=== PATIENT | male | born 1935 | race Hispanic/Latino ===

== ENCOUNTER 2018-12-22 11:50 | Observation (INO) | payer MEDICARE, OTHER ==
[~2018-12-22] VITALS: Ht 180.3 cm; Wt 61.4 kg
[~2018-12-22 11:50] MED LIST: ADVAIR 250-501 EACH INH; AMLODIPINE BESY10 MG PO; CLOPIDOGREL75 MG PO; GABAPENTIN100 MG; GLIMEPIRIDE1 MG; HYDROCHLOROTH12.5 M1 PO; LISINOPRIL20 MG PO; METOPROLOL TART50 MG PO; OMEPRAZOLE20 M1 PO; OMEPRAZOLE40 MG PO; PREDNISONE5 M1 PO; WARFARIN SODIUM2 MG PO; WARFARIN SODIUM3 MG PO
--- OUTSIDE RECORDS SUMMARY | 2018-12-22 11:53 | XMS REPORT | Clinical Summary ---
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 7 mcg/dose DISKUS Active albuterol (PROAIR Inhale 1-2 0 HFA,PROVENTIL puffs. 7 HFA,VENTOLIN HFA) 90 mcg/actuation inhaler Active amLODIPine (NORVASC) 5 mg Take 1 tablet 0 tablet by mouth. 7 Active levothyroxine (SYNTHROID, Take 25 mcg 0 LEVOXYL) 25 mcg tablet by mouth 8 daily. Active glimepiride (AMARYL) 1 MG Take 1 mg by 0 tablet mouth. Active metoprolol tartrate Take 25 mg by 0 (LOPRESSOR) 25 mg tablet mouth every 8 12 (twelve) hours. Active omeprazole (PriLOSEC) 40 0 MG capsule 8 Active warfarin (COUMADIN) 3 MG Take 3 mg by 0 tablet mouth. Active predniSONE (DELTASONE) 5 TAKE 1 TABLET 0 mg tablet BY MOUTH 8 EVERY DAY WITH FOOD/MILK Active hydroCHLOROthiazide Take 50 mg by 0 (HYDRODIURIL) 50 MG mouth daily. tablet Active ofloxacin (FLOXIN) 0.3 % 5 drops 0 otic solution daily. 01/20/2018 ofloxacin (FLOXIN) 0.3 % Administer 5 10 mL 2 otic solution drops to the 8 right ear 2 (two) times a day for 10 days. Active Problems No known active problems Encounters Care Team Description Date Type Specialty Shy Dillard MD Multiple nasal polyps (Primary Dx); Mixed hearing loss, bilateral; Tinnitus, bilateral 01/30/2018 Office Visit Otolaryngology Shy Dillard MD Bilateral impacted cerumen (Primary Dx); History of cholesteatoma; History of nasal polyp; Sensorineural hearing loss (SNHL) of both ears; Other infective acute otitis externa of right ear 01/10/2018 Office Visit Otolaryngology after 12/21/2017 Social History Date Tobacco Use Types Packs/Day Years Used Former Smoker Smokeless Tobacco: Never Used Alcohol Use Drinks/Week oz/Week Comments No Sex Assigned at Date Recorded Not on file Industry Job Start Date Occupation Not on file Not on file Not on file Travel End Travel History Travel Start No recent travel history available. Last Filed Vital Signs Time Taken Vital Sign Reading 01/30/2018 2:28 PM CDT Blood Pressure 183/83 01/30/2018 2:28 PM CDT Pulse 54 - Temperature - - Respiratory Rate - - Oxygen Saturation - - Inhaled Oxygen - Concentration 01/30/2018 2:28 PM CDT Weight 68 kg (150 lb) 01/30/2018 2:28 PM CDT Height 180.3 cm (5' 11") 01/30/2018 2:28 PM CDT Body Mass Index 20.92 Plan of Treatment Health Maintenance Due Date Last Done Comments SHINGLES VACCINES (#1) 1986 65+ PNEUMOCOCCAL VACCINE 2001 (1 of 2 - PCV13) PNEUMOCOCCAL 2001 POLYSACCHARIDE VACCINE AGE 65 AND OVER INFLUENZA VACCINE 05/30/2018 Results Not on fileafter 12/21/2017 Insurance Payer Benefit Subscriber ID Type Phone Address Plan / Group [employer] xxxxxxxxx O MCR Advance Directives Patient has advance care planning documents on file. For more information, joni owusu contact: Arturo Rasmussen [address] [place] [address]
--- OUTSIDE RECORDS SUMMARY | 2018-12-22 11:54 | XMS REPORT | Continuity of Care Document ---
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 11/28/2016 [facility] Asthma Resolved Problem 11/30/2018 [facility] Heart attack Resolved Problem 11/30/2018 [facility] Hypertension Resolved Problem 11/30/2018 [facility] Stroke Resolved Problem 11/30/2018 [facility] MALIGNANT NEOPLASM OF RIGHT KIDNEY, EXCE Active [facility] DIZZINESS AND GIDDINESS Active [facility] Medications Medication Details Route Status Patient Instructions Ordering Provider Order Date Source Warfarin 6 mg, 2 tab, Route: PO, Drug form: TAB, Q5PM, Dosing Weight 67.926, kg, Start date: 11/28/18 17:00:00 TRANSISTOR TESTER, Duration: 1 doses or times, Stop date: 11/28/18 17:00:00 CSTNotes: Nurse to ensure documentation of patient education per anticoagulation policy. Avoid large intake of vitamin-K containing foods diet. (Same As: Coumadin) WASTE: F/P - P Waste Black; E - P Waste Black Inactive 11/28/2018 [facility] Kirby packet 1 pkt, Route: PO, Drug Form: PWDR, Dosing Weight 67.926, kg, BID-Before Meals, Start date: 11/28/18 16:30:00 TRANSISTOR TESTER, Duration: 14 day, Stop date: 12/12/18 7:30:00 CSTNotes: (Same as: Kirby Mccarthy) Inactive 11/28/2018 [facility] losartan 100 mg oral tablet 100 mg=1 tab, PO, Daily, # 30 tab, 3 Refill(s) Active 11/28/2018 [facility] isosorbide mononitrate 60 mg oral tablet, extended release 60 mg=1 tab, PO, QAM, # 30 tab, 3 Refill(s) Active 11/28/2018 [facility] metoprolol tartrate 25 mg oral tablet 12.5 mg=0.5 tab, PO, Q12H, # 30 tab, 3 Refill(s) Active 11/28/2018 [facility] clopidogrel 75 mg oral tablet 75 mg=1 tab, PO, Daily, # 30 tab, 3 Refill(s) Active 11/28/2018 [facility] atorvastatin 40 mg oral tablet 40 mg=1 tab, PO, Bedtime, # 30 tab, 3 Refill(s) Active 11/28/2018 [facility] Aspirin 81 MG Enteric Coated Tablet 81 mg=1 tab, PO, Daily, # 100 tab, 3 Refill(s) Active 11/28/2018 [facility] pantoprazole 40 mg oral enteric coated tablet 40 mg=1 tab, PO, Q24H, # 30 tab, 3 Refill(s) Active 11/28/2018 [facility] NIFEdipine 60 mg oral tablet, extended release 60 mg=1 tab, PO, BID, # 60 tab, 3 Refill(s) Active 11/28/2018 [facility] normal saline 0.9% IV 250 mL 250 mL, Rate: 75 ml/hr, Infuse over: 3.3 hr, Route: IV, Dosing Weight 67.926 kg, Total Volume: 250, Start date: 11/28/18 10:38:00 TRANSISTOR TESTER, Duration: 1 doses or times, Stop date: 11/28/18 13:55:00 TRANSISTOR TESTER, 1.85, m2 Inactive 11/28/2018 [facility] Coumadin 7.5 mg, 1 tab, Route: PO, Drug form: TAB, Q5PM, Dosing Weight 67.926, kg, Start date: 11/27/18 17:00:00 TRANSISTOR TESTER, Duration: 1 doses or times, Stop date: 11/27/18 17:00:00 CSTNotes: Nurse to ensure documentation of patient education per anticoagulation policy. Avoid large intake of vitamin-K containing foods diet. WASTE: F/P - P Waste Black; E - P Waste Black (Same As: Coumadin) Inactive 11/27/2018 [facility] magnesium citrate 58.2 MG/ML Oral Solution 300 ml, Route: PO, Drug Form: LIQ, Dosing Weight 67.926, kg, ONCE, Start date: 11/27/18 15:45:00 TRANSISTOR TESTER, Stop date: 11/27/18 15:45:00 CSTNotes: (Same as: Citrate of Magnesia) Concentration: 1.745 gm / 30 mL Inactive 11/27/2018 [facility] magnesium citrate 58.2 MG/ML Oral Solution 300 ml, Route: PO, Drug Form: LIQ, Dosing Weight 67.926, kg, ONCE, Start date: 11/27/18 12:51:00 TRANSISTOR TESTER, Stop date: 11/27/18 12:51:00 CSTNotes: (Same as: Citrate of Magnesia) Concentration: 1.745 gm / 30 mL Inactive 11/27/2018 [facility] molasses 240 mL, Route: KS, Drug Form: SYRP, Dosing Weight 67.926, kg, ONCE, Milk of Molasses Enema, Start date: 11/27/18 12:50:00 TRANSISTOR TESTER, Stop date: 11/27/18 12:50:00 CSTNotes: (Same as:Molasses) Inactive 11/27/2018 [facility] Lactulose 667 MG/ML Oral Solution 10 gm, 15 ml, Route: PO, Drug form: SYRP, Daily, Dosing Weight 67.926, kg, PRN Constipation, Start date: 11/27/18 10:20:00 TRANSISTOR TESTER, Duration: 30 day, Stop date: 12/27/18 10:19:00 CSTNotes: (Same as:Chronulac) No Longer Active 11/27/2018 [facility] Zofran 4 mg, 2 mL, Route: IVP, Drug form: INJ, ONCE, Dosing Weight 67.926, kg, Priority: STAT, Start date: 11/27/18 8:57:00 TRANSISTOR TESTER, Stop date: 11/27/18 8:57:00 CSTNotes: (Same as: Zofran) MEDICATION WASTE Product Size: 4 mg Product Wasted: ___ mg Inactive 11/27/2018 [facility] Tylenol 325 mg, 1 tab, Route: PO, Drug form: TAB, ONCE, Start date: 11/26/18 18:45:00 TRANSISTOR TESTER, Stop date: 11/26/18 18:45:00 CSTNotes: Do not exceed 4 gm/day. (Same as: Tylenol) Inactive 11/27/2018 [facility] Acetaminophen 300 MG / Codeine Phosphate 30 MG Oral Tablet [Tylenol with Codeine #3] 1 tab, Route: PO, Dosing Weight 67.926, kg, ONCE, Start date: 11/26/18 17:51:00 TRANSISTOR TESTER, Stop date: 11/26/18 17:51:00 TRANSISTOR TESTER Inactive 11/26/2018 [facility] Warfarin 5 mg, 1 tab, Route: PO, Drug form: TAB, Q5PM, Dosing Weight 67.926, kg, Start date: 11/26/18 17:00:00 TRANSISTOR TESTER, Duration: 1 doses or times, Stop date: 11/26/18 17:00:00 CSTNotes: Nurse to ensure documentation of patient education per anticoagulation policy. Avoid large intake of vitamin-K containing foods diet. WASTE: F/P - P Waste Black; E - P Waste Black (Same As: Coumadin) Inactive 11/26/2018 [facility] Miralax 17 gm, 1 pkt, Route: PO, Drug form: PWDR, ONCE, Dosing Weight 67.926, kg, Start date: 11/26/18 16:42:00 TRANSISTOR TESTER, Stop date: 11/26/18 16:42:00 CSTNotes: Dissolve in 8 oz of water or juice. (Same as: Uma ax) Inactive 11/26/2018 [facility] Warfarin 5 mg, 1 tab, Route: PO, Drug form: TAB, Q5PM, Dosing Weight 67.926, kg, Start date: 11/25/18 17:00:00 TRANSISTOR TESTER, Duration: 1 doses or times, Stop date: 11/25/18 18:07:00 CSTNotes: Nurse to ensure documentation of patient education per anticoagulation policy. Avoid large intake of vitamin-K containing foods diet. WASTE: F/P - P Waste Black; E - P Waste Black (Same As: Coumadin) Inactive 11/25/2018 [facility] molasses 240 mL, Route: KS, Drug Form: SYRP, Dosing Weight 67.926, kg, ONCE, Milk of Molasses Enema, Start date: 11/24/18 17:32:00 TRANSISTOR TESTER, Stop date: 11/24/18 17:32:00 CSTNotes: (Same as:Molasses) Inactive 11/24/2018 [facility] Docusate Sodium 50 MG / sennosides, [facility] 8.6 MG Oral Tablet 1 tab, Route: PO, Drug Form: TAB, Dosing Weight 67.926, kg, BID, Start date: 11/24/18 17:00:00 TRANSISTOR TESTER, Duration: 30 day, Stop date: 12/24/18 9:00:00 CSTNotes: (Same as Senokot-S) Equiv. to Marline-Colace. No Longer Active 11/24/2018 [facility] Warfarin 5 mg, 1 tab, Route: PO, Drug form: TAB, Q5PM, Dosing Weight 67.926, kg, Start date: 11/24/18 17:00:00 TRANSISTOR TESTER, Duration: 1 doses or times, Stop date: 11/24/18 17:00:00 CSTNotes: Nurse to ensure documentation of patient education per anticoagulation policy. Avoid large intake of vitamin-K containing foods diet. WASTE: F/P - P Waste Black; E - P Waste Black (Same As: Coumadin) Inactive 11/24/2018 [facility] Docusate 100 mg, 1 cap, Route: PO, Drug form: CAP, BID, Dosing Weight 67.926, kg, PRN Constipation, Start date: 11/24/18 15:41:00 TRANSISTOR TESTER, Duration: 30 day, Stop date: 12/24/18 15:40:00 CSTNotes: (Same as: Colace) (Do Not Crush) No Longer Active 11/24/2018 [facility] Heparin 80 unit/kg Bolus (Heparin Dosing Weight) Route: IVP, PRN, 5,400 unit, 5.4 mL, Drug form: INJ, PRN, Heparin Protocol, Start date: 11/24/18 11:30:00 TRANSISTOR TESTER Stop date: 12/24/18 11:29:00 TRANSISTOR TESTER, 30 day No Longer Active 11/24/2018 [facility] heparin additive 25,000 unit [18 unit/kg/hr] + Premix Diluent Sodium Chloride 0.45% 500 mL 500 mL, Rate: 24.45 ml/hr, Infuse over: 20.4 hr, Route: IV, Dosing Weight 67.93 kg, Total Volume: 500 mL, Start date: 11/24/18 11:30:00 TRANSISTOR TESTER, Duration: 30 day, Stop date: 12/24/18 11:29:00 TRANSISTOR TESTER, 1.85, [id number]: Total Concentration=50 unit/ ml Total dijtuo=262 ml Send Med Request 2 hours prior to next bag No Longer Active 11/24/2018 [facility] Heparin 40 unit/kg Bolus (Heparin Dosing Weight) Route: IVP, PRN, 2,700 unit, 2.7 mL, Drug form: INJ, PRN, Heparin Protocol, Start date: 11/24/18 11:30:00 TRANSISTOR TESTER Stop date: 12/24/18 11:29:00 TRANSISTOR TESTER, 30 day No Longer Active 11/24/2018 [facility] Losartan 100 mg, 2 tab, Route: PO, Drug form: TAB, Daily, Dosing Weight 69.091, kg, Start date: 11/24/18 9:00:00 TRANSISTOR TESTER, Duration: 30 day, Stop date: 12/23/18 9:00:00 CSTNotes: (Same as: Cozaar) No Longer Active 11/24/2018 [facility] NIFEdipine 60 mg oral tablet, extended release 60 mg, 1 tab, Route: PO, Drug form: ERTAB, BID, Dosing Weight 67.926, kg, Start date: 11/23/18 11:07:00 TRANSISTOR TESTER, Duration: 30 day, Stop date: 12/23/18 9:00:00 CSTNotes: (Same as: Adalat CC, Procardia XL) Give on empty stomach. Take 1 hour before or 2 hours after meal; "Avoid grapefruit and grapefruit juice". Do not crush No Longer Active 11/23/2018 [facility] Nicardipine 40 mg, 200 mL, Rate: Titrate, Start Dose: 5 mg/hr, Titration: 2.5 mg/hr every 15 minutes, Goal(s): MAPNotes: Same as: Cardene No Longer Active 11/23/2018 [facility] Enoxaparin 40 mg, 0.4 mL, Route: SUB-Q, Drug form: INJ, [id number], Dosing Weight 67.926, kg, Start date: 11/23/18 9:00:00 TRANSISTOR TESTER, Duration: 30 day, Stop date: 12/22/18 9:00:00 CSTNotes: (Same as: Lovenox) No Longer Active 11/23/2018 [facility] clopidogrel 75 mg, 1 tab, Route: PO, Drug form: TAB, Daily, Dosing Weight 67.926, kg, Start date: 11/23/18 9:00:00 TRANSISTOR TESTER, Duration: 30 day, Stop date: 12/22/18 9:00:00 CSTNotes: (Same As: Plavix) No Longer Active 11/23/2018 [facility] Losartan 50 mg, 1 tab, Route: PO, Drug form: TAB, ONCE, Dosing Weight 67.926, kg, Start date: 11/23/18 8:30:00 TRANSISTOR TESTER, Stop date: 11/23/18 8:30:00 CSTNotes: (Same as: Raji) Inactive 11/23/2018 [facility] Nitroglycerin 0.4 mg, 1 tab, Route: SL, Drug form: TAB, Q5Min, Dosing Weight 67.926, kg, PRN Chest Pain, Start date: 11/22/18 14:57:00 TRANSISTOR TESTER, Duration: 3 doses or times, Stop date: Limited # of timesNotes: (Same as: Nitroquick, Nitrostat) "Do Not Crush" Sublingual tablet No Longer Active 11/22/2018 [facility] Losartan 100 mg, Route: PO, Drug form: TAB, Daily, Dosing Weight 69.091, kg, Start date: 11/22/18 9:00:00 TRANSISTOR TESTER, Duration: 30 day, Stop date: 12/21/18 9:00:00 CSTNotes: (Same as: Raji) No Longer Active 11/22/2018 [facility] Pepcid 20 mg, 2 mL, Route: IV, Drug form: INJ, ONCE, Dosing Weight 67.784, kg, Start date: 11/22/18 8:00:00 TRANSISTOR TESTER, Stop date: 11/22/18 8:00:00 CSTNotes: (Same as: Pepcid) Can be dilute in 5-10cc NS IVP: Slow IV push over at least 2 minutes. Inactive 11/22/2018 [facility] Solu-Medrol 125 mg, 2 mL, Route: IV, Drug form: INJ, ONCE, Dosing Weight 67.784, kg, Start date: 11/22/18 8:00:00 TRANSISTOR TESTER, Stop date: 11/22/18 8:00:00 CSTNotes: (Same as:Solu-MEDROL, A-Methapred) Inactive 11/22/2018 [facility] Sodium Chloride 0.9% (Bolus) IV 250 mL, 250 ml/hr, Infuse Over: 1 hr, Route: IV, 250, Drug form: INJ, ONCALL, Priority: Routine, Dosing Weight 67.784 kg, Start date: 11/22/18 3:00:00 TRANSISTOR TESTER, Duration: 1 doses or times No Longer Active 11/22/2018 [facility] Sodium Chloride 0.9% IV 750 mL 750 mL, Rate: 75 ml/hr, Infuse over: 10 hr, Route: IVPB, Dosing Weight 67.784 kg, Total Volume: 750, Start date: 11/22/18 2:48:00 TRANSISTOR TESTER, Duration: 24 hr, Stop date: 11/23/18 2:47:00 TRANSISTOR TESTER, 1.85, m2 No Longer Active 11/22/2018 [facility] Solu-Medrol 125 mg, 2 mL, Route: IV, Drug form: INJ, ONCE, Dosing Weight 67.784, kg, Start date: 11/21/18 12:59:00 TRANSISTOR TESTER, Stop date: 11/21/18 12:59:00 CSTNotes: (Same as:Solu-MEDROL, A-Methapred) Inactive 11/21/2018 [facility] Aspirin 81 mg, 1 tab, Route: PO, Drug form: ECTAB, Daily, Dosing Weight 69.091, kg, Start date: 11/20/18 17:00:00 TRANSISTOR TESTER, Duration: 30 day, Stop date: 12/20/18 9:00:00 CSTNotes: Do not crush or chew. (Same As: Ecotrin) No Longer Active 11/20/2018 [facility] EPINEPHrine 0.3 mg injectable kit 0.3 mg, Route: IM, Drug form: INJ, ONCALL, Dosing Weight 69.091, kg, Start date: 11/20/18 15:00:00 TRANSISTOR TESTER, Duration: 1 doses or timesNotes: (Same as: Epipen Auto Inejctor) Prefilled syringe for IM use. No Longer Active 11/20/2018 [facility] Losartan 25 mg, 1 tab, Route: PO, Drug form: TAB, Daily, Dosing Weight 69.091, kg, Start date: 11/20/18 12:00:00 TRANSISTOR TESTER, Duration: 30 day, Stop date: 12/20/18 9:00:00 CSTNotes: (Same as: Cozaar) No Longer Active 11/20/2018 [facility] atorvastatin 40 mg, 1 tab, Route: PO, Drug form: TAB, Bedtime, Dosing Weight 69.091, kg, Start date: 11/17/18 21:00:00 TRANSISTOR TESTER, Duration: 30 day, Stop date: 12/16/18 21:00:00 CSTNotes: (Same as: Lipitor) No Longer Active 11/18/2018 [facility] Prednisone 5 mg, 1 tab, Route: PO, Drug form: TAB, Daily, Dosing Weight 69.091, kg, Start date: 11/17/18 9:00:00 TRANSISTOR TESTER, Duration: 30 day, Stop date: 12/16/18 9:00:00 CSTNotes: Take with food. No Longer Active 11/17/2018 [facility] Omeprazole 40 mg, Route: PO, Drug form: DRC, Daily, Dosing Weight 69.091, kg, Start date: 11/17/18 9:00:00 TRANSISTOR TESTER, Duration: 30 day, Stop date: 12/16/18 9:00:00 TRANSISTOR TESTER Inactive 11/17/2018 [facility] Imdur 60 mg, 1 tab, Route: PO, Drug form: ERTAB, QAM, Dosing Weight 69.091, kg, Start date: 11/17/18 9:00:00 TRANSISTOR TESTER, Duration: 30 day, Stop date: 12/16/18 9:00:00 CSTNotes: (Same as:Imdur) "Do Not Crush" Take on empty stomach/ full glass of water. Do not crush No Longer Active 11/17/2018 [facility] metoprolol tartrate 25 mg, 1 tab, Route: PO, Drug form: TAB, BID, Dosing Weight 69.091, kg, Start date: 11/17/18 9:00:00 TRANSISTOR TESTER, Duration: 30 day, Stop date: 12/16/18 17:00:00 CSTNotes: (Same as: Lopressor) Inactive 11/17/2018 [facility] Amlodipine 5 mg, 1 tab, Route: PO, Drug form: TAB, BID, Dosing Weight 69.091, kg, Start date: 11/17/18 9:00:00 TRANSISTOR TESTER, Duration: 30 day, Stop date: 12/16/18 17:00:00 CSTNotes: (Same as: Norvasc) Inactive 11/17/2018 [facility] Furosemide 40 MG Oral Tablet [Lasix] 40 mg, 1 tab, Route: PO, Drug form: TAB, Daily, Dosing Weight 69.091, kg, Start date: 11/17/18 9:00:00 TRANSISTOR TESTER, Duration: 30 day, Stop date: 12/16/18 9:00:00 CSTNotes: (Same as: Lasix) May cause GI upset. Give with food or milk. No Longer Active 11/17/2018 [facility] Protonix 40 mg, 1 tab, Route: PO, Drug form: ECTAB, Q24H, Start date: 11/17/18 7:00:00 TRANSISTOR TESTER, Duration: 30 day, Stop date: 12/16/18 7:00:00 CSTNotes: Tablet should not be chewed or crushed. (Same as: Protonix) No Longer Active 11/17/2018 [facility] Thyroxine 25 microgram, 1 tab, Route: PO, Drug form: TAB, Daily, Dosing Weight 69.091, kg, Start date: 11/17/18 6:30:00 TRANSISTOR TESTER, Duration: 30 day, Stop date: 12/16/18 6:30:00 CSTNotes: Take 1 hour before or 2 hours after meal; Enteral feeds may interefere with the absorption of this medication. (Same as:Levothroid) No Longer Active 11/17/2018 [facility] Amlodipine 10 mg, 1 tab, Route: PO, Drug form: TAB, Daily, Dosing Weight 69.091, kg, Start date: 11/17/18 0:53:00 TRANSISTOR TESTER, Duration: 30 day, Stop date: 12/16/18 9:00:00 CSTNotes: (Same as: Norvasc) No Longer Active 11/17/2018 [facility] heparin additive 25,000 unit [18 unit/kg/hr] + Premix Diluent Sodium Chloride 0.45% 500 mL 500 mL, Rate: 24.87 ml/hr, Infuse over: 20.1 hr, Route: IV, Dosing Weight 69.091 kg, Total Volume: 500 mL, Start date: 11/17/18 0:29:00 TRANSISTOR TESTER, Duration: 30 day, Stop date: 12/17/18 0:28:00 TRANSISTOR TESTER, 1.86, [id number]: Total Concentration=50 unit/ ml Total zvoiec=198 ml Send Med Request 2 hours prior to next bag No Longer Active 11/17/2018 [facility] Heparin 40 unit/kg Bolus (Heparin Dosing Weight) Route: IVP, PRN, 2,800 unit, 2.8 mL, Drug form: INJ, PRN, Heparin Protocol, Start date: 11/17/18 0:29:00 TRANSISTOR TESTER Stop date: 12/17/18 0:28:00 TRANSISTOR TESTER, 30 day No Longer Active 11/17/2018 [facility] Heparin 80 unit/kg Bolus (Heparin Dosing Weight) Route: IVP, PRN, 5,500 unit, 5.5 mL, Drug form: INJ, PRN, Heparin Protocol, Start date: 11/17/18 0:29:00 TRANSISTOR TESTER Stop date: 12/17/18 0:28:00 TRANSISTOR TESTER, 30 day No Longer Active 11/17/2018 [facility] Calcium Gluconate 2 gm, 20 mL, Route: IVPB, PRN, Dosing Weight 69.091, kg, PRN Abnormal Lab Result, For NON-ICU Patients Only., Start date: 11/17/18 0:26:00 TRANSISTOR TESTER, Duration: 30 day, Stop date: 12/17/18 0:25:00 CSTNotes: WASTE: F/P - Sink; E - Municipal Trash Bin No Longer Active 11/17/2018 [facility] Magnesium Oxide 800 mg, 2 tab, Route: PO, Drug form: TAB, PRN, Dosing Weight 69.091, kg, PRN Abnormal Lab Result, For NON-ICU Patients Only., Start date: 11/17/18 0:26:00 TRANSISTOR TESTER, Duration: 30 day, Stop date: 12/17/18 0 :25:00 CSTNotes: (Same as: Mag-Ox 400) Magnesium oxide [id number] elemental magnesium Dose=____mg magnesium oxide (___mg elemental magnesium) No Longer Active 11/17/2018 [facility] Magnesium Sulfate 2 gm, 50 mL, Route: IVPB, Drug form: INJ, PRN, Dosing Weight 69.091, kg, PRN Abnormal Lab Result, For NON-ICU Patients Only., Start date: 11/17/18 0:26:00 TRANSISTOR TESTER, Duration: 30 day, Stop date: 12/17/18 0:25:00 CSTNotes: WASTE: F/P - Sink; E - Municipal Trash Bin No Longer Active 11/17/2018 [facility] potassium phosphate 30 mmol, 10 mL, Route: IVPB, PRN, Dosing Weight 69.091, kg, PRN Abnormal Lab Result, For NON-ICU Patients Only., Start date: 11/17/18 0:26:00 TRANSISTOR TESTER, Duration: 30 day, Stop date: 12/17/18 0:25:00 CSTNot es: (Same as: K Phosphate.) Do not infuse phosphorous concurrently in the same line as TPN or IVF that contains calcium. For double lumen central lines, phosphorous may be infused in a separate lumen from TPN. 1 mMol phoshate has 1.47 mEq potassium Infuse over 4 hours No Longer Active 11/17/2018 [facility] Potassium Chloride 10 mEq, 50 mL, Route: IVPB, Drug form: INJ, PRN, Dosing Weight 69.091, kg, PRN Abnormal Lab Result, For NON-ICU Patients Only, Start date: 11/17/18 0:26:00 TRANSISTOR TESTER, Duration: 30 day, Stop date: 12/17/18 0:25:00 CSTNotes: (Same as: KCL) Infuse over 2 hours. No Longer Active 11/17/2018 [facility] sodium phosphate 30 mmol, 10 mL, Route: IVPB, PRN, Dosing Weight 69.091, kg, PRN Abnormal Lab Result, For NON-ICU Patients Only., Start date: 11/17/18 0:26:00 TRANSISTOR TESTER, Duration: 30 day, Stop date: 12/17/18 0:25:00 CSTNot es: Infuse over 4 hour. Do not infuse phosphorous concurrently in the same line as TPN or IVF that contains calcium. For double lumen central lines, phosphorous may be infused in a separate lumen from TPN. No Longer Active 11/17/2018 [facility] potassium phosphate-sodium phosphate 250 mg-280 mg-160 mg oral powder for reconstitution 2 pkt, Route: PO, Drug Form: PDR/REC, Dosing Weight 69.091, kg, PRN, PRN Abnormal Lab Result, For NON-ICU Patients Only, Start date: 11/17/18 0:26:00 TRANSISTOR TESTER, Duration: 30 day, Stop date: 12/17/18 0:25:00 CSTNotes: (Same as: Phos-NaK) Each 1.5 gm pkt has 250mg phosphorous. Mix w/2.5oz water and stir. No Longer Active 11/17/2018 [facility] meclizine 25 mg oral tablet 25 mg=1 tab, PO, Daily, 0 Refill(s) No Longer Active 11/17/2018 [facility] Warfarin 4 mg, 2 tab, Route: PO, Drug form: TAB, Q- and Th, Dosing Weight 69.545, kg, Start date: 03/06/18 9:00:00 CDT, Duration: 30 day, Stop date: 04/03/18 9:00:00 CDTNotes: Nurse to ensure documentation of patient education per anticoagulation policy. Avoid large intake of vitamin-K containing foods diet. (Same As: Coumadin) WASTE: F/P - P Waste Black; E - P Waste Black No Longer Active 03/06/2018 [facility] atorvastatin 80 mg, 2 tab, Route: PO, Drug form: TAB, Bedtime, Dosing Weight 69.545, kg, Start date: 03/05/18 21:00:00 CDT, Duration: 30 day, Stop date: 04/03/18 21:00:00 CDTNotes: (Same as: Lipitor) Inactive 03/06/2018 [facility] Omnipaque 350 75 ml, Route: IV, Drug Form: SOLN, Dosing Weight 69.545, kg, ONCE, Start date: 03/05/18 12:29:00 CDT, Stop date: 03/05/18 12:29:00 CDTNotes: (same as:Omnipaque 350). WASTE: F/P - Black; E - Municipal Trash Bin Inactive 03/05/2018 [facility] Warfarin 4 mg, 2 tab, Route: PO, Drug form: TAB, Q-M-W-F, Dosing Weight 69.545, kg, Start date: 03/05/18 9:00:00 CDT, Duration: 30 day, Stop date: 04/02/18 9:00:00 CDTNotes: Nurse to ensure documentation of patient education per anticoagulation policy. Avoid large intake of vitamin-K containing foods diet. (Same As: Coumadin) WASTE: F/P - P Waste Black; E - P Waste Black Inactive 03/05/2018 [facility] atorvastatin 40 mg, 1 tab, Route: PO, Drug form: TAB, Bedtime, Dosing Weight 69.545, kg, Start date: 03/04/18 21:00:00 CDT, Duration: 30 day, Stop date: 04/02/18 21:00:00 CDTNotes: (Same as: Lipitor) No Longer Active 03/05/2018 [facility] Hydralazine 10 mg, 0.5 mL, Route: IV, Drug form: INJ, Q3H, Dosing Weight 69.545, kg, PRN Other -See Comment, Start date: 03/04/18 13:16:00 CDT, Duration: 30 day, Stop date: 04/03/18 13:15:00 CDT, SBP>160 mmHgNotes: (Same as: Apresoline) Push over 5 minutes No Longer Active 03/04/2018 [facility] Warfarin 3 mg, 3 tab, Route: PO, Drug form: TAB, Q-Sa and Turcios, Dosing Weight 69.545, kg, Start date: 03/04/18 9:00:00 CDT, Stop date: 03/31/18 20:00:00 CDTNotes: Nurse to ensure documentation of patient education per anticoagulation policy. Avoid large intake of vitamin-K containing foods diet. (Same As: Coumadin) WASTE: F/P - P Waste Black; E - P Waste Black No Longer Active 03/04/2018 [facility] budesonide-formoterol 2 puff, Route: INHALER, Drug Form: AERO/A, BID, Start date: 03/04/18 9:00:00 CDT, Duration: 30 day, Stop date: 04/02/18 17:00:00 CDTNotes: (Same as: Symbicort) WASTE: Aerosol - Return to Pharmacy No Longer Active 03/04/2018 [facility] Prednisone 5 mg, 5 mL, Route: PO, Drug form: SOLN, Daily, Dosing Weight 69.545, kg, Start date: 03/04/18 9:00:00 CDT, Duration: 30 day, Stop date: 04/02/18 9:00:00 CDTNotes: (Same as: Liquid Pred) Take with food. Inactive 03/04/2018 [facility] Omeprazole 40 mg, Route: PO, Drug form: DRC, Daily, Dosing Weight 69.545, kg, Start date: 03/04/18 9:00:00 CDT, Duration: 30 day, Stop date: 04/02/18 9:00:00 CDT Inactive 03/04/2018 [facility] metoprolol tartrate 25 mg, 1 tab, Route: PO, Drug form: TAB, BID, Dosing Weight 69.545, kg, Start date: 03/04/18 9:00:00 CDT, Duration: 30 day, Stop date: 04/02/18 17:00:00 CDTNotes: (Same as: Lopressor) No Longer Active 03/04/2018 [facility] Hydrochlorothiazide 25 mg, 1 tab, Route: PO, Drug form: TAB, Daily, Dosing Weight 69.545, kg, Start date: 03/04/18 9:00:00 CDT, Duration: 30 day, Stop date: 04/02/18 9:00:00 CDTNotes: (Same as: Hydrodiuril) With food. No Longer Active 03/04/2018 [facility] Saline Flush 0.9% 10 ml, Route: IVP, Drug Form: INJ, Dosing Weight 69.545, kg, Q12H, Start date: 03/04/18 9:00:00 CDT, Duration: 30 day, Stop date: 04/02/18 21:00:00 CDTNotes: (Same as: BD Posiflush) No Longer Active 03/04/2018 [facility] Thyroxine 25 microgram, 1 tab, Route: PO, Drug form: TAB, Daily, Dosing Weight 69.545, kg, Start date: 03/04/18 9:00:00 CDT, Duration: 30 day, Stop date: 04/02/18 9:00:00 CDTNotes: Take 1 hour before or 2 hours after meal; Enteral feeds may interefere with the absorption of this medication. (Same as:Levothroid) No Longer Active 03/04/2018 [facility] Advair Diskus 250 mcg-50 mcg inhalation powder 1 puff, Route: INHALATION, Drug Form: AERO, Dosing Weight 69.545, kg, BID, Start date: 03/04/18 9:00:00 CDT, Duration: 30 day, Stop date: 04/02/18 17:00:00 CDT Inactive 03/04/2018 [facility] Amlodipine 5 mg, 1 tab, Route: PO, Drug form: TAB, BID, Dosing Weight 69.545, kg, Start date: 03/04/18 9:00:00 CDT, Duration: 30 day, Stop date: 04/02/18 17:00:00 CDTNotes: (Same as: Norvasc) No Longer Active 03/04/2018 [facility] predniSONE 5 mg, 2 tab, Route: PO, Drug form: TAB, Daily, Start date: 03/04/18 9:00:00 CDT, Duration: 30 day, Stop date: 04/02/18 9:00:00 CDTNotes: Take with food. No Longer Active 03/04/2018 [facility] Protonix 40 mg, 1 tab, Route: PO, Drug form: ECTAB, Q12H, Start date: 03/04/18 9:00:00 CDT, Duration: 30 day, Stop date: 04/02/18 21:00:00 CDTNotes: Tablet should not be chewed or crushed. (Same as: Protonix) No Longer Active 03/04/2018 [facility] Dextrose 50% Syringe 25 gm, 50 mL, Route: IVP, Drug Form: INJ, Dosing Weight 69.545, kg, PRN, PRN Blood Glucose Results, Start date: 03/04/18 7:46:00 CDT, Duration: 30 day, Stop date: 04/03/18 7:45:00 CDT No Longer Active 03/04/2018 [facility] Glucagon 1 mg, Route: IM, Drug form: PDR/INJ, PRN, Dosing Weight 69.545, kg, PRN Blood Glucose Results, Start date: 03/04/18 7:46:00 CDT, Duration: 30 day, Stop date: 04/03/18 7:45:00 CDT No Longer Active 03/04/2018 [facility] Insulin Lispro 2 unit, 0.02 mL, Route: SUB-Q, Drug form: SOLN, TID-Before Meals, Dosing Weight 69.545, kg, PRN Blood Glucose Results, Start date: 03/04/18 7:46:00 CDT, Duration: 30 day, Stop date: 04/03/18 7:45:00 CDTNotes: (Same as: Humalog ) Roll in palms of hands gently; Do not shake `vigorously. "Single Patient Use Only " WASTE: F/P - Black; E - Municipal Trash Bin Stable for 28 days at room temperature. Expires in days from Date No Longer Active 03/04/2018 [facility] Saline Flush 0.9% 10 ml, Route: IVP, Drug Form: INJ, Dosing Weight 69.545, kg, PRN, PRN Line Flush, Start date: 03/04/18 7:10:00 CDT, Duration: 30 day, Stop date: 04/03/18 7:09:00 CDTNotes: (Same as: BD Posiflush) No Longer Active 03/04/2018 [facility] non-formulary 80 mg=, PO, Daily, Take 2 capsules (80mg) by mouth every morning. Take on a empty stomach at least 1 hour before or 2 hours after breakfast or lunch, Refill(s) 0 Active 03/04/2018 [facility] Prednisone 5 mg, PO, Daily, Quantity sufficient, 0 Refill(s) Active 03/04/2018 [facility] valsartan 80 mg, PO, Daily, Patient Started on this med Monday. Dizziness started after taking this medication pre patient and spouse, 0 Refill(s) Inactive 03/04/2018 [facility] Warfarin 3 mg, PO, Daily, takes 3mg Monday and Monday, 0 Refill(s) Active 03/04/2018 [facility] Amlodipine 5 mg, PO, BID, 0 Refill(s) Active 03/04/2018 [facility] Hydrochlorothiazide 25 mg, PO, Daily, 0 Refill(s) Active 03/04/2018 [facility] omeprazole 40 mg oral delayed release capsule 40 mg=1 cap, PO, Daily, 0 Refill(s) Active 03/04/2018 [facility] Thyroxine 25 microgram, PO, Daily, 0 Refill(s) Active 03/04/2018 [facility] metoprolol tartrate 25 mg, PO, BID, 0 Refill(s) Active 03/04/2018 [facility] Advair Diskus 250 mcg-50 mcg inhalation powder 1 puff, INHALATION, BID, 0 Refill(s) Active 03/04/2018 [facility] Meclizine 25 mg, Route: PO, Drug form: TAB, ONCE, Dosing Weight 77.727, kg, Priority: STAT, Start date: 03/04/18 2:42:00 CDT, Stop date: 03/04/18 2:42:00 CDT Inactive 03/04/2018 [facility] Saline Flush 0.9% 10 mL, Route: IVP, Drug Form: INJ, Dosing Weight 77.727, kg, PRN, PRN Line Flush, Start date: 03/04/18 0:56:00 CDT, Duration: 30 day, Stop date: 04/03/18 0:55:00 CDTNotes: (Same as: BD Posiflush) No Longer Active 03/04/2018 [facility] Allergies, Adverse Reactions, Alerts Substance Category Reaction Severity Reaction type Status Date Reported Comments Source aspirin Assertion Drug allergy Active [facility] Vicodin Assertion Drug allergy Active [facility] iodine topical Assertion Drug allergy Active [facility] ciprofloxacin Assertion Drug allergy Active [facility] hydrALAZINE Assertion Drug allergy Active [facility] propoxyphene Assertion Drug allergy Active [facility] barium sulfate Assertion Drug allergy Active [facility] Zocor Assertion Drug allergy Active [facility] Benadryl Assertion Drug allergy Active [facility] Januvia Assertion Drug allergy Active [facility] contrast media (iodine-based) Assertion Drug allergy Active [facility] Xarelto Assertion Drug allergy Active [facility] metFORMIN Assertion Drug allergy Active [facility] HYDROcodone Assertion Drug allergy Active [facility] levoFLOXacin Assertion Drug allergy Active [facility] Immunizations Immunization Date Given Site Status Last Updated Comments Source Results Order Name Results Value Reference Range Date Interpretation Comments Source CHEM PANEL eGFR 39 mL/min/1.73m2 11/28/2018 Result Comment: The eGFR is calculated using the CKD-EPI formula. In most young, healthy individuals the eGFR will be >90 mL/min/1.73m2. The eGFR declines with age. An eGFR of 60-89 may be normal in some populations, particularly the elderly, for whom the CKD-EPI formula has not been extensively validated. Use of the eGFR is not recommended in the following populations: Individuals with unstable creatinine concentrations, including patients and those with serious co-morbid conditions. Patients with extremes in muscle mass or diet. The data above are obtained from the National Kidney Disease Education Program (NKDEP) which additionally recommends that when the eGFR is used in patients with extremes of body mass index for purposes of drug dosing, the eGFR should be multiplied by the estimated BMI. [facility] CHEM PANEL CO2 24 meq/L 24 - 32 11/28/2018 [facility] CHEM PANEL Chloride Lvl 108 meq/L 95 - 109 11/28/2018 [facility] CHEM PANEL AGAP 12.4 meq/L 10.0 - 20.0 11/28/2018 [facility] CHEM PANEL Calcium Lvl 8.1 mg/dL 8.5 - 10.5 11/28/2018 [facility] CHEM PANEL BUN 41 mg/dL 7 - 22 11/28/2018 [facility] CHEM PANEL Glucose Lvl 174 mg/dL 70 - 99 11/28/2018 [facility] CHEM PANEL Sodium Lvl 140 meq/L 135 - 145 11/28/2018 [facility] CHEM PANEL Potassium Lvl 4.4 meq/L 3.5 - 5.1 11/28/2018 [facility] CHEM PANEL Creatinine Lvl 1.63 mg/dL 0.50 - 1.40 11/28/2018 [facility] CHEM PANEL eGFR 33 mL/min/1.73m2 11/28/2018 Result Comment: The eGFR is calculated using the CKD-EPI formula. In most young, healthy individuals the eGFR will be >90 mL/min/1.73m2. The eGFR declines with age. An eGFR of 60-89 may be normal in some populations, particularly the elderly, for whom the CKD-EPI formula has not been extensively validated. Use of the eGFR is not recommended in the following populations: Individuals with unstable creatinine concentrations, including patients and those with serious co-morbid conditions. Patients with extremes in muscle mass or diet. The data above are obtained from the National Kidney Disease Education Program (NKDEP) which additionally recommends that when the eGFR is used in patients with extremes of body mass index for purposes of drug dosing, the eGFR should be multiplied by the estimated BMI. [facility] CHEM PANEL Calcium Lvl 8.4 mg/dL 8.5 - 10.5 11/28/2018 [facility] CHEM PANEL CO2 21 meq/L 24 - 32 11/28/2018 [facility] CHEM PANEL Chloride Lvl 107 meq/L 95 - 109 11/28/2018 [facility] CHEM PANEL AGAP 15.4 meq/L 10.0 - 20.0 11/28/2018 [facility] CHEM PANEL BUN 43 mg/dL 7 - 22 11/28/2018 [facility] CHEM PANEL Sodium Lvl 139 meq/L 135 - 145 11/28/2018 [facility] CHEM PANEL Creatinine Lvl 1.85 mg/dL 0.50 - 1.40 11/28/2018 [facility] CHEM PANEL Potassium Lvl 4.4 meq/L 3.5 - 5.1 11/28/2018 [facility] CHEM PANEL Glucose Lvl 78 mg/dL 70 - 99 11/28/2018 [facility] CHEM PANEL Magnesium Lvl 3.6 mg/dL 1.8 - 2.4 11/28/2018 Result Comment: Critical Result(s) called to Rebecca Kim at 11/28/2018 03:18 byJw. Read back OK. [facility] CHEM PANEL Phosphorus 4.0 mg/dL 2.5 - 4.5 11/28/2018 [facility] HEMATOLOGY PT 18.6 s 12.0 - 14.7 11/28/2018 [facility] HEMATOLOGY INR 1.59 0.85 - 1.17 11/28/2018 [facility] HEMATOLOGY Lymphocytes # 1.3 K/CMM 1.0 - 5.5 11/28/2018 [facility] HEMATOLOGY Neutrophils # 8.8 K/CMM 1.5 - 8.1 11/28/2018 [facility] HEMATOLOGY Monocytes 7.7 % 2.0 - 12.0 11/28/2018 [facility] HEMATOLOGY Eosinophils 1.3 % 0.0 - 4.0 11/28/2018 [facility] HEMATOLOGY Basophils 0.4 % 0.0 - 1.0 11/28/2018 [facility] HEMATOLOGY Eosinophils # 0.1 K/CMM 0.0 - 0.5 11/28/2018 [facility] HEMATOLOGY Monocytes # 0.9 K/CMM 0.0 - 0.8 11/28/2018 [facility] HEMATOLOGY Anisocyte 1+ *ABN* (11/28/18 2:15 AM) None Seen 11/28/2018 [facility] HEMATOLOGY Segs 78.9 % 45.0 - 75.0 11/28/2018 [facility] HEMATOLOGY Lymphocytes 11.7 % 20.0 - 40.0 11/28/2018 [facility] HEMATOLOGY MCH 26.3 pg 27.0 - 31.0 11/28/2018 [facility] HEMATOLOGY MCHC 32.9 g/dL 32.0 - 36.0 11/28/2018 [facility] HEMATOLOGY RDW 21.4 % 11.5 - 14.5 11/28/2018 [facility] HEMATOLOGY MCV 80.0 fL 80.0 - 94.0 11/28/2018 [facility] HEMATOLOGY Hct 33.7 % 42.0 - 54.0 11/28/2018 [facility] HEMATOLOGY Platelet 192 K/CMM 133 - 450 11/28/2018 [facility] HEMATOLOGY MPV 8.7 fL 7.4 - 10.4 11/28/2018 [facility] HEMATOLOGY WBC 11.2 K/CMM 3.7 - 10.4 11/28/2018 [facility] HEMATOLOGY Hgb 11.1 g/dL 14.0 - 18.0 11/28/2018 [facility] HEMATOLOGY RBC 4.21 M/CMM 4.70 - 6.10 11/28/2018 [facility] Abdomen AP DX Abdomen AP DX EXAM: XR ABDOMEN 1 VIEW DATE: 11/27/2018 15:41 TRANSISTOR TESTER INDICATION: - constipation COMPARISON: Abdominal x-ray from 11/27/2018, 10:19 AM TECHNIQUE: AP supine view of the abdomen. FINDINGS: Interval improved now mild to moderate gaseous distention of the small bowel loops are seen as well as moderate fecal material throughout the colonic loops of bowel, more prominent at the cecum and ascending colon. Air is present within the stomach and rectum. Multiple surgical sutures are seen in the abdomen, unchanged. Lower thorax is unremarkable. Multilevel degenerative changes including right lateral subluxation of L4. IMPRESSION: 1. Interval improved now mild to moderate gaseous dilated small bowel loops in a nonobstructive pattern. 2. Moderate diffuse colonic stool burden. 11/27/2018 - - Read by: Howard Eid MD Dictated Date/time: 11/27/18 20:09 Electronically Signed by: Howard Eid MD 11/27/18 20:14 FINAL REPORT [facility] CHEM PANEL eGFR 47 mL/min/1.73m2 11/27/2018 Result Comment: The eGFR is calculated using the CKD-EPI formula. In most young, healthy individuals the eGFR will be >90 mL/min/1.73m2. The eGFR declines with age. An eGFR of 60-89 may be normal in some populations, particularly the elderly, for whom the CKD-EPI formula has not been extensively validated. Use of the eGFR is not recommended in the following populations: Individuals with unstable creatinine concentrations, including patients and those with serious co-morbid conditions. Patients with extremes in muscle mass or diet. The data above are obtained from the National Kidney Disease Education Program (NKDEP) which additionally recommends that when the eGFR is used in patients with extremes of body mass index for purposes of drug dosing, the eGFR should be multiplied by the estimated BMI. [facility] CHEM PANEL Magnesium Lvl 2.5 mg/dL 1.8 - 2.4 11/27/2018 [facility] CHEM PANEL Phosphorus 3.6 mg/dL 2.5 - 4.5 11/27/2018 [facility] HEMATOLOGY Eosinophils # 0.1 K/CMM 0.0 - 0.5 11/27/2018 [facility] HEMATOLOGY Monocytes # 0.6 K/CMM 0.0 - 0.8 11/27/2018 [facility] HEMATOLOGY Neutrophils # 6.1 K/CMM 1.5 - 8.1 11/27/2018 [facility] HEMATOLOGY Basophils 0.1 % 0.0 - 1.0 11/27/2018 [facility] HEMATOLOGY Lymphocytes # 1.0 K/CMM 1.0 - 5.5 11/27/2018 [facility] HEMATOLOGY Segs 77.8 % 45.0 - 75.0 11/27/2018 [facility] HEMATOLOGY Lymphocytes 12.3 % 20.0 - 40.0 11/27/2018 [facility] HEMATOLOGY Monocytes 8.3 % 2.0 - 12.0 11/27/2018 [facility] HEMATOLOGY Eosinophils 1.5 % 0.0 - 4.0 11/27/2018 [facility] HEMATOLOGY Hgb 10.3 g/dL 14.0 - 18.0 11/27/2018 [facility] HEMATOLOGY MCH 26.8 pg 27.0 - 31.0 11/27/2018 [facility] HEMATOLOGY Hct 30.3 % 42.0 - 54.0 11/27/2018 [facility] HEMATOLOGY MCV 79.2 fL 80.0 - 94.0 11/27/2018 [facility] HEMATOLOGY RBC 3.83 M/CMM 4.70 - 6.10 11/27/2018 [facility] HEMATOLOGY Platelet 147 K/CMM 133 - 450 11/27/2018 [facility] HEMATOLOGY MPV 8.4 fL 7.4 - 10.4 11/27/2018 [facility] HEMATOLOGY RDW 20.8 % 11.5 - 14.5 11/27/2018 [facility] HEMATOLOGY MCHC 33.8 g/dL 32.0 - 36.0 11/27/2018 [facility] HEMATOLOGY WBC 7.8 K/CMM 3.7 - 10.4 11/27/2018 [facility] CHEM PANEL Glucose Lvl 116 mg/dL 70 - 99 11/27/2018 [facility] CHEM PANEL AGAP 14.8 meq/L 10.0 - 20.0 11/27/2018 [facility] CHEM PANEL Calcium Lvl 7.7 mg/dL 8.5 - 10.5 11/27/2018 [facility] CHEM PANEL Chloride Lvl 107 meq/L 95 - 109 11/27/2018 [facility] CHEM PANEL CO2 20 meq/L 24 - 32 11/27/2018 [facility] CHEM PANEL Creatinine Lvl 1.39 mg/dL 0.50 - 1.40 11/27/2018 [facility] CHEM PANEL Sodium Lvl 138 meq/L 135 - 145 11/27/2018 [facility] CHEM PANEL Potassium Lvl 3.8 meq/L 3.5 - 5.1 11/27/2018 [facility] CHEM PANEL BUN 41 mg/dL 7 - 22 11/27/2018 [facility] HEMATOLOGY PT 15.5 s 12.0 - 14.7 11/27/2018 [facility] HEMATOLOGY INR 1.25 0.85 - 1.17 11/27/2018 [facility] Abdomen AP DX Abdomen AP DX EXAM: XR ABDOMEN 1 VIEW DATE: 11/27/2018 1019 hours INDICATION: Nausea with constipation. COMPARISON: Abdominal x-ray from 11/24/2018. TECHNIQUE: Limited AP supine view of the abdomen. FINDINGS: Again noted persisting gaseous distention of the small bowel loops are seen as well as moderate fecal material throughout the colonic loops of bowel, more prominent at the cecum and ascending colon. Air is present within the stomach and rectum. Multiple surgical sutures are seen in the abdomen, unchanged. Lower thorax is unremarkable. IMPRESSION: 1. Persistent gaseous dilated small bowel loops which may represent ileus or partial small bowel obstruction. 2. Moderate colonic stool burden, grossly unchanged along the cecum and ascending colon. 11/27/2018 - - This report was dictated by a Dental Detail Representative/Fellow/Physician Grain Operator. I have personally reviewed the images as well as the interpretation and agree with the findings. Read by: Eric Stephens DO Resident/Fellow/Physician Grain Operator: Eric Stephens DO Dictated Date/time: 11/27/18 11:49 Electronically Signed by: Ruben Ferguson 11/27/18 12:02 FINAL REPORT [facility] HEMATOLOGY PT 14.5 s 12.0 - 14.7 11/26/2018 [facility] HEMATOLOGY INR 1.15 0.85 - 1.17 11/26/2018 [facility] HEMATOLOGY MPV 8.5 fL 7.4 - 10.4 11/26/2018 [facility] HEMATOLOGY Platelet 130 K/CMM 133 - 450 11/26/2018 [facility] HEMATOLOGY MCV 79.5 fL 80.0 - 94.0 11/26/2018 [facility] HEMATOLOGY RBC 3.48 M/CMM 4.70 - 6.10 11/26/2018 [facility] HEMATOLOGY Hct 27.6 % 42.0 - 54.0 11/26/2018 [facility] HEMATOLOGY RDW 20.8 % 11.5 - 14.5 11/26/2018 [facility] HEMATOLOGY Hgb 9.1 g/dL 14.0 - 18.0 11/26/2018 [facility] HEMATOLOGY MCH 26.1 pg 27.0 - 31.0 11/26/2018 [facility] HEMATOLOGY MCHC 32.8 g/dL 32.0 - 36.0 11/26/2018 [facility] HEMATOLOGY WBC 6.5 K/CMM 3.7 - 10.4 11/26/2018 [facility] HEMATOLOGY Plav Effect Plt 152 PRU 11/26/2018 [facility] HEMATOLOGY Monocytes 8.3 % 2.0 - 12.0 11/26/2018 [facility] HEMATOLOGY Lymphocytes 14.6 % 20.0 - 40.0 11/26/2018 [facility] HEMATOLOGY Segs 75.4 % 45.0 - 75.0 11/26/2018 [facility] HEMATOLOGY Eosinophils # 0.1 K/CMM 0.0 - 0.5 11/26/2018 [facility] HEMATOLOGY Monocytes # 0.5 K/CMM 0.0 - 0.8 11/26/2018 [facility] HEMATOLOGY Lymphocytes # 0.9 K/CMM 1.0 - 5.5 11/26/2018 [facility] HEMATOLOGY Eosinophils 1.4 % 0.0 - 4.0 11/26/2018 [facility] HEMATOLOGY Neutrophils # 4.9 K/CMM 1.5 - 8.1 11/26/2018 [facility] HEMATOLOGY Basophils 0.3 % 0.0 - 1.0 11/26/2018 [facility] CHEM PANEL Magnesium Lvl 2.7 mg/dL 1.8 - 2.4 11/25/2018 [facility] HEMATOLOGY Plav Effect Plt 198 PRU 11/25/2018 [facility] HEMATOLOGY PTT 149.4 s 22.9 - 35.8 11/25/2018 Result Comment: Critical Result(s) called to ANAHI ANTONIO at 11/25/2018 06:35 byJUANA. Read back OK. [facility] HEMATOLOGY PTT 115.2 s 22.9 - 35.8 11/25/2018 Result Comment: Critical Result(s) called to Anahi Antonio at 11/24/2018 21:06 by Maurice Combs. Read back OK. [facility] HEMATOLOGY PTT 36.7 s 22.9 - 35.8 11/24/2018 [facility] HEMATOLOGY Anisocyte 1+ *ABN* (11/24/18 11:50 AM) None Seen 11/24/2018 [facility] Abdomen AP DX Abdomen AP DX EXAM: XR ABDOMEN 1 VIEW DATE: 11/24/2018 15:40 TRANSISTOR TESTER INDICATION: - r/o obstruction ADDITIONAL INFORMATION: None. COMPARISON: CT chest 11/17/2018 TECHNIQUE: Frontal images of the abdomen=2. FINDINGS: Lines and tubes: Overlying electrocardiogram leads. Lower thorax: Unremarkable where visualized. Bowel: Moderately large rectal stool burden with frothy appearance of stool within the cecum. No dilated colonic loops. Gaseous distention and dilatation of small bowel loops within the left abdomen measuring up to approximately 4.4 cm. Solid organs: No abnormal mass or organomegaly seen. Delayed right renal nephrogram may indicate retained contrast from prior contrast enhanced exam. Contrast opacified bladder. Calcifications: No abnormal calcifications found. Bones: Degenerative changes of the thoracolumbar spine. IMPRESSION: 1. Gaseous distention and dilatation of small bowel loops may represent ileus or partial small bowel obstruction. 2. Moderately large colonic stool burden with frothy appearance of stool within the cecum may indicate slow transit or constipation. 11/24/2018 - - Read by: Marques Tirado MD PHD Dictated Date/time: 11/24/18 21:13 Electronically Signed by: Marques Tirado MD PH 11/24/18 21:17 FINAL REPORT [facility] CHEM PANEL Phosphorus 3.9 mg/dL 2.5 - 4.5 11/24/2018 [facility] HEMATOLOGY POC Activated Clotting Time 153 s 11/23/2018 [facility] HEMATOLOGY POC Activated Clotting Time 162 s 11/23/2018 [facility] HEMATOLOGY POC Activated Clotting Time 166 s 11/23/2018 [facility] HEMATOLOGY Microcyte 1+ *ABN* (11/23/18 12:40 AM) None Seen 11/23/2018 [facility] PARATHYROID PROFILE Ca Ion WB 1.05 mMol/L 1.05 - 1.25 11/23/2018 [facility] PARATHYROID PROFILE Ca Norm WB 1.07 mMol/L 1.05 - 1.25 11/23/2018 [facility] HEMATOLOGY Plt Morph Normal (11/22/18 4:18 PM) 11/22/2018 [facility] HEMATOLOGY Atypical Lymphs 0.0 % <=0.0 % 11/22/2018 [facility] HEMATOLOGY Basophils # 0.1 K/CMM 0.0 - 0.2 11/22/2018 [facility] HEMATOLOGY Bands 0.0 % 0.0 - 11.0 11/22/2018 [facility] PARATHYROID PROFILE Ca Ion WB 1.12 mMol/L 1.05 - 1.25 11/22/2018 [facility] PARATHYROID PROFILE Ca Norm WB 1.07 mMol/L 1.05 - 1.25 11/22/2018 [facility] BLOOD BANK RESULTS Antibody Scrn Negative (11/22/18 4:44 AM) 11/22/2018 [facility] BLOOD BANK RESULTS ABO/Rh O POS 11/22/2018 [facility] HEMATOLOGY Microcyte 1+ *ABN* (11/22/18 4:44 AM) None Seen 11/22/2018 [facility] HEMATOLOGY Microcyte 1+ *ABN* (11/21/18 12:24 AM) None Seen 11/21/2018 [facility] Lung ventilation/perfusion scan NM Lung ventilation/perfusion scan NM EXAM: NM Pulmonary Ventilation and Perfusion Imaging DATE: 11/20/2018 13:59 TRANSISTOR TESTER INDICATION: - rule out chronic PE COMPARISON: None. TECHNIQUE: After inhalation of 20 mCi of Xe-133 gas posterior images of the lungs were obtained. Subsequently, the patient was injected with 5 mCi of Tc-99m MAA and multiple static images of the lungs were obtained in different projections. FINDINGS: Ventilation images demonstrate homogenous tracer distribution in the both lungs. Subsequently there is washout of xenon gas from both lungs with xenon retention in the left lung suggestive of mild airway obstruction. Perfusion images demonstrate heterogenous uptake, with no segmental or subsegmental mismatch. There are no segmental or subsegmental perfusion defects seen on perfusion images to suggest acute pulmonary embolism. IMPRESSION: 1. Low probability for pulmonary embolism. 2. Mild left lung air trapping suggestive of obstructive lung disease. 11/20/2018 - - This report was dictated by a Dental Detail Representative/Fellow/Physician Grain Operator. I have personally reviewed the images as well as the interpretation and agree with the findings. Read by: Amrik Mantilla MD Resident/Fellow/Physician Grain Operator: Amrik Mantilla MD Dictated Date/time: 11/20/18 16:28 Electronically Signed by: Bisi Goins MD 11/20/18 17:31 FINAL REPORT [facility] URINE AND STOOL UA Urobilinogen <=1.0 mg/dL 0.1 - 1.0 11/20/2018 [facility] URINE AND STOOL UA Sq Epi None Seen 11/20/2018 [facility] URINE AND STOOL UA Ketones Negative mg/dL Negative mg/dL 11/20/2018 [facility] URINE AND STOOL UA Protein 100 mg/dL Negative mg/dL 11/20/2018 [facility] URINE AND STOOL UA Nitrite Negative (11/20/18 12:27 AM) Negative 11/20/2018 [facility] URINE AND STOOL UA Blood Negative (11/20/18 12:27 AM) Negative 11/20/2018 [facility] URINE AND STOOL UA Bili Negative *NA* (11/20/18 12:27 AM) Negative 11/20/2018 [facility] URINE AND STOOL UA Leuk Est Negative (11/20/18 12:27 AM) Negative 11/20/2018 [facility] URINE AND STOOL UA WBC 1 /HPF 0 - 5 11/20/2018 [facility] URINE AND STOOL UA Glucose Negative mg/dL Negative mg/dL 11/20/2018 [facility] URINE AND STOOL UA Mucus Few /LPF None Seen /LPF 11/20/2018 [facility] URINE AND STOOL UA Spec Grav 1.009 <=1.030 11/20/2018 [facility] URINE AND STOOL UA pH 5.5 5.0 - 8.0 11/20/2018 [facility] URINE AND STOOL UA Turbidity Clear (11/20/18 12:27 AM) Clear 11/20/2018 [facility] URINE AND STOOL UA Color Yellow *NA* (11/20/18 12:27 AM) Yellow 11/20/2018 [facility] Brain wo contrast CT Brain wo contrast CT EXAM: CT BRAIN WITHOUT CONTRAST DATE: 11/19/2018 9:44 PM TRANSISTOR TESTER INDICATION: - Preop eval. Previous strokes COMPARISON: 03/05/2018 TECHNIQUE: Routine axial images of the brain were obtained using a conventional ct scanner. Reformatted images in the sagittal and coronal plane were included. IV contrast: None. FINDINGS: There is no interval change in the extensive, bilateral, cerebellar infarcts involving the upper aspects of both hemispheres and inferolateral portion of the cerebellum on the left. Evidence of gliosis is also seen in the left thalamus. A left posterior cerebral artery territory infarct is also noted involving the junction of parietal and occipital lobes. The appearance of the remainder of the brain parenchyma is alsounchanged. Specifically, there has been no significant interval hemorrhage or development of hydrocephalus. Bilateral functional endoscopic sinus surgery changes are present with antrostomies and partial ethmoidectomies. Incidental imaging of the orbits, skull, and skull base also demonstrates no interval change. Endovascular coils are identified medial to the ramus of the mandible on the right. 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 CT examination of the remainder of the brain is also unchanged. 11/19/2018 - - Read by: Trevin Barnett MD Dictated Date/time: 11/19/18 22:59 Electronically Signed by: Trevin Barnett MD 11/19/18 23:04 FINAL REPORT [facility] SPECIAL CHEMISTRY Hgb A1C 5.9 % <=5.6 % 11/17/2018 [facility] Chest wo contrast CT Chest wo contrast CT EXAM: CT CHEST WITHOUT CONTRAST DATE: 11/17/2018 4:02 PM TRANSISTOR TESTER INDICATION: - preop COMPARISON: No prior CT chest available for comparison. PET/CT 12/08/2016. Renal cell carcinoma. TECHNIQUE: Volumetric CT of the chest is acquired without contrast. Axial, coronal and sagittal images are provided. IV contrast: None. DLP: 202.1 mGy-cm FINDINGS: There is a new ill-defined nodular opacity seen in the right upper lobe measuring 11 mm on image 51 of series 5. Left lower lobe groundglass nodule measures 12 mm on image 100, new from prior study. Additional new small patchy groundglass opacities are seen in the right lung, as example in the right lower lobe on image 130 ad right upper lobe on image 79. Similar new patchy opacities in the left lower lobe and lingula are seen on image 128. New bilateral trace pleural effusions. Airways are patent. No pneumothorax. There are no enlarged intrathoracic lymph nodes. Calcified left hilar nodes is most consistent with sequela of prior granulomatous disease. The heart is normal in size. The aorta and main pulmonary artery have normal caliber. Moderate atherosclerotic changes seen in the aorta and coronary arteries. No pericardial effusion. Status post left nephrectomy. Small hypodense exophytic right renal lesions measuring up to 6 mm are seen on image 222 and 224 of series 5, unchanged. Stable left hepatic hypodense focal lesion measuring 1.4 cm in image 164. Atherosclerotic changes are seen the upper abdomen. Bilateral gynecomastia. Stable tiny sclerotic foci at T12 vertebral body series 2017 may represent bone islands. No acute osseous lesions noted. Degenerative changes in the thoracolumbar spine. IMPRESSION: 1. New ill-defined nodular opacity in the right upper lobe may represent infectious/inflammatory etiology or metastasis. CT follow-up in 3 months is advised. 2. New left lower lobe groundglass nodule and a few small bilateral patchy groundglass opacities are likely of infectious/inflammatory etiology and can be reassessed on subsequent CT follow-up. 3. New bilateral trace pleural effusions. 4. Atherosclerotic changes seen the aorta and coronary arteries. 5. Status post left nephrectomy. 6. Suboptimal evaluation of stable small hypodense exophytic right renal lesions. 7. Stable left hepatic hypodense focal lesion, likely a cyst. 11/17/2018 - - Read by: Cammy Womack MD Dictated Date/time: 11/17/18 22:33 Electronically Signed by: Cammy Womack MD 11/17/18 22:49 FINAL REPORT [facility] CARDIAC ENZYMES BNP 422 pg/mL <=100 pg/mL 11/17/2018 [facility] CHEM PANEL Bili Total 0.4 mg/dL 0.2 - 1.3 11/17/2018 [facility] CHEM PANEL Albumin Lvl 2.6 g/dL 3.5 - 5.0 11/17/2018 [facility] CHEM PANEL Total Protein 6.1 g/dL 6.4 - 8.4 11/17/2018 [facility] CHEM PANEL Alk Phos 145 unit/L 39 - 136 11/17/2018 [facility] CHEM PANEL AST 54 unit/L 0 - 37 11/17/2018 [facility] CHEM PANEL ALT 46 unit/L 0 - 65 11/17/2018 [facility] CHEM PANEL B/C Ratio 17 6 - 25 11/17/2018 [facility] CHEM PANEL Globulin 3.5 g/dL 2.7 - 4.2 11/17/2018 [facility] CHEM PANEL A/G Ratio 0.7 0.7 - 1.6 11/17/2018 [facility] Chest 1view DX Chest 1view DX EXAM: XR CHEST 1 VIEW DATE: 11/17/2018 12:26 AM 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 IMPRESSION: 1. Stable cardiomediastinal silhouette. Atherosclerotic changes in the aortic knob. 2. Linear opacity in the left lower lung likely atelectatic, though superimposed infection cannot be excluded. Small nodular opacity overlying the right lower lung is not well seen on prior study. This may represent overlap of structures, although pulmonary nodules cannot be excluded. Correlation with CT advised. 3. No pleural effusions or pneumothorax. 4. Prominent pulmonary vasculature, unchanged. 11/17/2018 - - Read by: Cammy Womack MD Dictated Date/time: 11/17/18 07:50 Electronically Signed by: Cammy Womack MD 11/17/18 07:54 FINAL REPORT [facility] HEMATOLOGY INR 1.60 0.85 - 1.17 03/05/2018 [facility] HEMATOLOGY PT 19.2 s 12.0 - 14.7 03/05/2018 [facility] Brain/Neck CTA Brain/Neck CTA CT angiogram head. CT angiogram neck. HISTORY: Dizziness. Neck pain. COMPARISON: No prior studies available. TECHNIQUE: Prior to IV contrast administration, noncontrast CT head protocol performed. Following administration of IV contrast, CT angiogram protocol of the neck and CT angiogram protocol of the head were performed. Source images and reconstructions reviewed. This includes 3-D reconstructions. Patient administered Omnipaque 350, 100 mL IV. Any reported ICA stenoses indirectly reference the distal internal carotid diameter as the denominator for stenosis measurement, utilizing consensus panel criteria. DLP: 1424 mGy*cm FINDINGS: CT HEAD NONCONTRAST: Comparison with study performed the prior day. Generalized cerebral atrophy again noted. Moderate low-density changes compatible with chronic small vessel disease. 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 Physiologic basal ganglia calcifications present. Infarcts bilateral cerebellar hemispheres. No acute osseous of the malleus seen. Prior paranasal sinus surgery evident. Prior mastoid surgery suggested. Orbits and globes within normal limits. CTA NECK: Top of aortic arch and its branches unremarkable. Right brachiocephalic artery and bilateral subclavian arteries widely patent. Proximal and mid right CCA unremarkable. Although marked calcified and noncalcified plaque distal CCA extends into the proximal right ICA, no flow limiting stenoses identified. Resulting stenoses appearing less than 50%. Mid right ICA unremarkable. Moderate calcified plaque CCA bifurcations/proximal left ICA present, however only mild resulting stenoses present. Mid left ICA unremarkable. There is a very dominant right vertebral artery. Most of the right vertebral artery is unremarkable until its distal aspect with areas high-grade stenoses. This is seen at the base of the skull. Prominent calcified and noncalcified plaque present. The very distal right vertebral artery is widely patent. Left vertebral artery small although patent until distally where several areas of poor enhancement and visualization are suspicious for areas of marked stenosis. At the base of the skull the vessel is very poorly visualized and markedly diminished in size. The very distal aspect of the left vertebral artery is again small but patent. CTA HEAD: Marked atherosclerotic calcifications distal bilateral ICA evident however no definite flow-limiting stenoses appreciated. Flow-limiting disease difficult to exclude. No evidence of significant flow-limiting disease involving the bilateral middle cerebral or anterior cerebral arteries. Anterior communicating artery not visualized. Basilar artery unremarkable. Left posterior cerebral artery unremarkable. Left posterior communicating artery not clearly seen. Persistent origin right LEGAL [employer]OR with prominent right posterior communicating artery. P1 segment right LEGAL [employer]OR not clearly seen. P2 segment unremarkable. No aneurysm or vascular malformation seen. Dural sinuses appear within normal limits. Lung apices clear. Superior mediastinum within normal limits. Thyroid appears small in size. No cervical adenopathy. Parapharyngeal/prevertebral soft tissues appear within normal limits. IMPRESSION: 1. Marked calcified and noncalcified plaque bilateral CCA/proximal ICA more prominent on the right without evidence of flow-limiting stenoses. 2. Very dominant right vertebral artery with high-grade stenoses at the skull base. 3. Small left vertebral artery demonstrates areas of suspected flow-limiting stenoses distal aspect. 4. Marked atherosclerotic calcific changes distal bilateral ICA with no definite flow-limiting stenoses. 5. Narrowing origin right MCA does not appear hemodynamically significant particularly on coronal reconstructions. 6. Persistent origin right LEGAL COL[employer]OR. 7. No acute findings on noncontrast CT head images. No significant interval change compare with study performed the prior day. SL: [id number] 03/05/2018 - - Read by: Teddy Valle MD Dictated Date/time: 03/05/18 17:20 Electronically Signed by: Teddy Valle MD 03/05/18 17:49 FINAL REPORT [facility] PANEL eGFR 51 mL/min/1.73m2 03/05/2018 Result Comment: The eGFR is calculated using the CKD-EPI formula. In most young, healthy individuals the eGFR will be >90 mL/min/1.73m2. The eGFR declines with age. An eGFR of 60-89 may be normal in some populations, particularly the elderly, for whom the CKD-EPI formula has not been extensively validated. Use of the eGFR is not recommended in the following populations: Individuals with unstable creatinine concentrations, including patients and those with serious co-morbid conditions. Patients with extremes in muscle mass or diet. The data above are obtained from the National Kidney Disease Education Program (NKDEP) which additionally recommends that when the eGFR is used in patients with extremes of body mass index for purposes of drug dosing, the eGFR should be multiplied by the estimated BMI. [facility] CHEM PANEL AST 17 unit/L 0 - 37 03/05/2018 [facility] CHEM PANEL Alk Phos 80 unit/L 39 - 136 03/05/2018 [facility] CHEM PANEL Globulin 2.5 g/dL 2.7 - 4.2 03/05/2018 [facility] CHEM PANEL ALT 15 unit/L 0 - 65 03/05/2018 [facility] CHEM PANEL A/G Ratio 0.9 0.7 - 1.6 03/05/2018 [facility] CHEM PANEL Bili Total 0.7 mg/dL 0.2 - 1.3 03/05/2018 [facility] CHEM PANEL Glucose Lvl 99 mg/dL 70 - 99 03/05/2018 [facility] CHEM PANEL Calcium Lvl 8.0 mg/dL 8.5 - 10.5 03/05/2018 [facility] CHEM PANEL AGAP 10.1 meq/L 10.0 - 20.0 03/05/2018 [facility] CHEM PANEL B/C Ratio 14 6 - 25 03/05/2018 [facility] CHEM PANEL CO2 29 meq/L 24 - 32 03/05/2018 [facility] CHEM PANEL Chloride Lvl 106 meq/L 95 - 109 03/05/2018 [facility] CHEM PANEL Sodium Lvl 141 meq/L 135 - 145 03/05/2018 [facility] CHEM PANEL Creatinine Lvl 1.31 mg/dL 0.50 - 1.40 03/05/2018 [facility] CHEM PANEL Potassium Lvl 4.1 meq/L 3.5 - 5.1 03/05/2018 [facility] CHEM PANEL BUN 18 mg/dL 7 - 22 03/05/2018 [facility] CHEM PANEL Albumin Lvl 2.3 g/dL 3.5 - 5.0 03/05/2018 [facility] CHEM PANEL Total Protein 4.8 g/dL 6.4 - 8.4 03/05/2018 [facility] HEMATOLOGY WBC 7.3 K/CMM 3.7 - 10.4 03/05/2018 [facility] RBC 3.83 M/CMM 4.70 - 6.10 03/05/2018 [facility] RDW 20.4 % 11.5 - 14.5 03/05/2018 [facility] Platelet 157 K/CMM 133 - 450 03/05/2018 [facility] MPV 8.1 fL 7.4 - 10.4 03/05/2018 [facility] Hgb 9.5 g/dL 14.0 - 18.0 03/05/2018 [facility] Hct 29.8 % 42.0 - 54.0 03/05/2018 [facility] MCH 24.9 pg 27.0 - 31.0 03/05/2018 [facility] MCHC 32.0 g/dL 32.0 - 36.0 03/05/2018 [facility] MCV 77.8 fL 80.0 - 94.0 03/05/2018 [facility] Monocytes # 0.6 K/CMM 0.0 - 0.8 03/05/2018 [facility] Microcyte 1+ *ABN* (03/05/18 4:42 AM) None Seen 03/05/2018 [facility] Segs 74.4 % 45.0 - 75.0 03/05/2018 [facility] Lymphocytes 16.5 % 20.0 - 40.0 03/05/2018 [facility] Basophils 0.3 % 0.0 - 1.0 03/05/2018 [facility] Eosinophils 0.3 % 0.0 - 4.0 03/05/2018 [facility] Monocytes 8.5 % 2.0 - 12.0 03/05/2018 [facility] RBC Morph See Note (03/05/18 4:42 AM) 03/05/2018 [facility] Plt Morph Normal (03/05/18 4:42 AM) 03/05/2018 [facility] Lymphocytes # 1.2 K/CMM 1.0 - 5.5 03/05/2018 [facility] Segs-Bands # 5.4 K/CMM 1.5 - 8.1 03/05/2018 [facility] Brain wo contrast MRI Brain wo contrast MRI Patient Name: OMKAR CASTILLO : 1935; Age: 82 years y/o Male MR: [id number] Study: Brain wo contrast MRI 03/04/2018 7:10 AM CDT Ordering Physician: Agustin Kimball MD Clinical Indication: New onset severe dizziness beginning yesterday while Patient was laying in his bed at home. Patient is CA Patient receiving PO and biweekly infsion meds. Patient also stated his BP meds make him dizzy.; Comparison: CT head dated 03/04/2018. TECHNIQUE: Multiplanar MRI of the brain is performed on a 1.5 Madiha magnet. Contrast: None. FINDINGS: BRAIN PARENCHYMA: No abnormal signal identified on diffusion-weighted imaging to suggest an acute infarction. Multiple small bilateral old cerebellar infarcts identified. There is an old medial and posterior left occipital lobe infarct. Patchy increased signal on T2-weighted images in the frontal white matter bilaterally, right occipital periventricular white matter and centrum semiovale bilaterally consistent with a small amount of small vessel occlusive change for age. No other abnormal areas of signal intensity identified about the brain. No significant extra-axial fluid collection, mass effect or shift. CEREBELLOPONTINE REGIONS AND SKULL BASE: The craniocervical junction, skull base and pituitary gland are unremarkable. Cerebellar pontine angles unremarkable bilaterally. VENTRICLES: The ventricles and sulci are enlarged for the patient's age but not out of proportion to each other. Findings are consistent with changes of cerebral atrophy. VESSELS: The left vertebral artery is dominant to the right vertebral artery. Otherwise normal flow-voids identified in the major vessels at the base of the brain. ORBITS, VISUALIZED PARANASAL SINUSES AND MASTOIDS: Small amount of left ethmoid sinus disease. Bilateral mastoid air cell disease. Prior bilateral nasoantral windows. IMPRESSION: 1. 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 2. 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 3. Small amount of small vessel occlusive change for age. 4. Cerebral atrophy. 5. Small amount of left ethmoid sinus disease. 6. Bilateral mastoid air cell disease. SL: ROBLES 03/04/2018 - - Read by: Junaid Gonsalves MD Dictated Date/time: 03/04/18 13:04 Electronically Signed by: Junaid Gonsalves MD 03/04/18 13:17 FINAL REPORT [facility] Brain wo contrast MRA Brain wo contrast MRA Patient Name: OMKAR CASTILLO : 1935; Age: 82 years y/o Male MR: [id number] Study: Brain wo contrast MRA 03/04/2018 7:10 AM CDT Ordering Physician: Agustin Kimball MD Clinical Indication: New onset severe dizziness beginning yesterday while Patient was laying in his bed at home. Patient is [place] Patient receiving PO and biweekly infsion meds. Patient also stated his BP meds make him dizzy.; Comparison: CT head dated 03/04/2018. Technique: Magnetic resonance angiography of the [place] of [place] was performed without contrast. 3D reconstructed images were created. FINDINGS: The right vertebral artery is small in size. There is a narrowed appearance to the left vertebral artery at the level of the craniocervical junction with marked focal stenosis to the left vertebral artery at the level of the medulla. Then there is mild dilatation of the remainder of the left distal vertebral artery. There is origin to the right posterior cerebral artery. Flow is not seen within the left posterior communicating artery. There is focal stenosis at the origin of the right middle cerebral artery and origin of the A1 segment of the right anterior cerebral artery. No other evidence for intracranial stenosis or intracranial aneurysm. SL: [id number] 03/04/2018 - - Read by: Junaid Gonsalves MD Dictated Date/time: 03/04/18 13:19 Electronically Signed by: Junaid Gonsalves MD 03/04/18 13:25 FINAL REPORT [facility] CARDIAC ENZYMES CK MB Index 2.8 0.0 - 2.5 03/04/2018 [facility] CARDIAC ENZYMES Troponin-I null 0.00 - 0.40 03/04/2018 [facility] CARDIAC ENZYMES Total CK 71 unit/L 12 - 191 03/04/2018 [facility] CARDIAC ENZYMES CK MB 2.0 ng/mL 0.5 - 3.6 03/04/2018 [facility] CARDIAC ENZYMES BNP 167 pg/mL <=100 pg/mL 03/04/2018 [facility] CHEM PANEL eGFR 74 mL/min/1.73m2 03/04/2018 Result Comment: The eGFR is calculated using the CKD-EPI formula. In most young, healthy individuals the eGFR will be >90 mL/min/1.73m2. The eGFR declines with age. An eGFR of 60-89 may be normal in some populations, particularly the elderly, for whom the CKD-EPI formula has not been extensively validated. Use of the eGFR is not recommended in the following populations: Individuals with unstable creatinine concentrations, including patients and those with serious co-morbid conditions. Patients with extremes in muscle mass or diet. The data above are obtained from the National Kidney Disease Education Program (NKDEP) which additionally recommends that when the eGFR is used in patients with extremes of body mass index for purposes of drug dosing, the eGFR should be multiplied by the estimated BMI. [facility] CHEM PANEL AGAP 9.7 meq/L 10.0 - 20.0 03/04/2018 [facility] CHEM PANEL B/C Ratio 19 6 - 25 03/04/2018 [facility] CHEM PANEL Globulin 2.9 g/dL 2.7 - 4.2 03/04/2018 [facility] CHEM PANEL A/G Ratio 0.9 0.7 - 1.6 03/04/2018 [facility] CHEM PANEL ALT 19 unit/L 0 - 65 03/04/2018 [facility] CHEM PANEL Calcium Lvl 7.9 mg/dL 8.5 - 10.5 03/04/2018 [facility] CHEM PANEL Albumin Lvl 2.7 g/dL 3.5 - 5.0 03/04/2018 [facility] CHEM PANEL CO2 26 meq/L 24 - 32 03/04/2018 [facility] CHEM PANEL Total Protein 5.6 g/dL 6.4 - 8.4 03/04/2018 [facility] CHEM PANEL Alk Phos 91 unit/L 39 - 136 03/04/2018 [facility] CHEM PANEL Bili Total 0.4 mg/dL 0.2 - 1.3 03/04/2018 [facility] CHEM PANEL AST 22 unit/L 0 - 37 03/04/2018 [facility] CHEM PANEL Chloride Lvl 108 meq/L 95 - 109 03/04/2018 [facility] CHEM PANEL Creatinine Lvl 0.96 mg/dL 0.50 - 1.40 03/04/2018 [facility] CHEM PANEL Potassium Lvl 3.7 meq/L 3.5 - 5.1 03/04/2018 [facility] CHEM PANEL BUN 18 mg/dL 7 - 22 03/04/2018 [facility] CHEM PANEL Sodium Lvl 140 meq/L 135 - 145 03/04/2018 [facility] CHEM PANEL Glucose Lvl 95 mg/dL 70 - 99 03/04/2018 [facility] Microcyte 1+ *ABN* (03/04/18 1:33 AM) None Seen 03/04/2018 [facility] HEMATOLOGY Segs 66.6 % 45.0 - 75.0 03/04/2018 [facility] Lymphocytes 24.7 % 20.0 - 40.0 03/04/2018 [facility] Monocytes 7.9 % 2.0 - 12.0 03/04/2018 [facility] HEMATOLOGY Basophils 0.5 % 0.0 - 1.0 03/04/2018 [facility] Eosinophils 0.3 % 0.0 - 4.0 03/04/2018 [facility] Segs-Bands # 4.7 K/CMM 1.5 - 8.1 03/04/2018 [facility] Monocytes # 0.6 K/CMM 0.0 - 0.8 03/04/2018 [facility] Lymphocytes # 1.7 K/CMM 1.0 - 5.5 03/04/2018 [facility] PTT 21.1 s 22.9 - 35.8 03/04/2018 [facility] INR 1.53 0.85 - 1.17 03/04/2018 [facility] PT 18.5 s 12.0 - 14.7 03/04/2018 [facility] Hgb 10.2 g/dL 14.0 - 18.0 03/04/2018 [facility] MCV 77.1 fL 80.0 - 94.0 03/04/2018 [facility] Hct 32.4 % 42.0 - 54.0 03/04/2018 [facility] MCH 24.2 pg 27.0 - 31.0 03/04/2018 [facility] WBC 7.1 K/CMM 3.7 - 10.4 03/04/2018 [facility] MCHC 31.4 g/dL 32.0 - 36.0 03/04/2018 [facility] RDW 20.9 % 11.5 - 14.5 03/04/2018 [facility] MPV 7.8 fL 7.4 - 10.4 03/04/2018 [facility] RBC 4.20 M/CMM 4.70 - 6.10 03/04/2018 [facility] Platelet 155 K/CMM 133 - 450 03/04/2018 [facility] LIPIDS CHD Risk 4.22 4.00 - 7.30 03/04/2018 [facility] LIPIDS VLDL 43 03/04/2018 [facility] LIPIDS LDL (Calculated) 144 mg/dL <=99 mg/dL 03/04/2018 [facility] LIPIDS HDL 58 mg/dL >=61 mg/dL 03/04/2018 [facility] LIPIDS Chol 245 mg/dL <=199 mg/dL 03/04/2018 [facility] LIPIDS Trig 217 mg/dL <=149 mg/dL 03/04/2018 [facility] SPECIAL CHEMISTRY Hgb A1C 6.4 % <=5.6 % 03/04/2018 [facility] URINE AND STOOL UA Color Ltyellow 03/04/2018 [facility] URINE AND STOOL UA Urobilinogen <=1.0 mg/dL 0.1 - 1.0 03/04/2018 [facility] URINE AND STOOL UA Blood Small *ABN* (03/04/18 1:33 AM) Negative 03/04/2018 [facility] URINE AND STOOL UA Bili Negative *NA* (03/04/18 1:33 AM) Negative 03/04/2018 [facility] URINE AND STOOL UA Ketones Negative mg/dL Negative mg/dL 03/04/2018 [facility] URINE AND STOOL UA Glucose Negative mg/dL Negative mg/dL 03/04/2018 [facility] URINE AND STOOL UA Leuk Est Negative (03/04/18 1:33 AM) Negative 03/04/2018 [facility] URINE AND STOOL UA Nitrite Negative (03/04/18 1:33 AM) Negative 03/04/2018 [facility] URINE AND STOOL UA WBC null 0 - 5 03/04/2018 [facility] URINE AND STOOL UA Hyal Cast 3 /LPF 0 - 2 03/04/2018 [facility] URINE AND STOOL UA RBC 1 /HPF 0 - 2 03/04/2018 [facility] URINE AND STOOL UA Sq Epi Occasional /LPF Few /LPF 03/04/2018 [facility] URINE AND STOOL UA Protein 100 mg/dL Negative mg/dL 03/04/2018 [facility] URINE AND STOOL UA pH 6.0 5.0 - 8.0 03/04/2018 [facility] URINE AND STOOL UA Spec Grav 1.010 <=1.030 03/04/2018 [facility] URINE AND STOOL UA Turbidity Clear (03/04/18 1:33 AM) Clear 03/04/2018 [facility] Chest 1view DX Chest 1view DX Clinical Indication: Altered mental status. Comparison: Chest radiograph 10/12/2012. FINDINGS: The frontal chest radiograph shows normal lung volumes without interstitial or airspace opacities, pleural effusions or pneumothorax. The cardiomediastinal contours are normal for the age of the patient with aortic tortuosity. There are degenerative changes in the spine. IMPRESSION: No chest radiographic evidence of acute cardiopulmonary disease. SL: VICENTE 03/04/2018 - - Read by: Stephan Combs MD Dictated Date/time: 03/04/18 01:59 Electronically Signed by: Stephan Combs MD 03/04/18 02:00 FINAL REPORT [facility] Brain Stroke wo contrast CT Brain Stroke wo contrast CT EXAM: CT BRAIN WITHOUT CONTRAST DATE: 03/04/2018 12:36 AM CDT INDICATION: Dizziness. History of renal cell cancer. COMPARISON: 12/08/2016. TECHNIQUE: CT images were obtained from the foramen magnum to the vertex without intravenous contrast on a multidetector CT. Coronal and sagittal reconstructions were also provided for review. CT radiation dose DLP: 981.84 mGy-cm FINDINGS: No acute intracranial hemorrhage, midline shift, or mass effect is identified. Encephalomalacia is noted within the left occipital lobe, in a left posterior cerebral artery vascular distribution. Old infarcts are present within the cerebellar hemispheres bilaterally as well as the left thalamus. The ventricles and sulci are prominent, compatible with mild diffuse parenchymal volume loss. Mild chronic microangiopathic changes are noted. The patient is status post partial right mastoidectomy. Opacification of the residual mastoid air cells is noted bilaterally. Postsurgical changes are also noted within the paranasal sinuses, with multiple polypoid lesions visualized within the nasal cavity. Bilateral intraocular lens placement are visualized, otherwise the orbits are unremarkable. The calvarium and skull base are intact. Advanced atherosclerotic calcification of the carotid siphons and distal left vertebral artery is noted. Hyperdensity within the proximal basilar artery on series 2 image 11 is favored to represent artifact. Metallic density is noted adjacent to the right mandibular condyle. A nonspecific 13 mm soft tissue lesion within the right parietal scalp is redemonstrated, series 2 image 37. IMPRESSION: 1. No acute intracranial hemorrhage or mass effect. 2. Old infarcts within the bilateral cerebellar hemispheres, left occipital lobe, and left thalamus. 3. Mild chronic microangiopathic changes and diffuse parenchymal volume loss. 4. Multiple sinonasal polyps of uncertain etiology. ENT consultation as clinically indicated. Dr. Oliva was informed of these findings by telephone on 03/04/2018 at 0157 hours. SL: [id number] 03/04/2018 - - Read by: Junaid Christensen MD Dictated Date/time: 03/04/18 01:47 Electronically Signed by: Junaid Christensen MD 03/04/18 02:02 FINAL REPORT [facility] CHEM PANEL eGFR 47 mL/min/1.73m2 12/08/2016 Result Comment: The eGFR is calculated using the CKD-EPI formula. In most young, healthy individuals the eGFR will be >90 mL/min/1.73m2. The eGFR declines with age. An eGFR of 60-89 may be normal in some populations, particularly the elderly, for whom the CKD-EPI formula has not been extensively validated. Use of the eGFR is not recommended in the following populations: Individuals with unstable creatinine concentrations, including patients and those with serious co-morbid conditions. Patients with extremes in muscle mass or diet. The data above are obtained from the National Kidney Disease Education Program (NKDEP) which additionally recommends that when the eGFR is used in patients with extremes of body mass index for purposes of drug dosing, the eGFR should be multiplied by the estimated BMI. [facility] CHEM PANEL POC Creatinine 1.4 mg/dL 0.5 - 1.4 12/08/2016 [facility] Brain w/wo contrast MRI Brain w/wo contrast MRI MRI BRAIN WITH AND WITHOUT CONTRAST INDICATION: Renal cancer, evaluate for intracranial metastasis, Per pt hx of kidney cancer, and exam is for see if it has spread. 7.5cc [employer] Lot# [id number] COMPARISON: None DISCUSSION: There are generalized involutional changes of the brain and microangiopathic changes of the white matter. There is a chronic infarct of the parasagittal left parieto-occipital lobe. There are multiple chronic focal infarcts of the bilateral cerebellum. There is no evidence of acute vascular insults, space occupying lesions, hemorrhage, hydrocephalus, midline shift, or extra-axial fluid collections. No cortical-based, suprasellar, craniocervical, or enhancing intracranial abnormalities are seen. There is a 2.1 x 1.5 x 1.9 cm enhancing lobular mass of the right parietal scalp, involving the epidermis and subcutaneous fat. There is deep extension of the lesion, approaching the calvarium. The underlying calvarium is normal in signal, without evidence of invasion. No osseous metastasis is identified. IMPRESSION: 1. Chronic ischemic and age-related changes of the brain. No acute intracranial abnormalities or intracranial metastasis is visualized. 2. An indeterminate 2.1 cm enhancing nodule of the right parietal scalp. The nodule involves the skin surface. Correlation with direct visualization is needed. Malignancy cannot be excluded. SL:16 12/08/2016 - - Read by: Alban Sampson MD Dictated Date/time: 12/09/16 09:53 Electronically Signed by: Alban Sampson MD 12/09/16 10:12 FINAL REPORT [facility] PET CT Other Tumor PET CT Other Tumor Addendum: Case discussed with the oncology physician, Dr. Wood, on 12/03/2016 at 1615 hours. Upon further review, a solid mass is identified to arise from the lower pole of left kidney nearly 5.5 cm in the greatest cross-sectional diameter. The mass appears largely solid with mild increase in metabolic activity. Maximum SUV is 3.3 on the current study. No local lymphadenopathy is evident. Differential considerations include right renal adenocarcinoma. Biopsy of this mass is recommended for further evaluation. PET CT Other Tumor TECHNIQUE: 15 mCis of FDG were administered intravenously and a series of overlapping images were obtained from the skull base to the proximal thighs utilizing a PET/CT hybrid device. The CT was utilized for attenuation correction and anatomic correlation and not as an independent diagnostic study. UHM=782.17 mGy*cm , CTDIvol=5.98 mGy BLOOD GLUCOSE: 91 mg/dl COMPARISON: No priors available CLINICAL HISTORY: Restaging - C64.1 Malignant neoplasm of right kidney, except renal pelvis; excision of left scalp lesion suggesting metastatic RCC. FINDINGS: HEAD AND NECK: No abnormal activity is present in the left scalp. Findings consistent with resection of left scalp lesion. Hypermetabolic scalp lesion is noted in the right parietal subcutaneous tissues with increase in metabolic activity. Maximum SUV is 5.2 on image 26. CHEST: No abnormal activity is visualized. Mild cardiomegaly. Coronary artery calcifications. ABDOMEN AND PELVIS: Low-density lesion left lobe of liver without any increased metabolic activity likely represents a cyst. Changes related to left nephrectomy are evident. No residual or recurrent mass is present in the left renal fossa. No retroperitoneal lymphadenopathy is noted. SKELETON: No abnormal activity is visualized IMPRESSION: Hypermetabolic right parietal scalp lesion. Findings likely represent another focus of metastatic disease to the scalp. No other evidence for metastatic disease is noted on the current study. Postoperative changes related to left nephrectomy are evident. No PET/CT CT signs to suggest local recurrence. SL:[id number] 12/08/2016 - - Read by: Mann Elmore MD Dictated Date/time: 12/13/16 16:14 Electronically Signed by: Mann Elmore MD 12/13/16 16:18 FINAL REPORT - - Read by: Mann Elmore MD Dictated Date/time: 12/09/16 10:09 Electronically Signed by: Mann Elmore MD 12/09/16 10:42 FINAL REPORT [facility] Vital Signs Vital Sign Value Date Comments Source Systolic (mm Hg) 133 11/28/2018 [facility] Diastolic (mm Hg) 64 11/28/2018 [facility] Respitory Rate 18 11/28/2018 [facility] Systolic (mm Hg) 135 11/28/2018 [facility] Diastolic (mm Hg) 62 11/28/2018 [facility] Respitory Rate 16 11/28/2018 [facility] Systolic (mm Hg) 125 11/28/2018 [facility] Diastolic (mm Hg) 58 11/28/2018 [facility] Respitory Rate 18 11/28/2018 [facility] Temperature Oral (F) 96.7 F 11/28/2018 [facility] Temperature Oral (F) 97.3 F 11/28/2018 [facility] Temperature Oral (F) 98.8 F 11/28/2018 [facility] Weight 67.926 11/22/2018 [facility] Weight 67.784 11/21/2018 [facility] Weight 69.091 11/17/2018 [facility] BMI Calculated 21.24 11/17/2018 [facility] Height 180.34 cm 11/17/2018 [facility] Temperature Oral (F) 98.6 F 03/05/2018 [facility] Heart Rate 58 03/05/2018 [facility] Systolic (mm Hg) 142 03/05/2018 [facility] Diastolic (mm Hg) 68 03/05/2018 [facility] Temperature Oral (F) 98.2 F 03/05/2018 [facility] Heart Rate 52 03/05/2018 [facility] Systolic (mm Hg) 156 03/05/2018 [facility] Diastolic (mm Hg) 69 03/05/2018 [facility] Temperature Oral (F) 98.4 F 03/05/2018 [facility] Heart Rate 60 03/05/2018 [facility] Systolic (mm Hg) 153 03/05/2018 [facility] Diastolic (mm Hg) 74 03/05/2018 [facility] Respitory Rate 18 03/04/2018 [facility] Respitory Rate 18 03/04/2018 [facility] Respitory Rate 16 03/04/2018 [facility] Height 180.34 cm 03/04/2018 [facility] BMI Calculated 21.38 03/04/2018 [facility] Weight 69.545 03/04/2018 [facility] Encounters Location Location Details Encounter Type Encounter Number Reason For Visit Attending Provider ADM Date DC Date Status Source [facility] Outpatient [id number] Cristal Song 12/08/2016 12/09/2016 [facility] Observation [id number] Philipp Lewis Jr 03/04/2018 03/06/2018 [facility] Inpatient [id number] Art Holloway 11/17/2018 11/29/2018 [facility] Procedures Procedure Code Date Perfomer Comments Source
--- OUTSIDE RECORDS SUMMARY | 2018-12-22 11:54 | XMS REPORT | Summary of Care ---
Author Author [facility] Organization [facility] Address Unknown Phone Unavailable Encounter HQ Patricia(NORMAN) [id number] Date(s): 12/08/16 - 12/08/16 [facility] [id number] [place] [address]- Discharge Disposition: Home or Self Care Attending Physician: Cristal Song MD Referring Physician: Cristal Song MD Vital Signs No data available for this section Problem List Condition Effective Dates Status Health Status Informant Asthma(Confirmed) Resolved Heart Resolved attack(Confirmed) Hypertension(Confirm Resolved ed) Stroke(Confirmed) Resolved Allergies, Adverse Reactions, Alerts Substance Reaction Severity Status aspirin Active Vicodin Active Medications No data available for this section Results CHEM PANEL Most recent to 1 oldest [Reference Range]: eGFR 47 mL/min/1.73m2 1 *NA* (12/08/16 2:59 PM) POC Creatinine 1.4 mg/dL [0.5-1.4 mg/dL] (12/08/16 2:59 PM) 1Result Comment: The eGFR is calculated using the [...] from the National Kidney Disease Education Program ( NKDEP) which additionally recommends that when the eGFR is used in patients with extremes of body mass index for purposes of drug dosing, the eGFR should be mul tiplied by the estimated BMI. Immunizations No data available for this section Procedures No data available for this section Social History No data available for this section Assessment and Plan No data available for this section
--- OUTSIDE RECORDS SUMMARY | 2018-12-22 11:54 | XMS REPORT | Summary of Care ---
Author Author [facility] Organization [facility] Address Unknown Phone Unavailable Encounter YONATHAN Gomez(NORMAN) [id number] Date(s): 03/04/18 - 03/05/18 [facility] [id number] [place] [address]- [phone] Discharge Disposition: Home or Self Care Attending Physician: Philipp Avalos MD Admitting Physician: Philipp Avalos MD Vital Signs 1 2 3 Most recent to oldest [Reference Range]: 180.34 cm (03/04/18 4:26 AM) Height 98.6 DegF (03/05/18 3:38 PM) 98.2 DegF (03/05/18 11:20 AM) 98.4 DegF (03/05/18 8:23 AM) Temperature Oral [96.4-99.1 DegF] 142/68 mmHg *HI* (03/05/18 3:38 PM) 156/69 mmHg *HI* (03/05/18 11:20 AM) 153/74 mmHg *HI* (03/05/18 8:23 AM) Blood Pressure [90-140/60-90 mmHg] 18 BRMIN (03/04/18 6:23 PM) 18 BRMIN (03/04/18 3:42 PM) 16 BRMIN (03/04/18 12:35 PM) Respiratory Rate [14-20 BRMIN] 58 bpm *LOW* (03/05/18 3:38 PM) 52 bpm *LOW* (03/05/18 11:20 AM) 60 bpm (03/05/18 8:23 AM) Peripheral Pulse Rate [60-100 bpm] 69.545 kg (03/04/18 4:26 AM) Weight 21.38 m2 (03/04/18 4:26 AM) Body Mass Index Problem List Condition Effective Dates Status Health Status Informant Asthma(Confirmed) Resolved Heart Resolved attack(Confirmed) Hypertension(Confirm Resolved ed) Stroke(Confirmed) Resolved Allergies, Adverse Reactions, Alerts Substance Reaction Severity Status aspirin Active Vicodin Active Medications Advair Diskus 250 mcg-50 mcg inhalation powder 1 puff, INHALATION, BID, 0 Refill(s) Start Date: 03/04/18 Status: Ordered Advair Diskus 250 mcg-50 mcg inhalation powder 1 puff, Route: INHALATION, Drug Form: AERO, Dosing Weight 69.545, kg, BID, Start date: 03/04/18 9:00:00 CDT, Duration: 30 day, Stop date: 04/02/18 17:00:00 CDT Start Date: 03/04/18 Stop Date: 03/04/18 Status: Deleted amLODIPine 5 mg, PO, BID, 0 Refill(s) Start Date: 03/04/18 Status: Ordered amLODIPine 5 mg, 1 tab, Route: PO, Drug form: TAB, BID, Dosing Weight 69.545, kg, Start syeda e: 03/04/18 9:00:00 CDT, Duration: 30 day, Stop date: 04/02/18 17:00:00 CDT Notes: (Same as: Norvasc) Start Date: 03/04/18 Stop Date: 03/05/18 Status: Discontinued atorvastatin 80 mg, 2 tab, Route: PO, Drug form: TAB, Bedtime, Dosing Weight 69.545, kg, Star t date: 03/05/18 21:00:00 CDT, Duration: 30 day, Stop date: 04/03/18 21:00:00 CD T Notes: (Same as: Lipitor) Start Date: 03/05/18 Stop Date: 03/05/18 Status: Discontinued atorvastatin 40 mg, 1 tab, Route: PO, Drug form: TAB, Bedtime, Dosing Weight 69.545, kg, Star t date: 03/04/18 21:00:00 CDT, Duration: 30 day, Stop date: 04/02/18 21:00:00 CD T Notes: (Same as: Lipitor) Start Date: 03/04/18 Stop Date: 03/05/18 Status: Discontinued budesonide-formoterol 2 puff, Route: INHALER, Drug Form: AERO/A, BID, Start date: 03/04/18 9:00:00 CDT , Duration: 30 day, Stop date: 04/02/18 17:00:00 CDT Notes: (Same as: Symbicort)WASTE: Aerosol - Return to Pharmacy Start Date: 03/04/18 Stop Date: 03/05/18 Status: Discontinued Dextrose 50% Syringe 25 gm, 50 mL, Route: IVP, Drug Form: INJ, Dosing Weight 69.545, kg, PRN, PRN Blo od Glucose Results, Start date: 03/04/18 7:46:00 CDT, Duration: 30 day, Stop syeda e: 04/03/18 7:45:00 CDT Start Date: 03/04/18 Stop Date: 03/05/18 Status: Discontinued Dextrose 50% Syringe 12.5 gm, 25 mL, Route: IVP, Drug Form: INJ, Dosing Weight 69.545, kg, PRN, PRN B lood Glucose Results, Start date: 03/04/18 7:46:00 CDT, Duration: 30 day, Stop d ate: 04/03/18 7:45:00 CDT Start Date: 03/04/18 Stop Date: 03/05/18 Status: Discontinued glucagon 1 mg, Route: IM, Drug form: PDR/INJ, PRN, Dosing Weight 69.545, kg, PRN Blood Gl ucose Results, Start date: 03/04/18 7:46:00 CDT, Duration: 30 day, Stop date: 7:45:00 CDT Start Date: 03/04/18 Stop Date: 03/05/18 Status: Discontinued hydrALAZINE 10 mg, 0.5 mL, Route: IV, Drug form: INJ, Q3H, Dosing Weight 69.545, kg, PRN Oth er -See Comment, Start date: 03/04/18 13:16:00 CDT, Duration: 30 day, Stop date: 04/03/18 13:15:00 CDT, SBP>160 mmHg Notes: (Same as: Apresoline)Push over 5 minutes Start Date: 03/04/18 Stop Date: 03/05/18 Status: Discontinued hydrochlorothiazide 25 mg, PO, Daily, 0 Refill(s) Start Date: 03/04/18 Status: Ordered hydrochlorothiazide 25 mg, 1 tab, Route: PO, Drug form: TAB, Daily, Dosing Weight 69.545, kg, Start date: 03/04/18 9:00:00 CDT, Duration: 30 day, Stop date: 04/02/18 9:00:00 CDT Notes: (Same as: Hydrodiuril) With food. Start Date: 03/04/18 Stop Date: 03/05/18 Status: Discontinued insulin lispro 2 unit, 0.02 mL, Route: SUB-Q, Drug form: SOLN, TID-Before Meals, Dosing Weight 69.545, kg, PRN Blood Glucose Results, Start date: 03/04/18 7:46:00 CDT, Duratio n: 30 day, Stop date: 04/03/18 7:45:00 CDT Notes: (Same as: Humalog ) Roll in palms of hands gently; Do not shake `vigorou sly. "Single Patient Use Only " WASTE: F/P - Black; E - [address] [address] able for 28 days at room temperature.Expires in days from Da te Start Date: 03/04/18 Stop Date: 03/05/18 Status: Discontinued insulin lispro 3 unit, 0.03 mL, Route: SUB-Q, Drug form: SOLN, TID-Before Meals, Dosing Weight 69.545, kg, PRN Blood Glucose Results, Start date: 03/04/18 7:46:00 CDT, Duratio n: 30 day, Stop date: 04/03/18 7:45:00 CDT Notes: (Same as: Humalog ) Roll in palms of hands gently; Do not shake `vigorou sly. "Single Patient Use Only " WASTE: F/P - Black; E - [facility] [address] able for 28 days at room temperature.Expires in days from Da te Start Date: 03/04/18 Stop Date: 03/05/18 Status: Discontinued insulin lispro 1 unit, 0.01 mL, Route: SUB-Q, Drug form: SOLN, TID-Before Meals, Dosing Weight 69.545, kg, PRN Blood Glucose Results, Start date: 03/04/18 7:46:00 CDT, Duratio n: 30 day, Stop date: 04/03/18 7:45:00 CDT Notes: (Same as: Humalog ) Roll in palms of hands gently; Do not shake `vigorou sly. "Single Patient Use Only " WASTE: F/P - Black; E - [facility] [address] able for 28 days at room temperature.Expires in days from Da te Start Date: 03/04/18 Stop Date: 03/05/18 Status: Discontinued insulin lispro 5 unit, 0.05 mL, Route: SUB-Q, Drug form: SOLN, TID-Before Meals, Dosing Weight 69.545, kg, PRN Blood Glucose Results, Start date: 03/04/18 7:46:00 CDT, Duratio n: 30 day, Stop date: 04/03/18 7:45:00 CDT Notes: (Same as: Humalog ) Roll in palms of hands gently; Do not shake `vigorou sly. "Single Patient Use Only " WASTE: F/P - Black; E - [facility] [address] able for 28 days at room temperature.Expires in days from Da te Start Date: 03/04/18 Stop Date: 03/05/18 Status: Discontinued insulin lispro 4 unit, 0.04 mL, Route: SUB-Q, Drug form: SOLN, TID-Before Meals, Dosing Weight 69.545, kg, PRN Blood Glucose Results, Start date: 03/04/18 7:46:00 CDT, Duratio n: 30 day, Stop date: 04/03/18 7:45:00 CDT Notes: (Same as: Humalog ) Roll in palms of hands gently; Do not shake `vigorou sly. "Single Patient Use Only " WASTE: F/P - Black; E - [facility] [address] able for 28 days at room temperature.Expires in days from Da te Start Date: 03/04/18 Stop Date: 03/05/18 Status: Discontinued levothyroxine 25 microgram, PO, Daily, 0 Refill(s) Start Date: 03/04/18 Status: Ordered levothyroxine 25 microgram, 1 tab, Route: PO, Drug form: TAB, Daily, Dosing Weight 69.545, kg, Start date: 03/04/18 9:00:00 CDT, Duration: 30 day, Stop date: 04/02/18 9:00:00 CDT Notes: Take 1 hour before or 2 hours after meal; Enteral feeds may interefere wi th the absorption of this medication. (Same as:Levothroid) Start Date: 03/04/18 Stop Date: 03/05/18 Status: Discontinued meclizine 25 mg, Route: PO, Drug form: TAB, ONCE, Dosing Weight 77.727, kg, Priority: STAT , Start date: 03/04/18 2:42:00 CDT, Stop date: 03/04/18 2:42:00 CDT Start Date: 03/04/18 Stop Date: 03/04/18 Status: Completed metoprolol tartrate 25 mg, 1 tab, Route: PO, Drug form: TAB, BID, Dosing Weight 69.545, kg, Start da te: 03/04/18 9:00:00 CDT, Duration: 30 day, Stop date: 04/02/18 17:00:00 CDT Notes: (Same as: Lopressor) Start Date: 03/04/18 Stop Date: 03/05/18 Status: Discontinued metoprolol tartrate 25 mg, PO, BID, 0 Refill(s) Start Date: 03/04/18 Status: Ordered non-formulary 80 mg=, PO, Daily, Take 2 capsules (80mg) by mouth every morning. Take on a empt y stomach at least 1 hour before or 2 hours after breakfast or lunch, Refill(s) 0 Start Date: 03/04/18 Status: Ordered omeprazole 40 mg, Route: PO, Drug form: DRC, Daily, Dosing Weight 69.545, kg, Start date: 0 03/04/18 9:00:00 CDT, Duration: 30 day, Stop date: 04/02/18 9:00:00 CDT Start Date: 03/04/18 Stop Date: 03/04/18 Status: Deleted omeprazole 40 mg oral delayed release capsule 40 mg=1 cap, PO, Daily, 0 Refill(s) Start Date: 03/04/18 Status: Ordered Omnipaque 350 75 ml, Route: IV, Drug Form: SOLN, Dosing Weight 69.545, kg, ONCE, Start date: 0 03/05/18 12:29:00 CDT, Stop date: 03/05/18 12:29:00 CDT Notes: (same as:Omnipaque 350).WASTE: F/P - Black; E - Municipal Trash Bin Start Date: 03/05/18 Stop Date: 03/05/18 Status: Completed predniSONE 5 mg, PO, Daily, Quantity sufficient, 0 Refill(s) Start Date: 03/04/18 Status: Ordered predniSONE 5 mg, 5 mL, Route: PO, Drug form: SOLN, Daily, Dosing Weight 69.545, kg, Start d ate: 03/04/18 9:00:00 CDT, Duration: 30 day, Stop date: 04/02/18 9:00:00 CDT Notes: (Same as: Liquid Pred) Take with food. Start Date: 03/04/18 Stop Date: 03/04/18 Status: Deleted predniSONE 5 mg, 2 tab, Route: PO, Drug form: TAB, Daily, Start date: 03/04/18 9:00:00 CDT, Duration: 30 day, Stop date: 04/02/18 9:00:00 CDT Notes: Take with food. Start Date: 03/04/18 Stop Date: 03/05/18 Status: Discontinued Protonix 40 mg, 1 tab, Route: PO, Drug form: ECTAB, Q12H, Start date: 03/04/18 9:00:00 CD T, Duration: 30 day, Stop date: 04/02/18 21:00:00 CDT Notes: Tablet should not be chewed or crushed.(Same as: Protonix) Start Date: 03/04/18 Stop Date: 03/05/18 Status: Discontinued Saline Flush 0.9% 10 ml, Route: IVP, Drug Form: INJ, Dosing Weight 69.545, kg, Q12H, Start date: 0 03/04/18 9:00:00 CDT, Duration: 30 day, Stop date: 04/02/18 21:00:00 CDT Notes: (Same as: BD Posiflush) Start Date: 03/04/18 Stop Date: 03/05/18 Status: Discontinued Saline Flush 0.9% 10 ml, Route: IVP, Drug Form: INJ, Dosing Weight 69.545, kg, PRN, PRN Line Flush , Start date: 03/04/18 7:10:00 CDT, Duration: 30 day, Stop date: 04/03/18 7:09:0 0 CDT Notes: (Same as: BD Posiflush) Start Date: 03/04/18 Stop Date: 03/05/18 Status: Discontinued Saline Flush 0.9% 10 mL, Route: IVP, Drug Form: INJ, Dosing Weight 77.727, kg, PRN, PRN Line Flush , Start date: 03/04/18 0:56:00 CDT, Duration: 30 day, Stop date: 04/03/18 0:55:0 0 CDT Notes: (Same as: BD Posiflush) Start Date: 03/04/18 Stop Date: 03/05/18 Status: Discontinued valsartan 80 mg, PO, Daily, Patient Started on this med Monday. Dizziness started after taking this medication pre patient and spouse, 0 Refill(s) Start Date: 03/04/18 Stop Date: 03/04/18 Status: Discontinued warfarin 3 mg, 3 tab, Route: PO, Drug form: TAB, Q-Sa and Turcios, Dosing Weight 69.545, kg, S tart date: 03/04/18 9:00:00 CDT, Stop date: 03/31/18 20:00:00 CDT Notes: Nurse to ensure documentation of patient education per anticoagulation po licy.Avoid large intake of vitamin-K containing foods diet.(Same As: Coumadin)[place] MINDY: F/P - P Waste Black; E - P Waste Black Start Date: 03/04/18 Stop Date: 03/05/18 Status: Discontinued warfarin 4 mg, 2 tab, Route: PO, Drug form: TAB, Q-Tu and Th, Dosing Weight 69.545, kg, S tart date: 03/06/18 9:00:00 CDT, Duration: 30 day, Stop date: 04/03/18 9:00:00 C DT Notes: Nurse to ensure documentation of patient education per anticoagulation po licy.Avoid large intake of vitamin-K containing foods diet.(Same As: Coumadin)[place] MINDY: F/P - P Waste Black; E - P Waste Black Start Date: 03/06/18 Stop Date: 03/05/18 Status: Canceled warfarin 4 mg, 2 tab, Route: PO, Drug form: TAB, Q-M-W-F, Dosing Weight 69.545, kg, Start date: 03/05/18 9:00:00 CDT, Duration: 30 day, Stop date: 04/02/18 9:00:00 CDT Notes: Nurse to ensure documentation of patient education per anticoagulation po licy.Avoid large intake of vitamin-K containing foods diet.(Same As: Coumadin)[place] MINDY: F/P - P Waste Black; E - P Waste Black Start Date: 03/05/18 Stop Date: 03/05/18 Status: Discontinued warfarin 3 mg, PO, Daily, takes 3mg Monday and Monday, 0 Refill(s) Start Date: 03/04/18 Status: Ordered warfarin 4 mg, PO, Daily, Takes 4mg Monday-Monday, 0 Refill(s) Start Date: 03/04/18 Status: Ordered Results ELECTROLYTES Most recent to 1 2 oldest [Reference Range]: Sodium Lvl [135-145 141 mEq/L 140 mEq/L mEq/L] (03/05/18 4:42 AM) (03/04/18 1:33 AM) Potassium Lvl 4.1 mEq/L 3.7 mEq/L [3.5-5.1 mEq/L] (03/05/18 4:42 AM) (03/04/18 1:33 AM) Chloride Lvl [95-109 106 mEq/L 108 mEq/L mEq/L] (03/05/18 4:42 AM) (03/04/18 1:33 AM) CO2 [24-32 mEq/L] 29 mEq/L 26 mEq/L (03/05/18 4:42 AM) (03/04/18 1:33 AM) AGAP [10.0-20.0 10.1 mEq/L 9.7 mEq/L mEq/L] (03/05/18 4:42 AM) *LOW* (03/04/18 1:33 AM) CHEM PANEL Most recent to 1 2 oldest [Reference Range]: Creatinine Lvl 1.31 mg/dL 0.96 mg/dL [0.50-1.40 mg/dL] (03/05/18 4:42 AM) (03/04/18 1:33 AM) eGFR 51 mL/min/1.73m2 1 74 mL/min/1.73m2 2 *NA* *NA* (03/05/18 4:42 AM) (03/04/18 1:33 AM) BUN [7-22 mg/dL] 18 mg/dL 18 mg/dL (03/05/18 4:42 AM) (03/04/18 1:33 AM) B/C Ratio [6-25] 14 19 (03/05/18 4:42 AM) (03/04/18 1:33 AM) Glucose Lvl [70-99 99 mg/dL 95 mg/dL mg/dL] (03/05/18 4:42 AM) (03/04/18 1:33 AM) Total Protein 4.8 g/dL 5.6 g/dL [6.4-8.4 g/dL] *LOW* *LOW* (03/05/18 4:42 AM) (03/04/18 1:33 AM) Albumin Lvl [3.5-5.0 2.3 g/dL 2.7 g/dL g/dL] *LOW* *LOW* (03/05/18 4:42 AM) (03/04/18 1:33 AM) Globulin [2.7-4.2 2.5 g/dL 2.9 g/dL g/dL] *LOW* (03/04/18 1:33 AM) (03/05/18 4:42 AM) A/G Ratio [0.7-1.6] 0.9 0.9 (03/05/18 4:42 AM) (03/04/18 1:33 AM) Calcium Lvl 8.0 mg/dL 7.9 mg/dL [8.5-10.5 mg/dL] *LOW* *LOW* (03/05/18 4:42 AM) (03/04/18 1:33 AM) ALT [0-65 unit/L] 15 unit/L 19 unit/L (03/05/18 4:42 AM) (03/04/18 1:33 AM) AST [0-37 unit/L] 17 unit/L 22 unit/L (03/05/18 4:42 AM) (03/04/18 1:33 AM) Alk Phos [39-136 80 unit/L 91 unit/L unit/L] (03/05/18 4:42 AM) (03/04/18 1:33 AM) Bili Total [0.2-1.3 0.7 mg/dL 0.4 mg/dL mg/dL] (03/05/18 4:42 AM) (03/04/18 1:33 AM) 1Result Comment: The eGFR is calculated using [...] be mul tiplied by the estimated BMI. 2Result Comment: The eGFR is calculated using the [...] be mul tiplied by the estimated BMI. CARDIAC ENZYMES Most recent to 1 2 oldest [Reference Range]: Total CK [12-191 71 unit/L unit/L] (03/04/18 1:33 AM) CK MB [0.5-3.6 2.0 ng/mL ng/mL] (03/04/18 1:33 AM) CK MB Index 2.8 [0.0-2.5] *HI* (03/04/18 1:33 AM) Troponin-I <0.02 ng/mL [0.00-0.40 ng/mL] (03/04/18 1:33 AM) BNP [<=100 pg/mL] 167 pg/mL *HI* (03/04/18 1:33 AM) LIPIDS Most recent to 1 oldest [Reference Range]: CHD Risk [4.00-7.30] 4.22 (03/04/18 1:33 AM) Chol [<=199 mg/dL] 245 mg/dL *HI* (03/04/18 1:33 AM) Trig [<=149 mg/dL] 217 mg/dL *HI* (03/04/18 1:33 AM) HDL [>=61 mg/dL] 58 mg/dL *LOW* (03/04/18 1:33 AM) LDL (Calculated) 144 mg/dL [<=99 mg/dL] *HI* (03/04/18 1:33 AM) VLDL 43 *NA* (03/04/18 1:33 AM) SPECIAL CHEMISTRY Most recent to 1 2 oldest [Reference Range]: Hgb A1C [<=5.6 %] 6.4 % *HI* (03/04/18 1:33 AM) URINE AND STOOL Most recent to 1 2 oldest [Reference Range]: UA Turbidity [Clear] Clear (03/04/18 1:33 AM) UA Color Ltyellow *NA* (03/04/18 1:33 AM) UA pH [5.0-8.0] 6.0 (03/04/18 1:33 AM) UA Spec Grav 1.010 [<=1.030] (03/04/18 1:33 AM) UA Glucose [Negative Negative mg/dL mg/dL] *NA* (5/6/18 1:33 AM) UA Blood [Negative] Small *ABN* (03/04/18 1:33 AM) UA Ketones [Negative Negative mg/dL mg/dL] *NA* (03/04/18 1:33 AM) UA Protein [Negative 100 mg/dL mg/dL] *ABN* (03/04/18 1:33 AM) UA Urobilinogen <=1.0 mg/dL [0.1-1.0 mg/dL] *NA* (03/04/18 1:33 AM) UA Bili [Negative] Negative *NA* (03/04/18 1:33 AM) UA Leuk Est Negative [Negative] (03/04/18 1:33 AM) UA Nitrite Negative [Negative] (03/04/18 1:33 AM) UA WBC [0-5 /HPF] <1 /HPF (03/04/18 1:33 AM) UA RBC [0-2 /HPF] 1 /HPF (03/04/18 1:33 AM) UA Sq Epi [Few /LPF] Occasional /LPF *NA* (03/04/18 1:33 AM) UA Hyal Cast [0-2 3 /LPF /LPF] *HI* (03/04/18 1:33 AM) HEMATOLOGY Most recent to 1 2 oldest [Reference Range]: WBC [3.7-10.4 K/CMM] 7.3 K/CMM 7.1 K/CMM (03/05/18 4:42 AM) (03/04/18 1:33 AM) RBC [4.70-6.10 3.83 M/CMM 4.20 M/CMM M/CMM] *LOW* *LOW* (03/05/18 4:42 AM) (03/04/18 1:33 AM) Hgb [14.0-18.0 g/dL] 9.5 g/dL 10.2 g/dL *LOW* *LOW* (03/05/18 4:42 AM) (03/04/18 1:33 AM) Hct [42.0-54.0 %] 29.8 % 32.4 % *LOW* *LOW* (03/05/18 4:42 AM) (03/04/18 1:33 AM) MCV [80.0-94.0 fL] 77.8 fL 77.1 fL *LOW* *LOW* (03/05/18 4:42 AM) (03/04/18 1:33 AM) MCH [27.0-31.0 pg] 24.9 pg 24.2 pg *LOW* *LOW* (03/05/18 4:42 AM) (03/04/18 1:33 AM) MCHC [32.0-36.0 32.0 g/dL 31.4 g/dL g/dL] (03/05/18 4:42 AM) *LOW* (03/04/18 1:33 AM) RDW [11.5-14.5 %] 20.4 % 20.9 % *HI* *HI* (03/05/18 4:42 AM) (03/04/18 1:33 AM) MPV [7.4-10.4 fL] 8.1 fL 7.8 fL (03/05/18 4:42 AM) (03/04/18 1:33 AM) Platelet [133-450 157 K/CMM 155 K/CMM K/CMM] (03/05/18 4:42 AM) (03/04/18 1:33 AM) Segs [45.0-75.0 %] 74.4 % 66.6 % (03/05/18 4:42 AM) (03/04/18 1:33 AM) Lymphocytes 16.5 % 24.7 % [20.0-40.0 %] *LOW* (03/04/18 1:33 AM) (03/05/18 4:42 AM) Monocytes [2.0-12.0 8.5 % 7.9 % %] (03/05/18 4:42 AM) (03/04/18 1:33 AM) Eosinophils [0.0-4.0 0.3 % 0.3 % %] (03/05/18 4:42 AM) (03/04/18 1:33 AM) Basophils [0.0-1.0 0.3 % 0.5 % %] (03/05/18 4:42 AM) (03/04/18 1:33 AM) Segs-Bands # 5.4 K/CMM 4.7 K/CMM [1.5-8.1 K/CMM] (03/05/18 4:42 AM) (03/04/18 1:33 AM) Lymphocytes # 1.2 K/CMM 1.7 K/CMM [1.0-5.5 K/CMM] (03/05/18 4:42 AM) (03/04/18 1:33 AM) Monocytes # [0.0-0.8 0.6 K/CMM 0.6 K/CMM K/CMM] (03/05/18 4:42 AM) (03/04/18 1:33 AM) RBC Morph See Note (03/05/18 4:42 AM) Microcyte [None 1+ 1+ Seen] *ABN* *ABN* (03/05/18 4:42 AM) (03/04/18 1:33 AM) Plt Morph Normal (03/05/18 4:42 AM) PT [12.0-14.7 19.2 seconds 18.5 seconds seconds] *HI* *HI* (03/05/18 12:55 PM) (03/04/18 1:33 AM) INR [0.85-1.17] 1.60 1.53 *HI* *HI* (03/05/18 12:55 PM) (03/04/18 1:33 AM) PTT [22.9-35.8 21.1 seconds seconds] *LOW* (03/04/18 1:33 AM) Immunizations No data available for this section Procedures No data available for this section Social History Social History Type Response Smoking Status Former smoker; Type: Cigarettes; Ready to change: No; Concerns about tobacco use in household: No; Exposure to Tobacco Smoke None; Cigarette Smoking Last 365 Days No; Reg Smoking Cessation Counseling No entered on: 03/04/18 Assessment and Plan Extracted from: Title: Clinical Document Author: Desean Olson MD Date: 03/05/18 Progress Note - Daily [facility] Completed: Monday, MARCH 05, 2018, 15:49 by Desean Olson MD RM: [address], [id number] [id number] (: 1935) [place] Attending: Philipp Avalos MDPhone: Service: Internal Medicine Reason for Admission: DIZZINESS Working DRG: Code status: None Specified=FULL CODECurrent diet: Isolation: No Isolation/Standard Precautions Allergies: Vicodin, aspirin SUBJECTIVE He is dizzy but he thinks it is better than when he came in - intermittent. no nausea, hearing changes or tinnitus. no weakness, unsteadiness, slurred speech. No vision changes. No fever, chest pain or shortness of breath OBJECTIVE 24hr Labs 03/05 1255 PT19.2 H INR1.60 H 03/05 1118 POC Performing LocatioSee Note Glucose POC96 03/05 0821 POC Performing LocatioSee Note Glucose POC94 03/05 0442 Sodium Ddu024 Potassium Lvl4.1 Chloride Wqc809 CO229 AGAP10.1 Glucose Lvl99 Creatinine Lvl1.31 BUN18 B/C Ratio14 Total Protein4.8 L Albumin Lvl2.3 L Globulin2.5 L A/G Ratio0.9 Calcium Lvl8.0 L ALT15 AST17 Alk Phos80 Bili Total0.7 eGFR51 WBC7.3 RBC3.83 L Hgb9.5 L Hct29.8 L MCV77.8 L MCH24.9 L MCHC32.0 RDW20.4 H Nalulcxo973 MPV8.1 Segs74.4 Monocytes8.5 Tvvitypdteo48.5 L Eosinophils0.3 Basophils0.3 Segs-Bands #5.4 Lymphocytes #1.2 Monocytes #0.6 RBC MorphSee Note Plt MorphNormal Microcyte1+ 03/04 2156 POC Performing LocatioSee Note Glucose MYC658 H 03/04 1640 POC Performing LocatioSee Note Glucose UPY949 H Lees still necessary (Yes/No): Line still necessary (Yes/No): VitalsTmp(F)[id number] 03/05 11:2098.648243/69--95--- 03/05 08:2398.707033/74--94--- 03/04 18:2397.720378/6618---100% 03/04 16:55----27324/78-------- 03/04 15:4297.127149/5111225--- 24 Hr Tmax: 98.4F (36.89c) at 03/05 08:23Vital Signs are the last 5 in the past 48 hours. DateWt(kg)Wt(lb)Ht(cm)Ht(in)Method 03/04 (initial) 69.55 153.96366.34 71.00Measured I&ORecordInOutBal 02/724hr Tot 10 0 10 02/624hr Tot 200 0 200 Medications (24) Active Scheduled Meds (12): 03/04/18 amLODIPine 5 mg PO BID 03/04/18 atorvastatin 40 mg PO Bedtime 03/04/18 budesonide-formoterol 2 puff INHALER BID 03/04/18 hydrochlorothiazide 25 mg PO Daily 03/04/18 levothyroxine 25 microgram PO Daily 03/04/18 metoprolol (metoprolol tartrate) 25 mg PO BID 03/04/18 pantoprazole (Protonix) 40 mg PO Q12H 03/04/18 predniSONE 5 mg PO Daily 03/04/18 sodium chloride (Saline Flush 0.9%) 10 ml IVP Q12H 03/06/18 warfarin 4 mg PO Q- and Th 03/04/18 warfarin 3 mg PO Q-Sa and Turcios 03/05/18 warfarin 4 mg PO Q--- Unscheduled Meds: None PRN Meds (11): 03/04/18 Dextrose 50% in Water IV (Dextrose 50% Syringe) 12.5 gm IVP PRN 03/04/18 Dextrose 50% in Water IV (Dextrose 50% Syringe) 25 gm IVP PRN 03/04/18 glucagon 1 mg IM PRN 03/04/18 hydrALAZINE 10 mg IV Q3H 03/04/18 insulin lispro 1 unit SUB-Q TID-Before Meals 03/04/18 insulin lispro 2 unit SUB-Q TID-Before Meals 03/04/18 insulin lispro 3 unit SUB-Q TID-Before Meals 03/04/18 insulin lispro 4 unit SUB-Q TID-Before Meals 03/04/18 insulin lispro 5 unit SUB-Q TID-Before Meals 03/04/18 sodium chloride (Saline Flush 0.9%) 10 mL IVP PRN 03/04/18 sodium chloride (Saline Flush 0.9%) 10 ml IVP PRN One Time Meds (1): 03/05/18 (Ordered) iohexol (Omnipaque 350) 75 ml IV ONCE Continuous Infusions: None EXAm GEN - NAD HEENT - NCAT. MMM Ext - no c/c/e Skin - no rash Neuro: Mental status: Alert and oriented x3. Language intact. Follows all commands CN:PERRL, EOMI, no droop, facial sensation is normal Motor: 5/5 throughout Sensory: intact to LTx4 Cerebellar: intact ftn, hts Abnormal movements: none Gait: normal base and pace Assessment 1. Vertigo - MRI brain unremarkable. He has some stenosis in the posterior circulation which may or may not be contributing - may be mor sensitive to BP drops. Overall, exam is normal and he is feeling better 2. Dementia 3. History of prior strokes 4. Renal carcinoma 5. HTN 6. DMT2 7. HLD 8. CKD 9. PE Plan meclizine as needed for vertigo glucose control optimize statin dose based on lipid panel and stroke history May benefit from antiplatelet therapy once off coumadin on anticoaugulation - INR subtherapeutic CTA head and neck ordered Extracted from: Title: [facility] Author: Philipp Avalos MD Date: 03/04/18 Hospitalist Service Discharge Summary [facility] Hospitalist Service Discharge Summary PATIENT NAME:OMKAR CASTLILO JR ATTENDING: PHILIPP STOVALL JR, MD ADMISSION DATE: 03/04/2018 00:02 DISCHARGE DATE:03/04/2018 DISCHARGE DIAGNOSIS: Dizziness and giddiness (R42) CONSULTING PHYSICIANS/SERVICES: Yvan Johnson MDOffice: Service: Neurology Agustin Kimball MDOffice: Service: Medicine DISCHARGE CONDITION: Fair HISTORY OF PRESENT ILLNESS: Please see admission history and physical for presenting details HOSPITAL COURSE: The patient was admitted for transient dizziness, and vertigo. There was concern for a posterior circulation cerebrovascular accident, as this is the location of the patient's prior stroke. He underwent TTE which was essentially normal. He underwent CT of the brain which revealed old known areas of ischemia. He underwent MRI of the brain which revealed the same known lesions. MRI of the brain revealed numerous stenotic lesions which under the setting of a lower blood pressure likely led to his symptoms. His blood pressure likely contributed to his symptoms, especially with the introduction of valsartan, which is being held at time of discharge. He had resolution of his symptoms at time of discharge. I saw and examined the patient on day of discharge. The patient was discharged in fair condition, with appropriate followup and appropriate medications. DISCHARGE INSTRUCTIONS: Please notify your physician if any of the following occur: Bleeding, Fever, Nausea, Pain, Shortness of breath, Signs of infection, Swelling Activity: Activity as tolerated, No strenuous activity DISCHARGE DIET: Home Diet: Diet Carbohydrate Controlled DISCHARGE MEDICATIONS: PLEASE SEE R FOR DETAILS PERTAINING TO DISCHARGE MEDICATIONS DISCHARGE FOLLOWUP: Follow Up With Kali Merchant MD, Call for appointment, within: 1 Week, reason: Primary Care Physician follow up post hospitalization A total of 31 minutes was spent planning discharge which included bedside counseling. Addendum Additional real estate listing consultant: Frank Noriega Vascular Surgery by Date of discharge: 03/06/2018 [email or web address], Additional hospital course: Patient underwent CTA of the head and neck based on Philipp Meeks neurology's recommendations. 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 Vascular surgery recommended that the patient follow-up as an outpatient with 03/07/2018 neuro. 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
--- OUTSIDE RECORDS SUMMARY | 2018-12-22 11:54 | XMS REPORT | Summary of Care ---
Author Author [facility] Organization [facility] Address Unknown Phone Unavailable Encounter YONATHAN Gomez(NORMAN) [id number] Date(s): 11/16/18 - 11/28/18 [facility] [address] [employer] [facility] provided by [facility] [place] [address]- Discharge Disposition: Home or Self Care Attending Physician: Thong Palacios MD Admitting Physician: Art Holloway MD Vital Signs 1 2 3 Most recent to oldest [Reference Range]: 180.34 cm (11/16/18 11:00 PM) Height 70.057 kg (11/27/18 7:52 AM) 68.636 kg (11/26/18 5:16 AM) 69.136 kg (11/24/18 4:05 AM) Current Weight 96.7 DegF (11/28/18 11:28 AM) 97.3 DegF (11/28/18 4:00 AM) 98.8 DegF (11/28/18 12:26 AM) Temperature Oral [96.4-99.1 DegF] 133/64 mmHg (11/28/18 4:00 PM) 135/62 mmHg (11/28/18 2:00 PM) 125/58 mmHg (11/28/18 12:00 PM) Blood Pressure [90-140/60-90 mmHg] 18 BRMIN (11/28/18 4:00 PM) 16 BRMIN (11/28/18 12:00 PM) 18 BRMIN (11/28/18 11:28 AM) Respiratory Rate [14-20 BRMIN] 67.926 kg (11/22/18 5:23 AM) 67.784 kg (11/21/18 4:58 AM) 69.091 kg (11/16/18 11:00 PM) Weight 21.24 m2 (11/16/18 11:00 PM) Body Mass Index Problem List Condition Effective Dates Status Health Status Informant Asthma(Confirmed) Resolved Heart Resolved attack(Confirmed) Hypertension(Confirm Resolved ed) Stroke(Confirmed) Resolved Allergies, Adverse Reactions, Alerts Substance Reaction Severity Status iodine topical Active ciprofloxacin Active hydrALAZINE Active propoxyphene Active barium sulfate Active Zocor Active Vicodin Active Benadryl Active Januvia Active contrast media Active (iodine-based) Xarelto Active metFORMIN Active HYDROcodone Active levoFLOXacin Active Medications amLODIPine 5 mg, 1 tab, Route: PO, Drug form: TAB, BID, Dosing Weight 69.091, kg, Start syeda e: 11/17/18 9:00:00 ACQUISITIONS EDITOR, Duration: 30 day, Stop date: 12/16/18 17:00:00 ACQUISITIONS EDITOR Notes: (Same as: Eddie) Start Date: 11/17/18 Stop Date: 11/17/18 Status: Canceled amLODIPine 10 mg, 1 tab, Route: PO, Drug form: TAB, Daily, Dosing Weight 69.091, kg, Start date: 11/17/18 0:53:00 ACQUISITIONS EDITOR, Duration: 30 day, Stop date: 12/16/18 9:00:00 ACQUISITIONS EDITOR Notes: (Same as: Brendanc) Start Date: 11/17/18 Stop Date: 11/23/18 Status: Discontinued aspirin 81 mg, 1 tab, Route: PO, Drug form: ECTAB, Daily, Dosing Weight 69.091, kg, Star t date: 11/20/18 17:00:00 ACQUISITIONS EDITOR, Duration: 30 day, Stop date: 12/20/18 9:00:00 ACQUISITIONS EDITOR Notes: Do not crush or chew.(Same As: Ecotrin) Start Date: 11/20/18 Stop Date: 11/28/18 Status: Discontinued aspirin 81 mg tablet, enteric coated 81 mg=1 tab, PO, Daily, # 100 tab, 3 Refill(s) Start Date: 11/28/18 Status: Ordered atorvastatin 40 mg, 1 tab, Route: PO, Drug form: TAB, Bedtime, Dosing Weight 69.091, kg, Star t date: 11/17/18 21:00:00 ACQUISITIONS EDITOR, Duration: 30 day, Stop date: 12/16/18 21:00:00 CS T Notes: (Same as: Lipitor) Start Date: 11/17/18 Stop Date: 11/28/18 Status: Discontinued atorvastatin 40 mg oral tablet 40 mg=1 tab, PO, Bedtime, # 30 tab, 3 Refill(s) Start Date: 11/28/18 Status: Ordered calcium gluconate + Sodium Chloride 0.9% IV 80 mL 2 gm, 20 mL, Route: IVPB, PRN, Dosing Weight 69.091, kg, PRN Abnormal Lab Result , For NON-ICU Patients Only., Start date: 11/17/18 0:26:00 ACQUISITIONS EDITOR, Duration: 30 day , Stop date: 12/17/18 0:25:00 ACQUISITIONS EDITOR Notes: WASTE: F/P - Sink; E - Municipal Trash Bin Start Date: 11/17/18 Stop Date: 11/28/18 Status: Discontinued calcium gluconate + Sodium Chloride 0.9% IV 80 mL 3 gm, 30 mL, Route: IVPB, PRN, Dosing Weight 69.091, kg, PRN Abnormal Lab Result , For NON-ICU Patients Only., Start date: 11/17/18 0:26:00 ACQUISITIONS EDITOR, Duration: 30 day , Stop date: 12/17/18 0:25:00 ACQUISITIONS EDITOR Notes: WASTE: F/P - Sink; E - Municipal Trash Bin Start Date: 11/17/18 Stop Date: 11/28/18 Status: Discontinued Cardene 40 mg in NS 200 mL (Titrate.) IV 40 mg 40 mg, 200 mL, Rate: Titrate, Start Dose: 5 mg/hr, Titration: 2.5 mg/hr every 15 minutes, Goal(s): MAP<65, Max Dose: 15 mg/hr, Route: IV, Dosing Weight 67.926 kg, Total Volume: 200, Start date: 11/23/18 10:51:00 ACQUISITIONS EDITOR, Duration: 30 day, Stop date: 12/23... Notes: Same as: Cardene Start Date: 11/23/18 Stop Date: 11/25/18 Status: Discontinued clopidogrel 75 mg, 1 tab, Route: PO, Drug form: TAB, Daily, Dosing Weight 67.926, kg, Start date: 11/23/18 9:00:00 ACQUISITIONS EDITOR, Duration: 30 day, Stop date: 12/22/18 9:00:00 ACQUISITIONS EDITOR Notes: (Same As: Plavix) Start Date: 11/23/18 Stop Date: 11/28/18 Status: Discontinued clopidogrel 75 mg oral tablet 75 mg=1 tab, PO, Daily, # 30 tab, 3 Refill(s) Start Date: 11/28/18 Status: Ordered Coumadin 7.5 mg, 1 tab, Route: PO, Drug form: TAB, Q5PM, Dosing Weight 67.926, kg, Start date: 11/27/18 17:00:00 ACQUISITIONS EDITOR, Duration: 1 doses or times, Stop date: 11/27/18 17: 00:00 ACQUISITIONS EDITOR Notes: Nurse to ensure documentation of patient education per anticoagulation po licy.Avoid large intake of vitamin-K containing foods diet.WASTE: F/P - P Waste Black; E - P Waste Black(Same As: Coumadin) Start Date: 11/27/18 Stop Date: 11/27/18 Status: Completed docusate 100 mg, 1 cap, Route: PO, Drug form: CAP, BID, Dosing Weight 67.926, kg, PRN Con stipation, Start date: 11/24/18 15:41:00 ACQUISITIONS EDITOR, Duration: 30 day, Stop date: 12/24 15:40:00 ACQUISITIONS EDITOR Notes: (Same as: Colace) (Do Not Crush) Start Date: 11/24/18 Stop Date: 11/28/18 Status: Discontinued docusate-senna 50 mg-8.6 mg oral tablet 1 tab, Route: PO, Drug Form: TAB, Dosing Weight 67.926, kg, BID, Start date: 17:00:00 ACQUISITIONS EDITOR, Duration: 30 day, Stop date: 12/24/18 9:00:00 ACQUISITIONS EDITOR Notes: (Same as Senokot-S) Equiv. to Marline-Colace. Start Date: 11/24/18 Stop Date: 11/28/18 Status: Discontinued enoxaparin 40 mg, 0.4 mL, Route: SUB-Q, Drug form: INJ, [id number], Dosing Weight 67.926, kg, Start date: 11/23/18 9:00:00 ACQUISITIONS EDITOR, Duration: 30 day, Stop date: 12/22/18 9:00:00 ACQUISITIONS EDITOR Notes: (Same as: Lovenox) Start Date: 11/23/18 Stop Date: 11/24/18 Status: Discontinued EPINEPHrine 0.3 mg injectable kit 0.3 mg, Route: IM, Drug form: INJ, ONCALL, Dosing Weight 69.091, kg, Start date: 11/20/18 15:00:00 ACQUISITIONS EDITOR, Duration: 1 doses or times Notes: (Same as: Epipen Auto Inejctor) Prefilled syringe for IM use. Start Date: 11/20/18 Stop Date: 11/23/18 Status: Discontinued Heparin 40 unit/kg Bolus (Heparin Dosing Weight) Route: IVP, PRN, 2,700 unit, 2.7 mL, Drug form: INJ, PRN, Heparin Protocol, Star t date: 11/24/18 11:30:00 ACQUISITIONS EDITOR Stop date: 12/24/18 11:29:00 ACQUISITIONS EDITOR, 30 day Start Date: 11/24/18 Stop Date: 11/28/18 Status: Discontinued Heparin 40 unit/kg Bolus (Heparin Dosing Weight) Route: IVP, PRN, 2,800 unit, 2.8 mL, Drug form: INJ, PRN, Heparin Protocol, Star t date: 11/17/18 0:29:00 ACQUISITIONS EDITOR Stop date: 12/17/18 0:28:00 ACQUISITIONS EDITOR, 30 day Start Date: 11/17/18 Stop Date: 11/23/18 Status: Discontinued Heparin 80 unit/kg Bolus (Heparin Dosing Weight) Route: IVP, PRN, 5,400 unit, 5.4 mL, Drug form: INJ, PRN, Heparin Protocol, Star t date: 11/24/18 11:30:00 ACQUISITIONS EDITOR Stop date: 12/24/18 11:29:00 ACQUISITIONS EDITOR, 30 day Start Date: 11/24/18 Stop Date: 11/28/18 Status: Discontinued Heparin 80 unit/kg Bolus (Heparin Dosing Weight) Route: IVP, PRN, 5,500 unit, 5.5 mL, Drug form: INJ, PRN, Heparin Protocol, Star t date: 11/17/18 0:29:00 ACQUISITIONS EDITOR Stop date: 12/17/18 0:28:00 ACQUISITIONS EDITOR, 30 day Start Date: 11/17/18 Stop Date: 11/23/18 Status: Discontinued heparin additive 25,000 unit [18 unit/kg/hr] + Premix Diluent Sodium Chloride 0. 45% 500 mL 500 mL, Rate: 24.45 ml/hr, Infuse over: 20.4 hr, Route: IV, Dosing Weight 67.93 kg, Total Volume: 500 mL, Start date: 11/24/18 11:30:00 ACQUISITIONS EDITOR, Duration: 30 day, S top date: 12/24/18 11:29:00 ACQUISITIONS EDITOR, 1.85, m2 Notes: Total Concentration=50 unit/ ml Total bvfctl=589 mlSend Med Request 2 ho urs prior to next bag Start Date: 11/24/18 Stop Date: 11/28/18 Status: Discontinued heparin additive 25,000 unit [18 unit/kg/hr] + Premix Diluent Sodium Chloride 0. 45% 500 mL 500 mL, Rate: 24.87 ml/hr, Infuse over: 20.1 hr, Route: IV, Dosing Weight 69.091 kg, Total Volume: 500 mL, Start date: 11/17/18 0:29:00 ACQUISITIONS EDITOR, Duration: 30 day, S top date: 12/17/18 0:28:00 ACQUISITIONS EDITOR, 1.86, m2 Notes: Total Concentration=50 unit/ ml Total ldlvrc=699 mlSend Med Request 2 ho urs prior to next bag Start Date: 11/17/18 Stop Date: 11/23/18 Status: Discontinued Imdur 60 mg, 1 tab, Route: PO, Drug form: ERTAB, QAM, Dosing Weight 69.091, kg, Start date: 11/17/18 9:00:00 ACQUISITIONS EDITOR, Duration: 30 day, Stop date: 12/16/18 9:00:00 ACQUISITIONS EDITOR Notes: (Same as:Imdur)"Do Not Crush" Take on empty stomach/ full glass of water . Do not crush Start Date: 11/17/18 Stop Date: 11/28/18 Status: Discontinued isosorbide mononitrate 60 mg oral tablet, extended release 60 mg=1 tab, PO, QAM, # 30 tab, 3 Refill(s) Start Date: 11/28/18 Status: Ordered Kirby packet 1 pkt, Route: PO, Drug Form: PWDR, Dosing Weight 67.926, kg, BID-Before Meals, S tart date: 11/28/18 16:30:00 ACQUISITIONS EDITOR, Duration: 14 day, Stop date: 12/12/18 7:30:00 ACQUISITIONS EDITOR Notes: (Same as: Kirby Ophiem) Start Date: 11/28/18 Stop Date: 11/28/18 Status: Discontinued lactulose 10 g/15 mL oral syrup 10 gm, 15 ml, Route: PO, Drug form: SYRP, Daily, Dosing Weight 67.926, kg, PRN C onstipation, Start date: 11/27/18 10:20:00 ACQUISITIONS EDITOR, Duration: 30 day, Stop date: 10:19:00 ACQUISITIONS EDITOR Notes: (Same as:Chronulac) Start Date: 11/27/18 Stop Date: 11/28/18 Status: Discontinued Lasix 40 mg oral tablet 40 mg, 1 tab, Route: PO, Drug form: TAB, Daily, Dosing Weight 69.091, kg, Start date: 11/17/18 9:00:00 ACQUISITIONS EDITOR, Duration: 30 day, Stop date: 12/16/18 9:00:00 ACQUISITIONS EDITOR Notes: (Same as: Lasix) May cause GI upset. Give with food or milk. Start Date: 11/17/18 Stop Date: 11/23/18 Status: Discontinued levothyroxine 25 microgram, 1 tab, Route: PO, Drug form: TAB, Daily, Dosing Weight 69.091, kg, Start date: 11/17/18 6:30:00 ACQUISITIONS EDITOR, Duration: 30 day, Stop date: 12/16/18 6:30:00 ACQUISITIONS EDITOR Notes: Take 1 hour before or 2 hours after meal; Enteral feeds may interefere wi th the absorption of this medication. (Same as:Levothroid) Start Date: 11/17/18 Stop Date: 11/28/18 Status: Discontinued losartan 100 mg, 2 tab, Route: PO, Drug form: TAB, Daily, Dosing Weight 69.091, kg, Start date: 11/24/18 9:00:00 ACQUISITIONS EDITOR, Duration: 30 day, Stop date: 12/23/18 9:00:00 ACQUISITIONS EDITOR Notes: (Same as: [place]) Start Date: 11/24/18 Stop Date: 11/28/18 Status: Discontinued losartan 50 mg, 1 tab, Route: PO, Drug form: TAB, ONCE, Dosing Weight 67.926, kg, Start d ate: 11/23/18 8:30:00 ACQUISITIONS EDITOR, Stop date: 11/23/18 8:30:00 ACQUISITIONS EDITOR Notes: (Same as: Raji) Start Date: 11/23/18 Stop Date: 11/23/18 Status: Completed losartan 25 mg, 1 tab, Route: PO, Drug form: TAB, Daily, Dosing Weight 69.091, kg, Start date: 11/20/18 12:00:00 ACQUISITIONS EDITOR, Duration: 30 day, Stop date: 12/20/18 9:00:00 ACQUISITIONS EDITOR Notes: (Same as: Raji) Start Date: 11/20/18 Stop Date: 11/21/18 Status: Discontinued losartan 100 mg, Route: PO, Drug form: TAB, Daily, Dosing Weight 69.091, kg, Start date: 11/22/18 9:00:00 ACQUISITIONS EDITOR, Duration: 30 day, Stop date: 12/21/18 9:00:00 ACQUISITIONS EDITOR Notes: (Same as: Raji) Start Date: 11/22/18 Stop Date: 11/23/18 Status: Discontinued losartan 100 mg oral tablet 100 mg=1 tab, PO, Daily, # 30 tab, 3 Refill(s) Start Date: 11/28/18 Status: Ordered magnesium citrate 1.745 g/30 mL oral liquid 300 ml, Route: PO, Drug Form: LIQ, Dosing Weight 67.926, kg, ONCE, Start date: 0 11/27/18 12:51:00 ACQUISITIONS EDITOR, Stop date: 11/27/18 12:51:00 ACQUISITIONS EDITOR Notes: (Same as: Citrate of Magnesia)Concentration: 1.745 gm / 30 mL Start Date: 11/27/18 Stop Date: 11/27/18 Status: Completed magnesium citrate 1.745 g/30 mL oral liquid 300 ml, Route: PO, Drug Form: LIQ, Dosing Weight 67.926, kg, ONCE, Start date: 0 11/27/18 15:45:00 ACQUISITIONS EDITOR, Stop date: 11/27/18 15:45:00 ACQUISITIONS EDITOR Notes: (Same as: Citrate of Magnesia)Concentration: 1.745 gm / 30 mL Start Date: 11/27/18 Stop Date: 11/27/18 Status: Completed magnesium oxide 800 mg, 2 tab, Route: PO, Drug form: TAB, PRN, Dosing Weight 69.091, kg, PRN Abn ormal Lab Result, For NON-ICU Patients Only., Start date: 11/17/18 0:26:00 ACQUISITIONS EDITOR, Duration: 30 day, Stop date: 12/17/18 0:25:00 ACQUISITIONS EDITOR Notes: (Same as: Mag-Ox 400)Magnesium oxide [id number] elemental magnesiumDose= ____mg magnesium oxide (___mg elemental magnesium) Start Date: 11/17/18 Stop Date: 11/28/18 Status: Discontinued magnesium sulfate 2 gm, 50 mL, Route: IVPB, Drug form: INJ, PRN, Dosing Weight 69.091, kg, PRN Abn ormal Lab Result, For NON-ICU Patients Only., Start date: 11/17/18 0:26:00 ACQUISITIONS EDITOR, Duration: 30 day, Stop date: 12/17/18 0:25:00 ACQUISITIONS EDITOR Notes: WASTE: F/P - Sink; E - Municipal Trash Bin Start Date: 11/17/18 Stop Date: 11/28/18 Status: Discontinued magnesium sulfate 1 gm, 100 mL, Route: IVPB, Drug form: INJ, PRN, Dosing Weight 69.091, kg, PRN Ab normal Lab Result, For NON-ICU Patients Only., Start date: 11/17/18 0:26:00 ACQUISITIONS EDITOR, Duration: 30 day, Stop date: 12/17/18 0:25:00 ACQUISITIONS EDITOR Notes: WASTE: F/P - Sink; E - Municipal Trash Bin Start Date: 11/17/18 Stop Date: 11/28/18 Status: Discontinued meclizine 25 mg oral tablet 25 mg=1 tab, PO, Daily, 0 Refill(s) Start Date: 11/16/18 Stop Date: 11/28/18 Status: Discontinued metoprolol tartrate 25 mg, 1 tab, Route: PO, Drug form: TAB, BID, Dosing Weight 69.091, kg, Start da te: 11/17/18 9:00:00 ACQUISITIONS EDITOR, Duration: 30 day, Stop date: 12/16/18 17:00:00 ACQUISITIONS EDITOR Notes: (Same as: Lopressor) Start Date: 11/17/18 Stop Date: 11/17/18 Status: Canceled metoprolol tartrate 12.5 mg, 0.5 tab, Route: PO, Drug form: TAB, Q12H, Dosing Weight 69.091, kg, Sta rt date: 11/17/18 9:00:00 ACQUISITIONS EDITOR, Duration: 30 day, Stop date: 12/16/18 21:00:00 CS T Notes: (Same as: Lopressor) 12.5 mg=1/2 X 25 mg TAB Start Date: 11/17/18 Stop Date: 11/28/18 Status: Discontinued metoprolol tartrate 25 mg oral tablet 12.5 mg=0.5 tab, PO, Q12H, # 30 tab, 3 Refill(s) Start Date: 11/28/18 Status: Ordered MiraLax 17 gm, 1 pkt, Route: PO, Drug form: PWDR, ONCE, Dosing Weight 67.926, kg, Start date: 11/26/18 16:42:00 ACQUISITIONS EDITOR, Stop date: 11/26/18 16:42:00 ACQUISITIONS EDITOR Notes: Dissolve in 8 oz of water or juice.(Same as: Miralax) Start Date: 11/26/18 Stop Date: 11/26/18 Status: Completed molasses 240 mL, Route: MD, Drug Form: SYRP, Dosing Weight 67.926, kg, ONCE, Milk of Mola sses Enema, Start date: 11/24/18 17:32:00 ACQUISITIONS EDITOR, Stop date: 11/24/18 17:32:00 ACQUISITIONS EDITOR Notes: (Same as:Molasses) Start Date: 11/24/18 Stop Date: 11/24/18 Status: Completed molasses 240 mL, Route: MD, Drug Form: SYRP, Dosing Weight 67.926, kg, ONCE, Milk of Mola sses Enema, Start date: 11/27/18 12:50:00 ACQUISITIONS EDITOR, Stop date: 11/27/18 12:50:00 ACQUISITIONS EDITOR Notes: (Same as:Molasses) Start Date: 11/27/18 Stop Date: 11/27/18 Status: Completed NIFEdipine 60 mg oral tablet, extended release 60 mg, 1 tab, Route: PO, Drug form: ERTAB, BID, Dosing Weight 67.926, kg, Start date: 11/23/18 11:07:00 ACQUISITIONS EDITOR, Duration: 30 day, Stop date: 12/23/18 9:00:00 ACQUISITIONS EDITOR Notes: (Same as: Adalat CC, Procardia XL) Give on empty stomach. Take 1 hour be fore or 2 hours after meal; "Avoid grapefruit and grapefruit juice". Do not cru sh Start Date: 11/23/18 Stop Date: 11/28/18 Status: Discontinued NIFEdipine 60 mg oral tablet, extended release 60 mg=1 tab, PO, BID, # 60 tab, 3 Refill(s) Start Date: 11/28/18 Stop Date: 03/28/19 Status: Ordered nitroglycerin SL Tab 0.4 mg, 1 tab, Route: SL, Drug form: TAB, Q5Min, Dosing Weight 67.926, kg, PRN C hest Pain, Start date: 11/22/18 14:57:00 ACQUISITIONS EDITOR, Duration: 3 doses or times, Stop d ate: Limited # of times Notes: (Same as:Nitroquick, Nitrostat)"Do Not Crush" Sublingual tablet Start Date: 11/22/18 Stop Date: 11/28/18 Status: Discontinued normal saline 0.9% IV 250 mL 250 mL, Rate: 75 ml/hr, Infuse over: 3.3 hr, Route: IV, Dosing Weight 67.926 kg, Total Volume: 250, Start date: 11/28/18 10:38:00 ACQUISITIONS EDITOR, Duration: 1 doses or time s, Stop date: 11/28/18 13:55:00 ACQUISITIONS EDITOR, 1.85, m2 Start Date: 11/28/18 Stop Date: 11/28/18 Status: Completed omeprazole 40 mg, Route: PO, Drug form: DRC, Daily, Dosing Weight 69.091, kg, Start date: 0 11/17/18 9:00:00 ACQUISITIONS EDITOR, Duration: 30 day, Stop date: 12/16/18 9:00:00 ACQUISITIONS EDITOR Start Date: 11/17/18 Stop Date: 11/17/18 Status: Discontinued pantoprazole 40 mg oral enteric coated tablet 40 mg=1 tab, PO, Q24H, # 30 tab, 3 Refill(s) Start Date: 11/28/18 Stop Date: 03/28/19 Status: Ordered Pepcid 20 mg, 2 mL, Route: IV, Drug form: INJ, ONCE, Dosing Weight 67.784, kg, Start da te: 11/22/18 8:00:00 ACQUISITIONS EDITOR, Stop date: 11/22/18 8:00:00 ACQUISITIONS EDITOR Notes: (Same as: Pepcid)Can be dilute in 5-10cc NS IVP: Slow IV push over at le ast 2 minutes. Start Date: 11/22/18 Stop Date: 11/22/18 Status: Completed potassium chloride 10 mEq, 50 mL, Route: IVPB, Drug form: INJ, PRN, Dosing Weight 69.091, kg, PRN A bnormal Lab Result, For NON-ICU Patients Only, Start date: 11/17/18 0:26:00 ACQUISITIONS EDITOR, Duration: 30 day, Stop date: 12/17/18 0:25:00 ACQUISITIONS EDITOR Notes: (Same as: KCL) Infuse over 2 hours. Start Date: 11/17/18 Stop Date: 11/28/18 Status: Discontinued potassium chloride 20 mEq, 1 tab, Route: NJ, Drug form: ERTAB, PRN, Dosing Weight 69.091, kg, PRN A bnormal Lab Result, For NON-ICU Patients Only, Start date: 11/17/18 0:26:00 ACQUISITIONS EDITOR, Duration: 30 day, Stop date: 12/17/18 0:25:00 ACQUISITIONS EDITOR Notes: (Same as: K-Dur 20)"Do Not Crush" Give with food and full glass of water For patients unable to swallow tablet, dissolve in one half glass of water. Allo w about 2 minutes for the tablets to disintegrate. Stir before giving to prepare slurry and administer.Please exclude Patients with feeding tube less than 14 [place] (Dobhoff, J-tube etc) and pediatric and patients. Start Date: 11/17/18 Stop Date: 11/28/18 Status: Discontinued potassium chloride 20 mEq, 1 tab, Route: PO, Drug form: ERTAB, PRN, Dosing Weight 69.091, kg, PRN A bnormal Lab Result, For NON-ICU Patients Only, Start date: 11/17/18 0:26:00 ACQUISITIONS EDITOR, Duration: 30 day, Stop date: 12/17/18 0:25:00 ACQUISITIONS EDITOR Notes: (Same as: K-Dur 20)"Do Not Crush" Give with food and full glass of water For patients unable to swallow tablet, dissolve in one half glass of water. Allo w about 2 minutes for the tablets to disintegrate. Stir before giving to prepare slurry and administer.Please exclude Patients with feeding tube less than 14 [place] (Dobhoff, J-tube etc) and pediatric and patients. Start Date: 11/17/18 Stop Date: 11/28/18 Status: Discontinued potassium phosphate + Sodium Chloride 0.9% IV 250 mL 30 mmol, 10 mL, Route: IVPB, PRN, Dosing Weight 69.091, kg, PRN Abnormal Lab Res ult, For NON-ICU Patients Only., Start date: 11/17/18 0:26:00 ACQUISITIONS EDITOR, Duration: 30 day, Stop date: 12/17/18 0:25:00 ACQUISITIONS EDITOR Notes: (Same as: K Phosphate.)Do not infuse phosphorous concurrently in the same line as TPN or IVF that contains calcium. For double lumen central lines, phosp horous may be infused in a separate lumen from TPN. 1 mMol phoshate has 1.47 mE q potassium Infuse over 4 hours Start Date: 11/17/18 Stop Date: 11/28/18 Status: Discontinued potassium phosphate + Sodium Chloride 0.9% IV 250 mL 15 mmol, 5 mL, Route: IVPB, PRN, Dosing Weight 69.091, kg, PRN Abnormal Lab Resu lt, For NON-ICU Patients Only., Start date: 11/17/18 0:26:00 ACQUISITIONS EDITOR, Duration: 30 d ay, Stop date: 12/17/18 0:25:00 ACQUISITIONS EDITOR Notes: (Same as: K Phosphate.)Do not infuse phosphorous concurrently in the same line as TPN or IVF that contains calcium. For double lumen central lines, phosp horous may be infused in a separate lumen from TPN. 1 mMol phoshate has 1.47 mE q potassium Infuse over 4 hours Start Date: 11/17/18 Stop Date: 11/28/18 Status: Discontinued potassium phosphate-sodium phosphate 250 mg-280 mg-160 mg oral powder for recons titution 2 pkt, Route: PO, Drug Form: PDR/REC, Dosing Weight 69.091, kg, PRN, PRN Abnorma l Lab Result, For NON-ICU Patients Only, Start date: 11/17/18 0:26:00 ACQUISITIONS EDITOR, Durat ion: 30 day, Stop date: 12/17/18 0:25:00 ACQUISITIONS EDITOR Notes: (Same as: Phos-NaK) Each 1.5 gm pkt has 250mg phosphorous. Mix w/2.5oz w ater and stir. Start Date: 11/17/18 Stop Date: 11/28/18 Status: Discontinued predniSONE 5 mg, 1 tab, Route: PO, Drug form: TAB, Daily, Dosing Weight 69.091, kg, Start d ate: 11/17/18 9:00:00 ACQUISITIONS EDITOR, Duration: 30 day, Stop date: 12/16/18 9:00:00 ACQUISITIONS EDITOR Notes: Take with food. Start Date: 11/17/18 Stop Date: 11/28/18 Status: Discontinued Protonix 40 mg, 1 tab, Route: PO, Drug form: ECTAB, Q24H, Start date: 11/17/18 7:00:00 CS T, Duration: 30 day, Stop date: 12/16/18 7:00:00 ACQUISITIONS EDITOR Notes: Tablet should not be chewed or crushed.(Same as: Protonix) Start Date: 11/17/18 Stop Date: 11/28/18 Status: Discontinued Sodium Chloride 0.9% (Bolus) IV 250 mL, 250 ml/hr, Infuse Over: 1 hr, Route: IV, 250, Drug form: INJ, ONCALL, Pr iority: Routine, Dosing Weight 67.784 kg, Start date: 11/22/18 3:00:00 ACQUISITIONS EDITOR, Dura tion: 1 doses or times Start Date: 11/22/18 Stop Date: 11/27/18 Status: Discontinued Sodium Chloride 0.9% IV 750 mL 750 mL, Rate: 75 ml/hr, Infuse over: 10 hr, Route: IVPB, Dosing Weight 67.784 kg , Total Volume: 750, Start date: 11/22/18 2:48:00 ACQUISITIONS EDITOR, Duration: 24 hr, Stop syeda e: 11/23/18 2:47:00 ACQUISITIONS EDITOR, 1.85, m2 Start Date: 11/22/18 Stop Date: 11/23/18 Status: Completed sodium phosphate + Sodium Chloride 0.9% IV 250 mL 30 mmol, 10 mL, Route: IVPB, PRN, Dosing Weight 69.091, kg, PRN Abnormal Lab Res ult, For NON-ICU Patients Only., Start date: 11/17/18 0:26:00 ACQUISITIONS EDITOR, Duration: 30 day, Stop date: 12/17/18 0:25:00 ACQUISITIONS EDITOR Notes: Infuse over 4 hour. Do not infuse phosphorous concurrently in the same li ne as TPN or IVF that contains calcium. For double lumen central lines, phosphor ous may be infused in a separate lumen from TPN. Start Date: 11/17/18 Stop Date: 11/28/18 Status: Discontinued sodium phosphate + Sodium Chloride 0.9% IV 250 mL 15 mmol, 5 mL, Route: IVPB, PRN, Dosing Weight 69.091, kg, PRN Abnormal Lab Resu lt, For NON-ICU Patients Only., Start date: 11/17/18 0:26:00 ACQUISITIONS EDITOR, Duration: 30 d ay, Stop date: 12/17/18 0:25:00 ACQUISITIONS EDITOR Notes: Infuse over 4 hour. Do not infuse phosphorous concurrently in the same li ne as TPN or IVF that contains calcium. For double lumen central lines, phosphor ous may be infused in a separate lumen from TPN. Start Date: 11/17/18 Stop Date: 11/28/18 Status: Discontinued Solu-MEDROL 125 mg, 2 mL, Route: IV, Drug form: INJ, ONCE, Dosing Weight 67.784, kg, Start d ate: 11/21/18 12:59:00 ACQUISITIONS EDITOR, Stop date: 11/21/18 12:59:00 ACQUISITIONS EDITOR Notes: (Same as:Solu-MEDROL, A-Methapred) Start Date: 11/21/18 Stop Date: 11/21/18 Status: Discontinued Solu-MEDROL 125 mg, 2 mL, Route: IV, Drug form: INJ, ONCE, Dosing Weight 67.784, kg, Start d ate: 11/22/18 8:00:00 ACQUISITIONS EDITOR, Stop date: 11/22/18 8:00:00 ACQUISITIONS EDITOR Notes: (Same as:Solu-MEDROL, A-Methapred) Start Date: 11/22/18 Stop Date: 11/22/18 Status: Completed Tylenol 325 mg, 1 tab, Route: PO, Drug form: TAB, ONCE, Start date: 11/26/18 18:45:00 CS T, Stop date: 11/26/18 18:45:00 ACQUISITIONS EDITOR Notes: Do not exceed 4 gm/day. (Same as: Tylenol) Start Date: 11/26/18 Stop Date: 11/26/18 Status: Completed Tylenol with Codeine #3 oral tablet 1 tab, Route: PO, Dosing Weight 67.926, kg, ONCE, Start date: 11/26/18 17:51:00 ACQUISITIONS EDITOR, Stop date: 11/26/18 17:51:00 ACQUISITIONS EDITOR Start Date: 11/26/18 Stop Date: 11/26/18 Status: Discontinued warfarin 6 mg, 2 tab, Route: PO, Drug form: TAB, Q5PM, Dosing Weight 67.926, kg, Start da te: 11/28/18 17:00:00 ACQUISITIONS EDITOR, Duration: 1 doses or times, Stop date: 11/28/18 17:00 :00 ACQUISITIONS EDITOR Notes: Nurse to ensure documentation of patient education per anticoagulation po licy.Avoid large intake of vitamin-K containing foods diet.(Same As: Coumadin)WA MINDY: F/P - P Waste Black; E - P Waste Black Start Date: 11/28/18 Stop Date: 11/28/18 Status: Completed warfarin 5 mg, 1 tab, Route: PO, Drug form: TAB, Q5PM, Dosing Weight 67.926, kg, Start da te: 11/25/18 17:00:00 ACQUISITIONS EDITOR, Duration: 1 doses or times, Stop date: 11/25/18 18:07 :00 ACQUISITIONS EDITOR Notes: Nurse to ensure documentation of patient education per anticoagulation po licy.Avoid large intake of vitamin-K containing foods diet.WASTE: F/P - P Waste Black; E - P Waste Black(Same As: Coumadin) Start Date: 11/25/18 Stop Date: 11/25/18 Status: Completed warfarin 5 mg, 1 tab, Route: PO, Drug form: TAB, Q5PM, Dosing Weight 67.926, kg, Start da te: 11/24/18 17:00:00 ACQUISITIONS EDITOR, Duration: 1 doses or times, Stop date: 11/24/18 17:00 :00 ACQUISITIONS EDITOR Notes: Nurse to ensure documentation of patient education per anticoagulation po licy.Avoid large intake of vitamin-K containing foods diet.WASTE: F/P - P Waste Black; E - P Waste Black(Same As: Coumadin) Start Date: 11/24/18 Stop Date: 11/24/18 Status: Completed warfarin 5 mg, 1 tab, Route: PO, Drug form: TAB, Q5PM, Dosing Weight 67.926, kg, Start da te: 11/26/18 17:00:00 ACQUISITIONS EDITOR, Duration: 1 doses or times, Stop date: 11/26/18 17:00 :00 ACQUISITIONS EDITOR Notes: Nurse to ensure documentation of patient education per anticoagulation po licy.Avoid large intake of vitamin-K containing foods diet.WASTE: F/P - P Waste Black; E - P Waste Black(Same As: Coumadin) Start Date: 11/26/18 Stop Date: 11/26/18 Status: Completed Zofran 4 mg, 2 mL, Route: IVP, Drug form: INJ, ONCE, Dosing Weight 67.926, kg, Priority : STAT, Start date: 11/27/18 8:57:00 ACQUISITIONS EDITOR, Stop date: 11/27/18 8:57:00 ACQUISITIONS EDITOR Notes: (Same as: Zofran) MEDICATION WASTE Product Size: 4 mgProduct Was omaira: ___ mg Start Date: 11/27/18 Stop Date: 11/27/18 Status: Completed Results BLOOD BANK RESULTS 1 2 3 Most recent to oldest [Reference Range]: O POS *Unknown* (11/22/18 4:44 AM) ABO/Rh Negative (11/22/18 4:44 AM) Antibody Scrn ELECTROLYTES 1 2 3 Most recent to oldest [Reference Range]: 140 mEq/L (11/28/18 2:57 PM) 139 mEq/L (11/28/18 2:15 AM) 138 mEq/L (11/27/18 4:14 AM) Sodium Lvl [135-145 mEq/L] 4.4 mEq/L (11/28/18 2:57 PM) 4.4 mEq/L (11/28/18 2:15 AM) 3.8 mEq/L (11/27/18 4:14 AM) Potassium Lvl [3.5-5.1 mEq/L] 108 mEq/L (11/28/18 2:57 PM) 107 mEq/L (11/28/18 2:15 AM) 107 mEq/L (11/27/18 4:14 AM) Chloride Lvl [95-109 mEq/L] 24 mEq/L (11/28/18 2:57 PM) 21 mEq/L *LOW* (11/28/18 2:15 AM) 20 mEq/L *LOW* (11/27/18 4:14 AM) CO2 [24-32 mEq/L] 12.4 mEq/L (11/28/18 2:57 PM) 15.4 mEq/L (11/28/18 2:15 AM) 14.8 mEq/L (11/27/18 4:14 AM) AGAP [10.0-20.0 mEq/L] CHEM PANEL 1 2 3 Most recent to oldest [Reference Range]: 1.63 mg/dL *HI* (11/28/18 2:57 PM) 1.85 mg/dL *HI* (11/28/18 2:15 AM) 1.39 mg/dL (11/27/18 4:14 AM) Creatinine Lvl [0.50-1.40 mg/dL] 39 mL/min/1.73m2 1 *NA* (11/28/18 2:57 PM) 33 mL/min/1.73m2 2 *NA* (11/28/18 2:15 AM) 47 mL/min/1.73m2 3 *NA* (11/27/18 4:16 AM) eGFR 41 mg/dL *HI* (11/28/18 2:57 PM) 43 mg/dL *HI* (11/28/18 2:15 AM) 41 mg/dL *HI* (11/27/18 4:14 AM) BUN [7-22 mg/dL] 17 (11/17/18 1:09 AM) B/C Ratio [6-25] 174 mg/dL *HI* (11/28/18 2:57 PM) 78 mg/dL (11/28/18 2:15 AM) 116 mg/dL *HI* (11/27/18 4:14 AM) Glucose Lvl [70-99 mg/dL] 6.1 g/dL *LOW* (11/17/18 1:09 AM) Total Protein [6.4-8.4 g/dL] 2.6 g/dL *LOW* (11/17/18 1:09 AM) Albumin Lvl [3.5-5.0 g/dL] 3.5 g/dL (11/17/18 1:09 AM) Globulin [2.7-4.2 g/dL] 0.7 (11/17/18 1:09 AM) A/G Ratio [0.7-1.6] 8.1 mg/dL *LOW* (11/28/18 2:57 PM) 8.4 mg/dL *LOW* (11/28/18 2:15 AM) 7.7 mg/dL *LOW* (11/27/18 4:14 AM) Calcium Lvl [8.5-10.5 mg/dL] 4.0 mg/dL (11/28/18 2:15 AM) 3.6 mg/dL (11/27/18 4:16 AM) 3.9 mg/dL (11/24/18 4:04 AM) Phosphorus [2.5-4.5 mg/dL] 3.6 mg/dL 4 *CRIT* (11/28/18 2:15 AM) 2.5 mg/dL *HI* (11/27/18 4:16 AM) 2.7 mg/dL *HI* (11/25/18 3:15 AM) Magnesium Lvl [1.8-2.4 mg/dL] 46 unit/L (11/17/18 1:09 AM) ALT [0-65 unit/L] 54 unit/L *HI* (11/17/18 1:09 AM) AST [0-37 unit/L] 145 unit/L *HI* (11/17/18 1:09 AM) Alk Phos [39-136 unit/L] 0.4 mg/dL (11/17/18 1:09 AM) Bili Total [0.2-1.3 mg/dL] 1Result Comment: The eGFR is calculated using [...] be mul tiplied by the estimated BMI. 3Result Comment: The eGFR is calculated using the [...] be mul tiplied by the estimated BMI. 4Result Comment: Critical Result(s) called to Rebecca Kim at 11/28/2018 03:18 byJw. Read back OK. CARDIAC ENZYMES 1 2 3 Most recent to oldest [Reference Range]: 422 pg/mL *HI* (11/17/18 1:09 AM) BNP [<=100 pg/mL] SPECIAL CHEMISTRY 1 2 3 Most recent to oldest [Reference Range]: 5.9 % *HI* (11/17/18 11:09 AM) Hgb A1C [<=5.6 %] PARATHYROID PROFILE 1 2 3 Most recent to oldest [Reference Range]: 1.05 mMol/L (11/23/18 12:40 AM) 1.12 mMol/L (11/22/18 4:18 PM) Ca Ion WB [1.05-1.25 mMol/L] 1.07 mMol/L (11/23/18 12:40 AM) 1.07 mMol/L (11/22/18 4:18 PM) Ca Norm WB [1.05-1.25 mMol/L] URINE AND STOOL 1 2 3 Most recent to oldest [Reference Range]: Clear (11/20/18 12:27 AM) UA Turbidity [Clear] Yellow *NA* (11/20/18 12:27 AM) UA Color [Yellow] 5.5 (11/20/18 12:27 AM) UA pH [5.0-8.0] 1.009 (11/20/18 12:27 AM) UA Spec Grav [<=1.030] Negative mg/dL *NA* (11/20/18 12:27 AM) UA Glucose [Negative mg/dL] Negative (11/20/18 12:27 AM) UA Blood [Negative] Negative mg/dL *NA* (11/20/18 12:27 AM) UA Ketones [Negative mg/dL] 100 mg/dL *ABN* (11/20/18 12:27 AM) UA Protein [Negative mg/dL] <=1.0 mg/dL *NA* (11/20/18 12:27 AM) UA Urobilinogen [0.1-1.0 mg/dL] Negative *NA* (11/20/18 12:27 AM) UA Bili [Negative] Negative (11/20/18 12:27 AM) UA Leuk Est [Negative] Negative (11/20/18 12:27 AM) UA Nitrite [Negative] 1 /HPF (11/20/18 12:27 AM) UA WBC [0-5 /HPF] None Seen *NA* (11/20/18 12:27 AM) UA Sq Epi Few /LPF *NA* (11/20/18 12:27 AM) UA Mucus [None Seen /LPF] HEMATOLOGY 1 2 3 Most recent to oldest [Reference Range]: 11.2 K/CMM *HI* (11/28/18 2:15 AM) 7.8 K/CMM (11/27/18 4:16 AM) 6.5 K/CMM (11/26/18 4:51 AM) WBC [3.7-10.4 K/CMM] 4.21 M/CMM *LOW* (11/28/18 2:15 AM) 3.83 M/CMM *LOW* (11/27/18 4:16 AM) 3.48 M/CMM *LOW* (11/26/18 4:51 AM) RBC [4.70-6.10 M/CMM] 11.1 g/dL *LOW* (11/28/18 2:15 AM) 10.3 g/dL *LOW* (11/27/18 4:16 AM) 9.1 g/dL *LOW* (11/26/18 4:51 AM) Hgb [14.0-18.0 g/dL] 33.7 % *LOW* (11/28/18 2:15 AM) 30.3 % *LOW* (11/27/18 4:16 AM) 27.6 % *LOW* (11/26/18 4:51 AM) Hct [42.0-54.0 %] 80.0 fL (11/28/18 2:15 AM) 79.2 fL *LOW* (11/27/18 4:16 AM) 79.5 fL *LOW* (11/26/18 4:51 AM) MCV [80.0-94.0 fL] 26.3 pg *LOW* (11/28/18 2:15 AM) 26.8 pg *LOW* (11/27/18 4:16 AM) 26.1 pg *LOW* (11/26/18 4:51 AM) MCH [27.0-31.0 pg] 32.9 g/dL (11/28/18 2:15 AM) 33.8 g/dL (11/27/18 4:16 AM) 32.8 g/dL (11/26/18 4:51 AM) MCHC [32.0-36.0 g/dL] 21.4 % *HI* (11/28/18 2:15 AM) 20.8 % *HI* (11/27/18 4:16 AM) 20.8 % *HI* (11/26/18 4:51 AM) RDW [11.5-14.5 %] 8.7 fL (11/28/18 2:15 AM) 8.4 fL (11/27/18 4:16 AM) 8.5 fL (11/26/18 4:51 AM) MPV [7.4-10.4 fL] 192 K/CMM (11/28/18 2:15 AM) 147 K/CMM (11/27/18 4:16 AM) 130 K/CMM *LOW* (11/26/18 4:51 AM) Platelet [133-450 K/CMM] 78.9 % *HI* (11/28/18 2:15 AM) 77.8 % *HI* (11/27/18 4:16 AM) 75.4 % *HI* (11/26/18 4:51 AM) Segs [45.0-75.0 %] 0.0 % (11/22/18 4:18 PM) Bands [0.0-11.0 %] 11.7 % *LOW* (11/28/18 2:15 AM) 12.3 % *LOW* (11/27/18 4:16 AM) 14.6 % *LOW* (11/26/18 4:51 AM) Lymphocytes [20.0-40.0 %] 0.0 % (11/22/18 4:18 PM) Atypical Lymphs [<=0.0 %] 7.7 % (11/28/18 2:15 AM) 8.3 % (11/27/18 4:16 AM) 8.3 % (11/26/18 4:51 AM) Monocytes [2.0-12.0 %] 1.3 % (11/28/18 2:15 AM) 1.5 % (11/27/18 4:16 AM) 1.4 % (11/26/18 4:51 AM) Eosinophils [0.0-4.0 %] 0.4 % (11/28/18 2:15 AM) 0.1 % (11/27/18 4:16 AM) 0.3 % (11/26/18 4:51 AM) Basophils [0.0-1.0 %] 8.8 K/CMM *HI* (11/28/18 2:15 AM) 6.1 K/CMM (11/27/18 4:16 AM) 4.9 K/CMM (11/26/18 4:51 AM) Neutrophils # [1.5-8.1 K/CMM] 1.3 K/CMM (11/28/18 2:15 AM) 1.0 K/CMM (11/27/18 4:16 AM) 0.9 K/CMM *LOW* (11/26/18 4:51 AM) Lymphocytes # [1.0-5.5 K/CMM] 0.9 K/CMM *HI* (11/28/18 2:15 AM) 0.6 K/CMM (11/27/18 4:16 AM) 0.5 K/CMM (11/26/18 4:51 AM) Monocytes # [0.0-0.8 K/CMM] 0.1 K/CMM (11/28/18 2:15 AM) 0.1 K/CMM (11/27/18 4:16 AM) 0.1 K/CMM (11/26/18 4:51 AM) Eosinophils # [0.0-0.5 K/CMM] 0.1 K/CMM (11/22/18 4:18 PM) Basophils # [0.0-0.2 K/CMM] 1+ *ABN* (11/28/18 2:15 AM) 1+ *ABN* (11/24/18 11:50 AM) Anisocyte [None Seen] 1+ *ABN* (11/23/18 12:40 AM) 1+ *ABN* (11/22/18 4:44 AM) 1+ *ABN* (11/21/18 12:24 AM) Microcyte [None Seen] Normal (11/22/18 4:18 PM) Plt Morph 18.6 seconds *HI* (11/28/18 2:15 AM) 15.5 seconds *HI* (11/27/18 4:14 AM) 14.5 seconds (11/26/18 4:51 AM) PT [12.0-14.7 seconds] 1.59 *HI* (11/28/18 2:15 AM) 1.25 *HI* (11/27/18 4:14 AM) 1.15 (11/26/18 4:51 AM) INR [0.85-1.17] 153 seconds *NA* (11/23/18 11:30 AM) 162 seconds *NA* (11/23/18 10:15 AM) 166 seconds *NA* (11/23/18 8:08 AM) POC Activated Clotting Time 149.4 seconds 1 *CRIT* (11/25/18 3:15 AM) 115.2 seconds 2 *CRIT* (11/24/18 6:49 PM) 36.7 seconds *HI* (11/24/18 11:50 AM) PTT [22.9-35.8 seconds] 152 PRU *NA* (11/26/18 4:51 AM) 198 PRU *NA* (11/25/18 3:15 AM) Plav Effect Plt 1Result Comment: Critical Result(s) called to ANAHI ANTONIO at 11/25/2018 06:35 bySSSpencer. Read back OK. 2Result Comment: Critical Result(s) called to Anahi Antonio at 11/24/2018 21:06 by Maurice Combs. Read back OK. Immunizations No data available for this section Procedures No data available for this section Social History Social History Type Response Smoking Status Former smoker; Type: Cigarettes; Previous treatment: None; Ready to change: No; Concerns about tobacco use in household: No; Exposure to Tobacco Smoke None; Cigarette Smoking Last 365 Days No; Reg Smoking Cessation Counseling Yes entered on: 11/17/18 Assessment and Plan Extracted from: Title: [facility] Inpatient Progress Note Author: Heaven Conway MD Date: 11/28/18 Subjective: Had multiple bowel movements yesterday. Renal parameters worse today. No CP Health Status Allergies: Allergies (14) ActiveReaction barium sulfateNone Documented BenadrylNone Documented ciprofloxacinNone Documented contrast media (iodine-based)None Documented hydrALAZINENone Documented HYDROcodoneNone Documented iodine topicalNone Documented JanuviaNone Documented levoFLOXacinNone Documented metFORMINNone Documented propoxypheneNone Documented VicodinNone Documented XareltoNone Documented ZocorNone Documented Physical Examination VS/Measurements Measurements from flowsheet : Measurements 11/16/2018 23:08 Heparin Dosing Weight (kg) 69.09 11/16/2018 23:00 Height 180.34 cm Height Collection Method Stated Weight 69.091 kg Dosing Weight Difference Percent -0.653 % Dosing Weight Collection Method Measured Body Surface Area 1.8604 m2 Body Mass Index 21.24 m2 , Vital Signs (last 24 hrs) Last Charted Temp Azzvfrdg30.9 DegF (NOV 28 07:30) Heart Rate Dkqndj41 bpm (NOV 28 10:00) Resp Rate 16 BRMIN (NOV 28 10:00) FTB751 mmHg (NOV 28:) DBP63 mmHg (NOV 28:) FdA756 % (NOV 28:) General: Alert and oriented, No acute distress. HENT: Normocephalic. Neck: No jugular venous distention. Respiratory: Lungs are clear to auscultation, Respirations are non-labored, Breath sounds are equal, Symmetrical chest wall expansion. Cardiovascular: Normal rate, Regular rhythm, Normal peripheral perfusion, No edema, Soft grade II/ systolic murmur over apex. Gastrointestinal: Soft, Non-tender, Non-distended, Normal bowel sounds. Neurologic: Alert, Oriented, Normal sensory. Psychiatric: Cooperative, Appropriate mood & affect, Normal judgment. Extremities: RFA and RFV sheaths in place Impression and Plan 83 yoear old man with a h/o clear cell RCC on Nivolumab, h/o PE on coumadin, HTN, renal insufficiency, and severe multivessel CAD, transferred from [facility] on 11/06/2018 for NSTEMI. He underwent LHC on 11/08/2017 which revealed 50% stenosis if the distal LM to the prox LAD, 75% stenosis of the prox to mid LAD, 100% occlusion of the prox Circ, and 70% stenosis of the mid posterior descending artery. Transferred for consideration of CABG vs. high risk PCI. Underwent Impella-supported PCI LM, LAD and RCA-PDA 11/22, as well as POBA LCx. #Severe 3 vessel CAD now s/p high-risk LM PCI, LAD PCI, POBA of LCX, PCI of RCA-PDA - Continue DAPT with aspirin and plavix.will need triple therapy given h/o PE. - Continue atorvastatin 40 qday - Continue metoprolol 12.5 q12h, hold if HR <50 or dizzy # HTN - Continue amlodipine 10 qday, imdur 60 mg daily. Holding losartan due to ELADIO. # H/o adrenal insufficiency - continue prednisone 5 mg po qday # H/o PE - heparin gtt while in house - stopped today due to hematoma - no bridging - Will need triple therapy with plavix and wafarin upon discharge. - may consider d/c aspirin as outpatient - VQ scan to rule out chronic PE - negative Nausea/vomiting could be related to ileus vs GERD. - Resolved, had multiple BM last night. #Hematoma - Hold heparin. - Continue to monitor HH. soft and smaller in size. ELADIO: - Likely due to prerenal. - Will give bolus of NS 250cc. plan to repeat BMP this after noon, if Cr is trending down then plan to discharge home. #FEN/GI/PPx - cardiac diet Dispo: IMU. Possible discharge today if renal parameters improve with NS bolus. Likely plan to discharge from [facility] to home, currently no need to transfer back to [facility] following PCI Addendum by I saw and examined the patient with Heaven Conway MD and agree with plan and [place] assessment as above. I personally reviewed the labs, diagnostic imaging and documentation Stock, and discussed the plan of care with team and patient. Cristal Boone MD 83 yo male with history of RCC, PE on coumadin, hypertension, CKD who came with NSTEMi, on with 3 vessel disease, s/p PCI to LM, LAD, and RCA-PDA plus POBA 11/28/2018 to LCx.ON ASA/plavix and coumadin for history of PE. 16:51 complaining of constipation yesterday with mildly dilated bowel on KUB, received enema and bowel regimen with several bowel movements overnight, no diarrhea. NO fever, no abdominal pain. BP 120-140s/60s Alert, oriented, not in distress Neck; No jVD CHest; CTA bilateral Heart; RRR, no gallop, no rub Abdomen:soft, non tender, non distended, BS+ ext: no edema, left groing hematoma improving. Lab: renal function worse today, CR 1.85, normal electrolytes, WBC 11.2 hb 11.1 plat 192 Improvement of renal function after IV fluids with SCr 1.6 Plan: --continue coumadin --PT/OT --discharge home with repeat labs on monday Extracted from: Title: Preoperative H&P: HF Surgery Author: Ghazala Olivo Date: 11/19/18 83 y/o HM with metastatic clear cell renal cell carcinoma on Nivolumab, h/o bilateral DVTs and PE (on Coumadin), adrenal insufficiency (on Prednisone 5mg forseveral years),COPD, mild dementia, diabetes mellitus (on PO meds), fatty liver, HTN, HLD, previous FL, multiple previous strokes and TIAs who presented to [facility] on 11/06/18 with chest pain and SOB and was diagnosed with NSTEMI.He was transferred to [facility] for CABG vs high risk PCI. HF Surgery is asked to see the patient to evaluate for CABG. Coumadin has been held since prior to transfer to [facility]. On Heparin gtt. INR 1.10 and PTT 69. PFTs, Vein mapping, and Carotid U/S completed. Patient discussed with Dr. Dow and Dr. Hurley. Patient is high risk for surgery given his multiple medical comorbidities, particularly his metastatic RCC, advanced age, multiple previous strokes/TIAs, chronic lung disease, and DVTs/PE. STS risk score does not account for metastastic renal cell carcinoma (s/p nephrectomy). Discussed with [facility] Cardiology, recommend high risk PCI. STS Risk Score (isolated CABG) Risk of Mortality: 3.047% Renal Failure: 2.502% Permanent Stroke: 1.921% Prolonged Ventilation: 11.245% DSW Infection: 0.217% Reoperation: 3.880% Morbidity or Mortality: 17.716% Short Length of Stay: 18.495% Long Length of Stay: 10.518% Extracted from: Title: Heart Failure Admission H&P Author: Cristal Urena Date: 11/17/18 * Basic Information Source of history: Self, Family member. Present at bedside: Family member. Referral source: Direct physician admit. History limitation: None. History of Present Illness 83 yoear old man with a h/o clear cell RCC on Nivolumab, h/o PE on coumadin, HTN, renal insufficiency, and severe multivessel CAD, transferred from [facility] for CAB vs HR-PCI evaluation. Patient was admitted to [facility] on 11/06/2018 for chest pain and SOB. He underwent LHC on 11/08/2017 which revealed 50% stenosis if the distal LM to the prox LAD, 75% stenosis of the prox to mid LAD, 100% occlusion of the prox Circ, and 70% stenosis of the mid posterior descending artery. He currently denies chest pain, SOB, dizziness, leg swelling, orthopnea, or PND. Review of Systems Negative except as above Health Status Allergies: Allergic Reactions (All) Severity Not Documented Aspirin- No reactions were documented. Barium sulfate- No reactions were documented. Benadryl- No reactions were documented. Ciprofloxacin- No reactions were documented. Contrast media (iodine-based)- No reactions were documented. HydrALAZINE- No reactions were documented. HYDROcodone- No reactions were documented. Iodine topical- No reactions were documented. Januvia- No reactions were documented. LevoFLOXacin- No reactions were documented. MetFORMIN- No reactions were documented. Propoxyphene- No reactions were documented. Vicodin- No reactions were documented. Xarelto- No reactions were documented. Zocor- No reactions were documented., Allergies (15) ActiveReaction aspirinNone Documented barium sulfateNone Documented BenadrylNone Documented ciprofloxacinNone Documented contrast media (iodine-based)None Documented hydrALAZINENone Documented HYDROcodoneNone Documented iodine topicalNone Documented JanuviaNone Documented levoFLOXacinNone Documented metFORMINNone Documented propoxypheneNone Documented VicodinNone Documented XareltoNone Documented ZocorNone Documented Current medications: (Selected) Inpatient Medications Ordered Heparin 40 unit/kg Bolus (Heparin Dosing Weight): Pharmacy To Manage, IVP, PRN, PRN: Heparin Protocol Heparin 80 unit/kg Bolus (Heparin Dosing Weight): Pharmacy To Manage, IVP, PRN, PRN: Heparin Protocol amLODIPine: 5 mg, PO, BID calcium gluconate: 2 gm, IVPB, PRN, PRN: Abnormal Lab Result calcium gluconate: 3 gm, IVPB, PRN, PRN: Abnormal Lab Result heparin additive 25,000 unit [18 unit/kg/hr] + Premix Diluent Dextrose 5% 500 mL: 24.87 ml/hr, IV, Stop: 12/17/18 0:28:00 ACQUISITIONS EDITOR levothyroxine: 25 microgram, PO, Daily magnesium oxide: 800 mg, PO, PRN, PRN: Abnormal Lab Result magnesium sulfate: 1 gm, IVPB, PRN, PRN: Abnormal Lab Result magnesium sulfate: 2 gm, IVPB, PRN, PRN: Abnormal Lab Result metoprolol tartrate: 25 mg, PO, BID omeprazole: 40 mg, PO, Daily potassium chloride: 10 mEq, IVPB, PRN, PRN: Abnormal Lab Result potassium chloride: 20 mEq, NJ, PRN, PRN: Abnormal Lab Result potassium chloride: 20 mEq, PO, PRN, PRN: Abnormal Lab Result potassium phosphate-sodium phosphate 250 mg-280 mg-160 mg oral powder for reconstitution: 2 pkt, PO, PRN, PRN: Abnormal Lab Result potassium phosphate: 15 mmol, IVPB, PRN, PRN: Abnormal Lab Result potassium phosphate: 30 mmol, IVPB, PRN, PRN: Abnormal Lab Result predniSONE: 5 mg, PO, Daily sodium phosphate: 15 mmol, IVPB, PRN, PRN: Abnormal Lab Result sodium phosphate: 30 mmol, IVPB, PRN, PRN: Abnormal Lab Result Documented Medications Suspended Advair Diskus 250 mcg-50 mcg inhalation powder: 1 puff, INHALATION, BID, 0 Refill(s) amLODIPine: 5 mg, PO, BID, 0 Refill(s) hydrochlorothiazide: 25 mg, PO, Daily, 0 Refill(s) levothyroxine: 25 microgram, PO, Daily, 0 Refill(s) meclizine 25 mg oral tablet: 25 mg, 1 tab, PO, Daily, 0 Refill(s) metoprolol tartrate: 25 mg, PO, BID, 0 Refill(s) non-formulary: 80 mg, PO, Daily, Take 2 capsules (80mg) by mouth every morning. Take on a empty stomach at least 1 hour before or 2 hours after breakfast or lunch, 0 Refill(s) omeprazole 40 mg oral delayed release capsule: 40 mg, 1 cap, PO, Daily, 0 Refill(s) predniSONE: 5 mg, PO, Daily, Quantity sufficient, 0 Refill(s) warfarin: 3 mg, PO, Daily, takes 3mg Monday and Monday, 0 Refill(s) warfarin: 4 mg, PO, Daily, Takes 4mg Monday-Monday, 0 Refill(s), Medications (21) Active Scheduled: (5) amLODIPine 5 mg, PO, BID levothyroxine 25 microgram, PO, Daily metoprolol 25 mg, PO, BID omeprazole 40 mg, PO, Daily predniSONE 5 mg, PO, Daily Continuous: (1) heparin 25,000 unit [18 unit/kg/hr] + Premix Diluent Dextrose 5% 500 mL 500 mL, IV, 24.87 ml/hr PRN: (15) calcium gluconate 2 gm, IVPB, PRN calcium gluconate 3 gm, IVPB, PRN heparin Pharmacy To Manage, IVP, PRN heparin Pharmacy To Manage, IVP, PRN magnesium oxide 800 mg, PO, PRN magnesium sulfate 1 gm, IVPB, PRN magnesium sulfate 2 gm, IVPB, PRN potassium chloride 20 mEq, PO, PRN potassium chloride 20 mEq, NJ, PRN potassium chloride 10 mEq, IVPB, PRN potassium phosphate 15 mmol, IVPB, PRN potassium phosphate 30 mmol, IVPB, PRN potassium phosphate-sodium phosphate 2 pkt, PO, PRN sodium phosphate 15 mmol, IVPB, PRN sodium phosphate 30 mmol, IVPB, PRN Problem list: No qualifying data available Histories Past Medical History: Resolved Asthma ([id number]): Resolved. Heart attack ([id number]): Resolved. Stroke ([id number]): Resolved. Hypertension ([id number]): Resolved. Family History: Procedure history: No active procedure history items have been selected or recorded. Social History Social & Psychosocial Habits Tobacco 03/04/2018 Use: Former smoker Type: Cigarettes Ready to change: No Concerns about tobacco use in household: No Exposure to Tobacco Smoke None Cigarette Smoking Last 365 Days No Reg Smoking Cessation Counseling No . Physical Examination VS/Measurements Measurements from flowsheet : Measurements 11/16/2018 23:08 Heparin Dosing Weight (kg) 69.09 11/16/2018 23:00 Height 180.34 cm Height Collection Method Stated Weight 69.091 kg Dosing Weight Difference Percent -0.653 % Dosing Weight Collection Method Measured Body Surface Area 1.8604 m2 Body Mass Index 21.24 m2 , Vital Signs (last 24 hrs) Last Charted Temp Oral97.7 DegF (NOV 16 22:37) Heart Rate ApicalL 58bpm (NOV 16:00) Resp Rate H 23BRMIN (NOV 16:00) SBPH 155mmHg (NOV 16:00) DBP73 mmHg (NOV 16:00) MnY447 % (NOV 16:00) Yujrlz78.091 kg (NOV 16:00) Sfbmmz545.34 cm (NOV 16:) BMI21.24 (NOV 16:) General: Alert and oriented, No acute distress. HENT: Normocephalic. Neck: No jugular venous distention. Respiratory: Lungs are clear to auscultation, Respirations are non-labored, Breath sounds are equal, Symmetrical chest wall expansion. Cardiovascular: Normal rate, Regular rhythm, Normal peripheral perfusion, No edema, Soft grade II/ systolic murmur over apex. Gastrointestinal: Soft, Non-tender, Non-distended, Normal bowel sounds. Neurologic: Alert, Oriented, Normal sensory. Psychiatric: Cooperative, Appropriate mood & affect, Normal judgment. Review / Management Results review: No qualifying data available. 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 #Severe 3 vessel CAD Patient was admitted to [facility] on 11/06/2018 for NSTEMI. He underwent LHC on 11/08/2017 which revealed 50% stenosis if the distal LM to the prox LAD, 75% stenosis of the prox to mid LAD, 100% occlusion of the prox Circ, and 70% stenosis of the mid posterior descending artery. - transerred here for consideration of CAB vs HR-PCI - TTE revealed EF 52% at [facility] with regional [facility]. Repeat TTE here - atorvastatin 40 qday - hold ASA, patient with h/o allergic reaction - hold plavix, patient under consideration for CAB - metoprolol 12.5 q12h, hold if HR <50 or dizzy #HTN Amlodipine 10 qday metoprolol 12.5 bid lasix 40 qday #h/o adrenal insufficiency - continue prednisone 5 mg po qday #H/o PE On coumadin at home - heparin gtt while in house #RCC #FEN/GI/PPx - cardiac diet - heparin gtt to be discussed with AHF team in AM Orion Hardy, PGY4 [facility] Division of Cardiovascular Medicine Attestation I saw and examined the patient with Dr Hardy and agree with plan and assessment as above. I personally reviewed the labs, diagnostic imaging and documentation and discussed the plan of care with team and patient. Currently chest pain free, with no complains, on heparin drip, renal function stable. No coronary angiogram images available, we will get them from [facility] C[facility] consult. Continue heparin, and amlodipine, metoprolol, with bradycardia that limtis titration of metoprolol. If he continues hypertensive tomorrow we will increase hydralazine Addendum by I saw and examined the patient on 11/17/18 and agree with plan and assessment as above. Cristal Urena MD on 11/18/2018 14:28
[2018-12-22] MEDS ORDERED: SODIUM CHLORIDE 0.9% 1000ML 1,000 ML IV STA (12:17)
[2018-12-22] MEDS ORDERED: NITROGLYCERIN 2% OINT 1 GM PKT TOP ONE (12:30)
--- NOTE | 2018-12-22 13:12 | Diagnostic Imaging Report ---
EXAMINATION: CHEST SINGLE (PORTABLE) INDICATION: Chest pain. COMPARISON: Chest radiograph 01/15/14. FINDINGS: TUBES and LINES: None. LUNGS: Lungs are well inflated. No evidence of pneumonia or pulmonary edema. Rounded opacities projecting over the bilateral lower lungs likely reflect nipple shadows. Minimal linear subsegmental atelectasis at the left lung base. PLEURA: No pleural effusion or pneumothorax. HEART AND MEDIASTINUM: The cardiomediastinal silhouette is unremarkable. Coronary stent is noted. Atherosclerotic calcifications of the aortic arch. BONES AND SOFT TISSUES: No acute osseous lesion. Soft tissues are unremarkable. UPPER ABDOMEN: No free air under the diaphragm. IMPRESSION: No acute radiographic abnormality. Signed by: Dr. Brennon Mcmullen MD on 12/22/2018 1:09 PM
[2018-12-22 13:34] LABS: BASOPHILS % 0.2 % (0.0-1.0); EOSINOPHILS % 0.5 % (0.0-6.0); HEMATOCRIT 36.6 % (38.2-49.6); HEMOGLOBIN 11.3 g/dL (14.0-18.0); LYMPHOCYTES # (AUTO) 0.4 (1.0-3.2); LYMPHOCYTES % 4.6 % (18.0-39.1); MEAN CORPUSCULAR HEMOGLOBIN 25.8 pg (28-32); MEAN CORPUSCULAR HGB CONC 30.9 g/dL (31-35); MEAN CORPUSCULAR VOLUME 83.6 fL (81-99); MONOCYTES # (AUTO) 0.5 (0.2-0.8); MONOCYTES % 6.3 % (4.4-11.3); NEUTROPHILS # (AUTO) 7.3 (2.1-6.9); NEUTROPHILS % 86.9 % (38.7-80.0); PLATELET COUNT 200 x10e3/uL (140-360); RED BLOOD COUNT 4.38 x10e6/uL (4.3-5.7); RED CELL DISTRIBUTION WIDTH 18.2 % (11.7-14.4)
[2018-12-22 13:43] LABS: INR 1.68; PARTIAL THROMBOPLASTIN TIME 46.2 seconds (23.8-35.5); PROTHROMBIN TIME 21.1 seconds (11.9-14.5)
[2018-12-22 13:52] LABS: ALBUMIN 3.1 g/dL (3.5-5.0); CALCIUM 9.2 mg/dL (8.4-10.2); CREATININE, SERUM 1.67 mg/dL (0.72-1.25)
[2018-12-22 13:59] LABS: CREATINE KINASE MB 0.8 ng/mL (0-5.0)
[2018-12-22] MEDS: FAMOTIDINE 20 MG TAB PO SCH (14:30)
[2018-12-22] MEDS ORDERED: NITROGLYCERIN 0.4 MG SUBL SL PRN (14:30)
[2018-12-22] MEDS ORDERED: ONDANSETRON HCL INJ 2MG/ML 2ML 2 MG/ML VIAL IV PRN (14:30)
[2018-12-22] MEDS ORDERED: PANTOPRAZOLE SO40 MG PO (15:51)
[2018-12-22] MEDS ORDERED: ISOSORBIDE MONO20 MG PO (15:51)
[2018-12-22] MEDS ORDERED: PLAVIX75 MG PO ×2 (15:51→18:42)
--- OUTSIDE RECORDS SUMMARY | 2018-12-22 15:52 | XMS REPORT | Clinical Summary ---
Author Author [facility] Address Unknown Phone Unavailable Care Team Providers Care [employer] Distribution Consultant Name Role Phone Kali Merchant MD PCP [...] more information, joni owusu contact: Arturo Rasmussen [address] [place] [address]
--- OUTSIDE RECORDS SUMMARY | 2018-12-22 15:53 | XMS REPORT ---
Author Author [facility] Address Unknown Phone Unavailable Care Team Providers Care Kiln Cleaner Name Role Phone Do HAAS Unavailable Unavailable Problems This patient has no known problems. Allergies, Adverse Reactions, Alerts This patient has no known allergies or adverse reactions. Medications This patient has no known medications. Results Test Description Test Time Test Comments Text Results Atomic Results Result Comments CHEST SINGLE (PORTABLE) 2018-12-22 13:07:00 [place] [id number] Patient Name: OMKAR CASTILLO JR MR #: [id number] : 1935 Age/Sex: 83/M Req #: [id number] Adm Physician: Ordered by: RIN HAAS MD Report #: [id number] Location: ER Room/Bed: Procedure: [id number] DX/CHEST SINGLE (PORTABLE) Exam Date: 12/22/18 Exam Time: 1240 REPORT STATUS: Signed EXAMINATION: CHEST SINGLE (PORTABLE) INDICATION: Chest pain. COMPARISON: Chest radiograph 01/15/14. FINDINGS: TUBES and LINES: None. LUNGS: Lungs are well inflated. No evidence of pneumonia or pulmonary edema. Rounded opacities projecting over the bilateral lower lungs likely reflect nipple shadows. Minimal linear subsegmental atelectasis at the left lung base. PLEURA: No pleural effusion or pneumothorax. HEART AND MEDIASTINUM: The cardiomediastinal silhouette is unremarkable. Coronary stent is noted. Atherosclerotic calcifications of the aortic arch. BONES AND SOFT TISSUES: No acute osseous lesion. Soft tissues are unremarkable. UPPER ABDOMEN: No free air under the diaphragm. IMPRESSION: No acute radiographic abnormality. Signed by: Dr. Sharonda Kat MD on 12/22/2018 1:09 PM Dictated By: SHARONDA KAT MD [id number] Transcribed By: KRISTIN on 12/22/18 1306 COPY TO: RIN HAAS MD
[2018-12-22 15:57] VITALS: BP 167/69
[2018-12-22 16:06] VITALS: BP 167/69
--- NOTE | 2018-12-22 16:15 | NUR ---
patient received from er via stretcher. see admit assess. SB/SR with occasional PAC. family at BS. no complaints of pain at this time.
[2018-12-22 17:01] VITALS: BP 167/69
[2018-12-22] MEDS: NITROGLYCERIN 2% OINT 1 GM PKT TOP SCH ×2 (18:32→23:27)
[2018-12-22] MEDS ORDERED: ASPIR 8181 MG (18:42)
[2018-12-22 19:30] VITALS: BP 119/58
[2018-12-22 22:32] VITALS: BP 119/58
[2018-12-22 23:26] VITALS: BP 127/62
[2018-12-22 23:59] LABS: CREATINE KINASE MB 0.6 ng/mL (0-5.0)
[2018-12-23] MEDS: FAMOTIDINE 20 MG TAB PO SCH (02:50)
[2018-12-23 04:05] VITALS: BP 134/64
[2018-12-23] MEDS: NITROGLYCERIN 2% OINT 1 GM PKT TOP SCH (04:29)
[2018-12-23 05:11] LABS: BASOPHILS % 0.3 % (0.0-1.0); EOSINOPHILS # (AUTO) 0.2 (0.0-0.4); HEMATOCRIT 31.7 % (38.2-49.6); HEMOGLOBIN 9.5 g/dL (14.0-18.0); LYMPHOCYTES % 13.2 % (18.0-39.1); MEAN CORPUSCULAR HEMOGLOBIN 25.5 pg (28-32); MEAN CORPUSCULAR VOLUME 85.2 fL (81-99); MONOCYTES # (AUTO) 0.7 (0.2-0.8); MONOCYTES % 8.8 % (4.4-11.3); NEUTROPHILS # (AUTO) 5.5 (2.1-6.9); NEUTROPHILS % 74.9 % (38.7-80.0); PLATELET COUNT 187 x10e3/uL (140-360); RED BLOOD COUNT 3.72 x10e6/uL (4.3-5.7); RED CELL DISTRIBUTION WIDTH 17.6 % (11.7-14.4)
[2018-12-23 05:34] LABS: CALCIUM 8.7 mg/dL (8.4-10.2); CREATININE, SERUM 1.27 mg/dL (0.72-1.25)
[2018-12-23 06:03] LABS: CREATINE KINASE MB 0.4 ng/mL (0-5.0)
[2018-12-23 08:21] VITALS: BP 148/67
[2018-12-23] MEDS ORDERED: GABAPENTIN 100 MG CAP PO PRN (08:45)
[2018-12-23] MEDS ORDERED: ASPIRIN 81 MG CHEW TAB PO SCH (09:00)
[2018-12-23] MEDS ORDERED: RANOLAZINE 500 MG TABSR PO SCH (09:00)
[2018-12-23] MEDS ORDERED: AMLODIPINE BESYLATE 10 MG TAB PO SCH (09:00)
[2018-12-23] MEDS ORDERED: ASPIRIN 81 MG ENTERIC COATED PO SCH (09:00)
[2018-12-23] MEDS ORDERED: CLOPIDOGREL BISULFATE 75 MG TAB PO SCH (09:00)
[2018-12-23] MEDS ORDERED: PANTOPRAZOLE SOD 40 MG TABEC PO SCH (09:00)
[2018-12-23] MEDS ORDERED: METOPROLOL TARTRATE 50 MG TAB PO SCH (09:00)
[2018-12-23] MEDS ORDERED: ISOSORBIDE MONONITRATE 20 MG TAB PO SCH (09:00)
[2018-12-23 12:50] VITALS: BP 143/66
[2018-12-23] MEDS ORDERED: WARFARIN SOD 3 MG TAB PO SCH (17:00)
--- NOTE | 2018-12-23 17:29 | Consultation ---
DATE OF CONSULTATION: 12/22/2018 REASON FOR CONSULTATION: Chest pain. CONSULTING PHYSICIAN: Dr. Stark. HISTORY OF PRESENT ILLNESS: This is a pleasant 83-year-old male with multiple medical problems, who presented with chest pain. Currently, the patient and at the bedside. Yesterday, he started having left substernal chest pain on a scale of 9/10 that radiated to his neck and bilateral shoulders that he decided to come into the emergency room for evaluation. He was recently admitted and discharged from [facility] last month after having a cardiac catheterization with 5 stent placements. He denied any palpitations, any diaphoresis, any headache, nausea, or vomiting. Troponin x3 were negative. EKG showed normal sinus rhythm with no ST abnormalities. BNP was 145. PAST MEDICAL HISTORY: Pulmonary emboli, DVT, asthma, hypertension, diabetes, gynecomastia, CAD with stents, hypothyroidism, right renal cell carcinoma, and emphysema. PAST SURGICAL HISTORY: Left nephrectomy, polyp removal, mastoidectomy, and cardiac catheterization with stent placement. FAMILY HISTORY: Positive for hypertension. SOCIAL HISTORY: No smoking. No drinking. He lives at home with family. MEDICATIONS: See medication list. ALLERGIES: HE HAS MULTIPLE ALLERGIES. SEE CHART. REVIEW OF SYSTEMS: Negative except those mentioned above. PHYSICAL EXAMINATION: VITAL SIGNS: Temperature 97, heart rate 75, blood pressure 134/64, respirations 18, oxygen saturation 97% on room air. GENERAL: He is awake, alert, and oriented x3. HEENT: Mucous membranes are moist. NECK: Supple. LUNGS: Bilaterally clear to auscultation. CARDIOVASCULAR: S1, S2 present. ABDOMEN: Soft. NEUROLOGIC: Intact. EXTREMITIES: With no edema. LABORATORY DATA: Sodium 141, potassium 4.0, chloride 109, CO2 of 23, BUN 31, creatinine 1.37, glucose 85. White blood cells 7.37, hemoglobin 9.5, hematocrit 31.7, platelets 187. PT 21.1, PTT 46.2, INR 1.68. IMPRESSION: 1. Chest pain. 2. Coronary artery disease with recent stents. 3. Chronic kidney disease. 4. Diabetes. 5. Hypothyroidism. 6. Hypertension. 7. History of pulmonary embolism and deep vein thrombosis. 8. History of right renal carcinoma. ASSESSMENT AND PLAN: 1. Troponin x3 were negative. 2. We will go ahead and get an echocardiogram to reassess the LV and valve function. 3. We will go ahead and add Ranexa b.i.d. 4. He had recent cardiac catheterization with 5 placements 1 month ago at [facility]. 5. We will continue his Coumadin, INR 1.68. Further cardiac workup pending clinical course. Thank you for this consultation. Dictated by Lima Maxwell, BULKING MACHINE OPERATOR MD TOLU Swanson/ZEENAT /[id number]
[2018-12-24] MEDS ORDERED: WARFARIN SOD 2 MG TAB PO SCH (17:00)
== END 2018-12-23 12:40 | disposition home or self-care (01) ==
LOC: ER 11:50 → ERHOLD 15:49 → IMCU 15:55
PROVIDERS: ADMIT Internal Medicine; ATTEND Internal Medicine
DX: R07.9 Chest pain, unspecified (principal); N18.9 Chronic kidney disease, unspecified; E11.22 Type 2 diabetes mellitus with diabetic chronic kidney disease; I13.10 Hypertensive heart and chronic kidney disease without heart failure, with stage 1 through stage 4 chronic kidney disease, or unspecified chronic kidney disease; I25.10 Atherosclerotic heart disease of native coronary artery without angina pectoris; E03.9 Hypothyroidism, unspecified; Z85.53 Personal history of malignant neoplasm of renal pelvis; Z90.5 Acquired absence of kidney; Z88.6 Allergy status to analgesic agent; Z88.1 Allergy status to other antibiotic agents; Z88.5 Allergy status to narcotic agent; Z88.8 Allergy status to other drugs, medicaments and biological substances; Z91.048 Other nonmedicinal substance allergy status; Z86.718 Personal history of other venous thrombosis and embolism; Z86.711 Personal history of pulmonary embolism; Z95.5 Presence of coronary angioplasty implant and graft; Z79.82 Long term (current) use of aspirin; Z79.84 Long term (current) use of oral hypoglycemic drugs; Z79.01 Long term (current) use of anticoagulants
CPT/HCPCS: 36415 ×2; 71045; 80048; 80053; 82550 ×2; 82553 ×2; 82948 ×2; 83880; 84484 ×2; 85025 ×2; 85610; 85730; 93005; 93306; 99284; G0378 ×2; J7030; S0164